=== PATIENT | female | born 1965 | race Caucasian/White ===

== ENCOUNTER 2025-06-19 11:11 | Inpatient (IN) | payer MEDICARE, SELFPAY ==
[2025-06-19] VITALS (19 sets, daily range): BP systolic 119–147; BP diastolic 38–71; PULSE 68–87; RESP 13–24; TEMP 36.5–36.9; O2SAT 89–100; BMI 91.0
--- NOTE | ~2025-06-19 | US_ITS ---
US renal BI 06/20/2025 16:39 Procedure: Realtime transabdominal ultrasound of the kidneys and bladder. Indication: Kidney disease Right renal echotexture is grossly normal, although evaluation limited due to patient body habitus. Right kidney measures 12.2 cm. No hydronephrosis. The left kidney is not visualized. Wren catheter present in the bladder limiting evaluation. Impression: 1: Limited study due to patient body habitus. No significant abnormality of the right kidney identified. Left kidney not visualized. Reviewed, dictated and finalized at location O. Impression: 1: Limited study due to patient body habitus. No significant abnormality of the right kidney identified. Left kidney not visualized.
--- NOTE | ~2025-06-19 | XR_ITS ---
EXAMINATION: XR chest 2V DATE: 06/19/2025 12:06 INDICATION: Shortness of breath TECHNIQUE: frontal view of the chest was obtained. COMPARISON: None FINDINGS: Elevation the right hemidiaphragm. Cardiomegaly and pulmonary vascular congestion. Opacities in the left mid and lower lung zones. No pleural effusion or pneumothorax. IMPRESSION: 1. Cardiomegaly with pulmonary vascular congestion. 2. Opacities in the left mid and lower lung zones which could represent atelectasis and/or pneumonia. 3. Elevation of the right hemidiaphragm. Reviewed, dictated and finalized at location A. IMPRESSION: 1. Cardiomegaly with pulmonary vascular congestion. 2. Opacities in the left mid and lower lung zones which could represent atelect asis and/or pneumonia. 3. Elevation of the right hemidiaphragm.
--- NOTE | ~2025-06-19 | US_ITS ---
US venous doppler [facility] 06/20/2025 16:39 Indication: Leg swelling Procedure: Study limited due to patient body habitus. Venous structures not visualized in either lower extremity. Comparison: No prior studies for comparison. Findings: Limited study due to patient body habitus. Impression: 1: Lower extremity venous structures not visualized due to body habitus. Cannot exclude deep venous thrombosis. Reviewed, dictated and finalized at location O. Impression: 1: Lower extremity venous structures not visualized due to body habitus. Cannot exclude deep venous thrombosis.
--- NOTE | 2025-06-19 11:14 | ECG_ITS ---
Test Date: 2025-06-19 11:16:38 Measurements Intervals [place] Rate: 86 P: 76 DE: 181 QRS: 91 QRSD: 104 T: 90 QT: 414 QTc: 497 Interpretive Statements SINUS RHYTHM LOW QRS VOLTAGE IN PRECORDIAL LEADS [QRS DEFLECTION < 1.0 mV IN CHEST LEADS] No previous ECG available for comparison Electronically Signed On 06-19-2025 14:38:56 CDT by Jayjay Cloud M.D.
[2025-06-19 11:41] LABS: Hematocrit 22.4 % (37.0-47.0); Immature Granulocyte Percent A 0.6 % (0-0.5); Lymphocytes Absolute Auto 0.90 K/mm3 (0.9-3.2); Mean Corpuscular HGB Conc 29.0 g/dl (32-36); Mean Corpuscular Hemoglobin 25.4 pg (26-34); Mean Corpuscular Volume 87.5 fl (80-100); Nucleated Red Blood Cells Absolute Auto 0.000 K/mm3 (0.0-0.012); Nucleated Red Blood Cells Perc 0.0 % (0.0-0.2); Platelet Count Result 140 k/mm3 (150-375); Red Blood Count 2.56 M/mm3 (4.2-5.4); White Blood Count 14.1 K/mm3 (4.5-10.0)
[2025-06-19 11:58] LABS: Alanine Aminotransferase 18 U/L (6-35); Albumin Level 3.3 g/dL (3.5-5.1); Alkaline Phosphatase 82 U/L (38-126); Aspartate Amino Transferase 45 U/L (14-36); Bilirubin,Total 0.9 mg/dL (0.2-1.3); Blood Urea Nitrogen 51 mg/dL (7-17); Calcium 8.1 mg/dL (8.4-10.2); Chloride 85 mmol/L (98-107); Estimated CRCL calculation 63 ml/min; Estimated Glomerular Filt Rate 27; Glucose 150 mg/dL (65-110); Potassium 3.7 mmol/L (3.4-5.0); Sodium 137 mmol/L (137-145); Total Protein 8.8 g/dL (6.3-8.2)
[2025-06-19 12:00] LABS: Hemoglobin 6.5 g/dL (12.0-15.0)
[2025-06-19 12:11] LABS: Carbon Dioxide > 40 mmol/L (22-30); NT Pro B Type Natriuretic Pept 9940 pg/mL (19.9-100); Troponin I 0.463 ng/mL (0.000-0.034)
[2025-06-19 12:16] LABS: INR 1.7; Prothrombin Time 19.8 Seconds (11.1-14.7)
[2025-06-19 12:17] LABS: Partial Thromboplastin Time 32.7 Seconds (22.3-36.8)
[2025-06-19 12:28] LABS: Anisocytosis Occasional; Hypochromasia Occasional; Schistocytes None Seen
--- NOTE | 2025-06-19 13:16 | ED_ITS ---
HPI - General Adult General Chief complaint: Shortness of Breath/Dyspnea Stated complaint: SOB Time Seen by Provider: 06/19/25 12:31 History of Present Illness HPI narrative: Patient 60-year-old female presents emergency department with chief complaint of shortness of breath patient normally wears 4 L nasal cannula and BiPAP night patient was my sign require her wear her BiPAP throughout the day yesterday but took it off today and was found to be saturating 75% on room air when EMS arrived Related Data Allergies Allergy/AdvReac Type Severity Reaction Status Date / Time clarithromycin Allergy Mild Diarrhea Verified 06/19/25 11:21 levofloxacin Allergy Mild Rash Verified 06/19/25 11:21 iron (From Venofer) AdvReac Severe Anaphylactic Verified 06/19/25 11:21 Shock Review of Systems 2 Review of Systems: A 10 system review of systems was completed on the patient and is negative except for what is stated in the HPI. Nursing and ancillary documentation was reviewed. Exam 2 Narrative: GENERAL: Morbidly obese, and in no acute distress. HEAD: Normocephalic, atraumatic. EYES: PERRLA and EOMI. ENT: Nares clear, no rhinorrhea or epistaxis. Mucous membranes moist. NECK: Supple. CHEST: Clear to auscultation. No respiratory distress. HEART: Regular rate and rhythm. No murmur heard. Normal peripheral pulses. ABDOMEN: Soft, nontender, nondistended, normal active bowel sounds. : Guaiac-positive stool EXTREMITIES: Normal range of motion. No edema. SKIN: Warm, dry, induration present in the skin folds with ulcerations that have been oozing blood. NEURO: No focal deficits. Alert and oriented x3. PSYCH: Normal mood and affect. Course Vital Signs Vital signs: Vital Signs Pulse Rate 87 06/19/25 11:14 Respiratory Rate 22 H 06/19/25 11:14 Blood Pressure 126/66 06/19/25 11:14 Pulse Oximetry 95 06/19/25 11:14 Oxygen Delivery Nasal Cannula 06/19/25 11:14 Oxygen Flow Rate 4 06/19/25 11:14 Temperature 36.9 C 06/19/25 12:30 Pulse Rate 87 06/19/25 11:14 Respiratory Rate 22 H 06/19/25 11:14 Blood Pressure 126/66 06/19/25 11:14 Pulse Oximetry 95 06/19/25 11:39 Oxygen Delivery Nasal Cannula 06/19/25 11:39 Oxygen Flow Rate 4 06/19/25 11:39 Medical Decision Making MDM Narrative Medical decision making narrative: Differential diagnosis includes pneumonia, ACS, GI bleed, CHF, Laboratory studies were obtained on the patient which showed hemoglobin of 6.5 the patient is guaiac positive to units packed red blood cells were ordered for the patient Chest x-ray showed evidence of pneumonia white blood cell count was elevated at 14 point 1 patient also had a procalcitonin of 10 lactic acid was 1.3 broad- spectrum antibiotic coverage was initiated blood cultures were obtained patient was given cefepime and vanc urinalysis also showed greater than 100 white blood cells 3+ leukocyte esterase 1+ bacteria Patient was negative for COVID flu and RSV Vital Signs Vital Signs: Vital Signs Pulse Rate 87 06/19/25 11:14 Respiratory Rate 22 H 06/19/25 11:14 Blood Pressure 126/66 06/19/25 11:14 Pulse Oximetry 95 06/19/25 11:14 Oxygen Delivery Nasal Cannula 06/19/25 11:14 Oxygen Flow Rate 4 06/19/25 11:14 Temperature 36.9 C 06/19/25 12:30 Pulse Rate 87 06/19/25 11:14 Respiratory Rate 22 H 06/19/25 11:14 Blood Pressure 126/66 06/19/25 11:14 Pulse Oximetry 95 06/19/25 11:39 Oxygen Delivery Nasal Cannula 06/19/25 11:39 Oxygen Flow Rate 4 06/19/25 11:39 Lab Data 06/19/25 11:36 06/19/25 11:36 Labs: Lab Results 06/19/25 06/19/25 06/19/25 Range/Units 11:36 13:57 13:58 WBC 14.1 H (4.5-10.0) K/mm3 RBC 2.56 L (4.2-5.4) M/mm3 Hgb 6.5 L* (12.0-15.0) g/dL Hct 22.4 L (37.0-47.0) % MCV 87.5 (80-100) fl MCH 25.4 L (26-34) pg MCHC 29.0 L (32-36) g/dl RDW 15.6 H (11.5-14.5) % Plt Count 140 L (150-375) k/mm3 MPV 9.9 (7.4-10.4) fl Immature Gran % (Auto) 0.6 H (0-0.5) % Neut % (Auto) 89.0 H (45.5-73.1) % Lymph % (Auto) 6.4 L (18.3-44.2) % [place] % (Auto) 3.5 (2.6-8.5) % Eos % (Auto) 0.1 (0-4.4) % Baso % (Auto) 0.4 (0.2-1.2) % Lymph # (Auto) 0.90 (0.9-3.2) K/mm3 [place] # (Auto) 0.5 (0.1-0.6) K/mm3 Eos # (Auto) 0.0 (0-0.3) K/mm3 Baso # (Auto) 0.1 (0.0-0.1) K/mm3 Abs Immat Gran (auto) 0.09 H (0.00-0.031) K/mm3 Absolute Neuts (auto) 12.6 H (1.3-6.7) K/mm3 Absolute Nucleated RBC 0.000 (0.0-0.012) K/mm3 Band Neutrophils % Not Reportable Nucleated RBC % 0.0 (0.0-0.2) % Platelet Estimate Adequate (Adequate) Hypochromasia Occasional Anisocytosis Occasional Schistocytes None seen PT 19.8 H (11.1-14.7) Seconds INR 1.7 APTT 32.7 (22.3-36.8) Seconds Sodium 137 (137-145) mmol/L Potassium 3.7 (3.4-5.0) mmol/L Chloride 85 L (98-107) mmol/L Carbon Dioxide > 40 H (22-30) mmol/L Anion Gap (4-12) mmol/L BUN 51 H (7-17) mg/dL Creatinine 1.92 H (0.7-1.0) mg/dL Estim Creat Clear Calc 63 ml/min Estimated GFR 27 L (59 - ) Glucose 150 H (65-110) mg/dL Lactic Acid 1.3 (0.7-2.0) mmol/L Calcium 8.1 L (8.4-10.2) mg/dL Magnesium 1.7 1.7 (1.6-2.3) mg/dL Total Bilirubin 0.9 (0.2-1.3) mg/dL AST 45 H (14-36) U/L ALT 18 (6-35) U/L Alkaline Phosphatase 82 (38-126) U/L Troponin I 0.463 H* (0.000-0.034) ng/mL NT-Pro-B Natriuret Pep 9940 H (19.9-100) pg/mL Total Protein 8.8 H (6.3-8.2) g/dL Albumin 3.3 L (3.5-5.1) g/dL Procalcitonin 10.5 ng/mL Urine Color Yellow (Yellow) Urine Appearance Turbid H (Clear) Urine pH 5.5 (5.0-9.0) Ur Specific [place] 1.014 (1.001-1.035) Urine Protein 2+ H (Negative) mg/dL Urine Glucose (UA) Negative (Negative) mg/dL Urine Ketones Negative (Negative) mg/dL Ur Blood (Man) 3+ H (Negative) Urine Nitrate Negative (Negative) Urine Bilirubin Negative (Negative) Urine Urobilinogen 1.0 (<2.0) mg/dL Add Ur Microanalysis Reviewed Leukocyte Esterase Rfl 3+ H (Negative) LEIA/UL Urine RBC 51-100 H (0-2) /hpf Urine WBC >100 H (0-3) /hpf Ur Squamous Epith Cells Occasional (Few) /hpf Urine Bacteria 1+ H /hpf Urine Casts >20 Hyaline Casts Present (None) /lpf Nasal MRSA (PCR) Pending Influenza A (RT-PCR) Negative (Negative) Influenza B (RT-PCR) Negative (Negative) RSV (RT-PCR) Negative (Negative) SARS-CoV-2 RNA (RT-PCR) Negative (Negative) Blood Type Pending Antibody Screen Pending Crossmatch See Detail Critical Care Time Critical Care Time Critical Care Time: Yes Total Critical Care Time: 35 Discharge Plan Discharge Clinical Impression: Anemia, Acute dyspnea, Acute non-ST elevation myocardial infarction (NSTEMI), Pneumonia, UTI (urinary tract infection) Patient Disposition: Still a Patient Condition: Stable Patient Language: [place] Follow-up/Referrals: UNKNOWN,DOCTOR [Primary Care Provider] Time of Disposition: 15:10
--- OUTSIDE RECORDS SUMMARY | 2025-06-19 13:33 | XMS_ITS | Encounter Summary ---
Author Organization [facility] Address 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
--- OUTSIDE RECORDS SUMMARY | 2025-06-19 13:33 | XMS_ITS | Encounter Summary ---
Author Organization [facility] Address 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
--- OUTSIDE RECORDS SUMMARY | 2025-06-19 13:33 | XMS_ITS | Encounter Summary ---
Author Organization [facility] Address 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
--- OUTSIDE RECORDS SUMMARY | 2025-06-19 13:33 | XMS_ITS | Clinical Summary ---
Author Organization [facility] Address [address] [place] [address] Care Team Providers Care Seo Analyst Name Role Phone Unavailable Primary Care Provider Unavailabl e Allergies Active Allergy Reactions Criticality Noted Date Comments Clarithromycin Diarrhea Low 10/11/2019 Levofloxacin Rash Low 03/17/2013 Penicillins Unknown 03/17/2013 Medications ipratropium-albu teroL (DUONEB) 0.5 mg-3 mg(2.5 mg base)/3 mL Solution for NebulizationIndi cations:Pneumoni a due to infectious organism, unspecified laterality, unspecified part of lung Take 3 mL by inhalation every 6 hours as needed for Shortness of Breath. 60 Each 2 021 Active Blood-Glucose Meter (OneTouch Ultra2 Meter) Used to check blood sugars four times daily E11.9 1 Each 023 Active CPAP / BIPAP suppliesIndicati ons:Obstructive sleep apnea syndrome Length of need: 99 months Mask Type: full face with headgear every 6 months, mask only every 3 months,2 cushions per month. Tubing: non heated 1 every 3 months, water chamber 1 every 6 months, chin strap 1 every 6 months, filters disposable 2 per month, filters reusable 1 per 6 months. 1 Each 023 Active aspirin (ECOTRIN EC) 81 mg Tablet, Delayed Release (E.C.) Take 1 Tablet (81 mg) by mouth daily. 100 Tablet 024 Active rosuvastatin (CRESTOR) 20 mg tablet Take 1 Tablet (20 mg) by mouth daily at bedtime. 30 Tablet 5 Active FLUoxetine (PROzac) 10 mg capsule Take one tab along with a 20 mg tablet daily to add up to 30 mg daily 30 Capsule 5 Active carvediloL (COREG) 12.5 mg tablet TAKE 1 TABLET(12.5 MG) BY MOUTH TWICE DAILY WITH MEALS 60 Tablet 5 Active silver sulfADIAZINE (SILVADENE) 1 % CreamIndications :Intertriginous candidiasis Apply daily to affected areas as needed for skin infection 400 Gram Active nystatin (MYCOSTATIN) 100,000 unit/gram CreamIndications :Intertriginous candidiasis Apply to affected area 2 times daily. 30 Gram 2 Active albuterol (PROVENTIL,JOB HARVINDER) 2.5 mg /3 mL (0.083 %) Solution for NebulizationIndi cations:Acute on chronic respiratory failure with hypoxia and hypercapnia (CMS/HCC) Take 3 mL (2.5 mg) by inhalation every 6 hours as needed for Wheezing. 120 mL 11 Active albuterol sulfate HFA 90 mcg/actuation aerosol inhaler Take 2 Puffs by inhalation every 6 hours as needed for Shortness of Breath. 8.5 Gram 1 Active furosemide (LASIX) 40 mg tablet TAKE 1 TABLET(40 MG) BY MOUTH TWICE DAILY 7 HOURS APART 180 Tablet 3 024 Active Insulin [place], Disposable, (BD Ultra-Fine Short Pen Needle) 31 gauge x 5/16 Needle USE TO INJECT INSULIN FOUR TIMES DAILY 400 Each 2 Active blood sugar diagnostic (OneTouch Ultra Test) Strip USE TO CHECK BLOOD SUGAR FOUR TIMES DAILY 400 Strip Active magnesium HYDROXIDE (MILK OF MAGNESIA) 400 mg/5 mL suspension Take 30 mL by mouth 1 time daily as needed for Constipation. Active polyethylene glycol (MIRALAX) 17 gram Powder in Packet Take 17 Grams by mouth 2 times daily as needed for Constipation. Active prochlorperazine (COMPAZINE) 25 mg Suppository Insert 25 mg by rectum every 12 hours as needed for Nausea/Emesis. Active insulin aspart (NovoLOG) 100 unit/mL injection Inject by subcutaneous injection. Active gabapentin (NEURONTIN) 100 mg capsule Take 100 mg by mouth 2 times daily. Active gabapentin (NEURONTIN) 100 mg capsuleIndicatio ns:Left lumbar radiculopathy Take 3 Capsules (300 mg) by mouth daily at bedtime. Active sennosides (SENOKOT) 8.6 mg tablet Take 1 Tablet (8.6 mg) by mouth 2 times daily. Active potassium CHLORIDE (K-TAB) 20 mEq Extended Release tablet Take 0.5 Tablets (10 mEq) by mouth daily with breakfast. Active pantoprazole (PROTONIX) 40 mg Tablet, Delayed Release (E.C.) Take 1 Tablet (40 mg) by mouth daily before breakfast. Active doxepin (SINEquan) 25 mg capsule Take 1 Capsule (25 mg) by mouth daily at bedtime. 30 Capsule Active Basaglar KwikPen U-100 Insulin 100 unit/mL (3 mL) pen syringeIndicatio ns:Type 2 diabetes mellitus with microalbuminuria , with long-term current use of insulin ([facility]) ADMINISTER 20 UNITS UNDER THE SKIN TWICE DAILY 15 mL 025 Active insulin aspart (NovoLOG) 100 unit/mL injection Inject 8 Units by subcutaneous injection 3 times daily with meals. 8 mL 3 025 Active insulin aspart, niacinamide, (Fiasp FlexTouch U-100 Insulin) 100 unit/mL (3 mL) Insulin Pen Inject 54 Units by subcutaneous injection 3 times daily after meals. INJECT UNDER THE SKIN THREE TIMES DAILY BEFORE MEAL IF BLOOD SUGAR IS: 151-200:2U, 201-250:4U, 251-300:6U,>300 :8U. MAX: 30 UNITS/DAY 3 mL 5 025 Active FLUoxetine (PROzac) 20 mg capsule TAKE 1 CAPSULE(20 MG) BY MOUTH DAILY 30 Capsule 025 Active baclofen (LIORESAL) 10 mg tabletIndication s:Chronic bilateral low back pain without sciatica TAKE 1 TABLET(10 MG) BY MOUTH TWICE DAILY 60 Tablet 025 Active baclofen (LIORESAL) 10 mg tabletIndication s:Chronic bilateral low back pain without sciatica TAKE 1 TABLET(10 MG) BY MOUTH TWICE DAILY 60 Tablet 025 2024 Discontinued Active Problems Patient Care Coordination No te Formatting of this note migh t be different from the original. Awning Hanger Helper - Dr. Dez Kramer Problem Noted Date Diagnosed Date Cellulitis of abdominal wall 12/26/2024 Panniculitis 12/26/2024 Hypertensive urgency 12/26/2024 Type 2 diabetes mellitus wit h hyperglycemia, with long-term current use of insulin 12/26/2024 Generalized weakness 10/19/2024 Elevated troponin 10/16/2024 Chronic respiratory failure 10/16/2024 Hypoventilation syndrome 10/16/2024 Elevated brain natriuretic peptide (BNP) level 0 10/16/2024 Dyspnea 10/16/2024 Chronic anemia 12/06/2023 Congestive heart failure 12/06/2023 Acute diastolic heart failur e with preserved ejection fraction 12/06/2023 Diplopia 12/04/2023 Acute on chronic heart failu re with preserved ejection fraction (HFpEF) 11/24/2022 Acute on chronic respiratory failure with hypoxia and hypercapnia 11/21/2022 Acute blood loss anemia 11/21/2022 Anxiety and depression 10/02/2019 Type 2 diabetes mellitus with microalbuminuria 0 03/17/2013 Mixed hyperlipidemia 03/17/2013 Morbid obesity with BMI of 70 and over, adult Benign essential HTN 03/17/2013 Peptic ulcer 03/17/2013 Dysphagia, oral phase 01/13/2012 3rd cranial nerve palsy, right 05/31/2010 Lumbar radiculitis Resolved Problems Problem Noted Date Diagnosed Date Resolved Date Acute respiratory failure with hypoxia 10/02/2019 11/22/2020 COPD with exacerbation 10/02/201911/22 Mild episode of recurrent ma yeison depressive disorder 03/17/2013 11/22/2020 Esophageal reflux 03/17/2013 08/02/2019 Backache, unspecified 03/17/20132018 Sciatica 06/24/2010 08/02/2019 Encounters Date Type Department Care Team Description 06/13/2025 External Device Data [facility] ABSTRACTION Provider, Abstract 06/02/[address] [address] Siria Spangler, CELL BUILDER Chronic bilateral low back pain without sciatica 05/08/2025 Refill [facility] [address] [place] [phone] Siria Spangler [place], CELL BUILDER Chronic bilateral low back pain without sciatica 05/03/[address] [phone] Aníbal Siria [place], CELL BUILDER request 05/03/2025 External Device Data [facility] ABSTRACTION Provider, Abstract 04/05/[address] [phone] Siria Spanglerlexie, CELL BUILDER Chronic bilateral low back pain without sciatica 03/21/2025 External Device Data [facility] ABSTRACTION Provider, Abstract from Last 3 Months Immunizations Immunization Administration Dates Next Due (ADACEL/BOOSTRIX)(10 YR UP) TDAP VACCINE, 0.5ML, IM 10/04/2015 (PREVNAR 20)(6 WKS UP) PNEUM OCOCCAL CONJUGATE VACCINE 20-VALENT (PCV20), POLYSACCHARIDE [id number] CONJUGATE, ADJUVANT 0.5 ML (PF) IM 07/17/2022 (TDVAX)(7 YRS UP) TETANUS AN D DIPHTHERIA TOXOIDS, ADSORBED (2 LF OF TETANUS TOXOID AND 2 LF OF DIPHTHERIA TOXOID), 0.5ML (PF), IM 06/02/2004 INFLUENZA VACCINE QUADRIVALE NT 3 YR UP PF IM 07/13/2018 INFLUENZA VACCINE QUADRIVALE NT 6 MOS UP CELL DERIVED IM 07/03/2020 INFLUENZA VACCINE QUADRIVALE NT 6 MOS UP PF IM 09/22/2023,07/17/2022,07/03/2021,07/12 Influenza Seasonal Unspecifi ed Formulation IM 07/04/2020,06/02/2012,10/03/2011 Influenza Vaccine Quad Split (18-64) Pf Id 06/15/2017,10/04/2015 Influenza Vaccine Split 3+ Yrs PF IM 08/02/2013 Influenza Vaccine Split PF ID 06/12/2016,11/11/2 014 Pneumococcal conjugate, unsp ecified formulation 04/10/2011 Family History Medical History Relation Name Comments Hypertension Father Cancer Mother Lymphoma Diabetes Mother Hypertension Mother Relation Name Status Comments Father Mother Social History Tobacco Use Types Packs/Day Years Used Date Smoking Tobacco: Never Smokeless Tobacco: Never Tobacco Cessation:Counseling Given: No Alcohol Use Standard Drinks/Week Comments Not Currently 0 (1 standard drink = 0.6 oz pur e alcohol) once a year Feeling Safe Answer Date Recorded Within the last year, have y ou been afraid of your partner or ex-partner? Patient declined 08/02/2019 Within the last year, have y ou been humiliated or emotionally abused in other ways by your partner or ex-partner? Patient declined 08/02/2019 Within the last year, have y ou been kicked, hit, slapped, or otherwise physically hurt by your partner or ex-partner? Patient declined 08/02/2019 Within the last year, have y ou been raped or forced to have any kind of sexual activity by your partner or ex-partner? Patient declined 08/02/2019 Social Connections Answer Date Recorded In a typical week, how many times do you talk on the phone with family, friends, or neighbors? Patient declined 08/02/2019 How often do you get togethe r with friends or relatives? Patient declined 08/02/2019 How often do you attend yazidi or alevism serv ices? Patient declined 08/02/2019 Do you belong to any clubs o r organizations such as yazidi groups, unions, fraternal or athletic groups, or school groups? Patient declined 08/02/2019 How often do you attend meet ings of the clubs or organizations you belong to? Patient declined 08/02/2019 Are you , , di vorced, , never , or living with a partner? Patient declined 08/02/2019 Financial Resource Strain Answer Date R ecorded How hard is it for you to pa y for the very basics like food, housing, medical care, and heating? Not hard at all 08/02/2019 Food Insecurity Answer Date Recorded Within the past 12 months, y ou worried that your food would run out before you got the money to buy more. Patient declined Within the past 12 months, t he food you bought just didn't last and you didn't have money to get more. Patient declined 01/2019 Transportation Needs Answer Date Record ed In the past 12 months, has l ack of transportation kept you from medical appointments or from getting medications? Patient declined 08/02/2019 In the past 12 months, has l ack of transportation kept you from meetings, work, or from getting things needed for daily living? Patient declined 08/02/2019 Feeling Safe Answer Date Recorded Are you in a relationship wi th someone who hurts you emotionally and/or physically? No 12/26/2024 Food Insecurity Answer Date Recorded Patient needs follow up regardin 01/27/2025 Transportation Needs Answer Date Record ed Patient needs follow up regardin 01/27/2025 Housing Stability Answer Date Recorded Social/Environmental Concerns No concerns Utility Needs Answer Date Recorded Patient needs follow up regardin 01/27/2025 Comments No Sex and Gender Information Value Date Recorded Sex Assigned at Not on file Legal Sex Female 5:08 AM NURSE PRACTICAL Gender Identity Not on file Sexual Orientation Not on file Occupation Industry Job Start Date Job End Date Not on file Not on file Not on file Not on file Last Filed Vital Signs Vital Sign Reading Time Taken Comments Blood Pressure 145/61 12/30/2024 12:27 PM CDT RN notified Pulse 65 12/30/2024 12:27 PM CDT Temperature 36.9 C (98.4 F) 12/30/2024 12:27 PM CDT Respiratory Rate 16 12/30/2024 12:2 7 PM CDT Oxygen Saturation 100% 12/30/2024 12: 27 PM CDT Inhaled Oxygen Concentration - - Weight 203.9 kg (449 lb 9.6 oz) 12/26/2024 7:29 PM CDT Height 167.6 cm (5' 6) 12/26/2024 7:29 PM CDT Body Mass Index 72.57 12/26/2024 7:29 PM CDT Plan of Treatment Health Maintenance Due Date Last Done Comments HEPATITIS B VACCINES (1 of 3 - 19+ 3-dose series) 1986 HPV/Cotest (21-29) 1988 HPV/Cotest (30-65) 1997 BREAST CANCER SCREENING 03/21/2010 03/21/20 09 (Previously completed) COLORECTAL SCREENING 2012 FIT-DNA Q 3 years 2012 Flex Sig/CT Colonography Q 5 years 2012 ZOSTER VACCINE (1 of 2) 2017 DIABETES ANNUAL RETINAL EXAM 08/17/2019, 02/08/2014 (Previously completed), 08/02/2013 Colorectal Cancer Screening 06/18/2020 FIT/FOBT Q 1 year 06/18/2020 06/18/2019 DIABETES MICROALBUMIN ANNUAL SCREEN 03/26/2024 03/26/2023, 07/03/2021, 04/10/2020, Additional history exists DIABETES ANNUAL FOOT EXAM 09/22/20242022, 07/17/2022, 07/03/2021, Additional history exists DIABETES HBA1C Q 6 MONTHS 11/05/20242023, 09/22/2023, 03/26/2023, Additional history exists INFLUENZA VACCINE (#1) 2025 4, 09/22/2023, 07/17/2022, Additional history exists LDL CHOLESTEROL ANNUAL 05/05/2025 4, 09/22/2023, 07/17/2022, Additional history exists COVID-19 Vaccine (3 - 2024-2 6 season) 2025 11/24/2020, 10/27/2020 DTAP/TDAP/TD VACCINES (2 - T d or Tdap) 10/04/2025 10/04/2015, 06/02/2004 PAP SMEAR Discontinued 03/21/2009 (Prev iously completed) CERVICAL CANCER SCREENING Discontinued Procedures Procedure Name Priority Date/Time Associated Diagnosis Comments LIPID PANEL Routine 05/05/2024 9:39 AM CDT Mixed hyperlipidemia HEMOGLOBIN A1C Routine 05/05/2024 9:39 AM CDT Type 2 diabetes mellitus with hyperglycemia, with long-term current use of insulin ([facility]) MICROALBUMIN/CREATI NINE RATIO, RANDOM UR Routine 03/26/2023 11:08 AM CDT Benign hypertension Type 2 diabetes mellitus without complication, without long-term current use of insulin (CMS/HCC) Mixed hyperlipidemia OCCULT BLOOD IMMUNOASSAY, COLORECTAL SCREEN Routine 06/18/2019 7:00 AM CDT Screening for colon cancer HM DIABETES EYE EXAM Routine 08/17/2018 from Last 3 Months or Most Recently Relevant to Health Maintenance Results * (ABNORMAL) HEMOGLOBIN A1C (05/05/2024 9:39 AM CDT) HEMOGLOBIN A1C 8.7(H) <5.7 % of total Hgb [facility] Comment: For someone without known diabetes, a hemoglobin A1c value of 6.5% or greater indicates that they may have diabetes and this should be confirmed with a follow-up test. For someone with known diabetes, a value <7% indicates that their diabetes is well controlled and a value greater than or equal to 7% indicates suboptimal control. A1c targets should be individualized based on duration of diabetes, age, comorbid conditions, and other considerations. Currently, no consensus exists regarding use of hemoglobin A1c for diagnosis of diabetes for children. ESTIMATED AVERAGE GLUCOSE (MG/DL) 203 mg/dL [facility] ESTIMATED AVERAGE GLUCOSE (MMOL/L) 11.2 mmol/L [facility] Comment: This test was performed on the Senait dafne c503 platform. Effective 12/14/23, a change in test platforms from the [employer] Installer to the Senait dafne c503 may have shifted HbA1c results compared to historical results. Based on laboratory validation testing conducted at [facility], the Senait platform relative to the Wilks platform had an average increase in HbA1c value of < or = 0.3%. This difference is within accepted variability established by the National Glycohemoglobin Standardization Program. Note that not all individuals will have had a shift in their results and direct comparisons between historical and current results for testing conducted on different platforms is not recommended. Test Performed at: [facility] [address] [place] [address] Gemma Thi Vo Blood 05/05/2024 9:39 AM CDT 05/05/2024 10:17 PM CDT Siria Spangler CELL BUILDER CHEMISTRY ORDERABLES Final Result [facility] [phone] [facility] [address] [place] [address] * LIPID PANEL (05/05/2024 9:39 AM CDT) CHOLESTEROL 119 <200 mg/dL Sarah [facility] HDL 65 > OR = 50 mg/dL Sarah HoffmannMaxiNancy geovanny [facility] TRIGLYCERIDE 71 <150 mg/dL [facility] Hoff[facility] [place] LDL CALCULATED 39 mg/dL (calc) Sarah HoffmannMaxiNancy [facility] [place] Comment: Reference range: <100 Desirable range <100 mg/dL for primary prevention; <70 mg/dL for patients with CHD or diabetic patients with > or = 2 CHD risk factors. LDL-C is now calculated using the Noris calculation, which is a validated novel method providing better accuracy than the Friedewald equation in the estimation of LDL-C. Chriss SS et al. ISAC. 2013;310(19): 8465-9660 (http://education.[employer]/faq/JFT137) CHOL/HDL RATIO 1.8 <5.0 (calc) Sarah FuentesNancy geovanny Samson NON-HDL CHOLESTEROL 54 <130 mg/dL (calc) Sarah HoffmannMaxiNancy [facility] [place] Comment: For patients with diabetes plus 1 major ASCVD risk factor, treating to a non-HDL-C goal of <100 mg/dL (LDL-C of <70 mg/dL) is considered a therapeutic option. Test Performed at: [facility] [address] [address] AlejandraBeckie [facility] Blood 05/05/2024 9:39 AM CDT 05/05/2024 10:17 PM CDT Siria Spangler [facility] CHEMISTRY ORDERABLES Final Result [facility] [phone] [facility] [address] [place] [address] * (ABNORMAL) MICROALBUMIN/CREATININE RATIO, RANDOM UR (03/26/2023 11:08 AM CDT) Creatinine, Urine 64 20 - 275 mg/dL [facility] MICROALBUMIN, URINE 4.5 See Note: mg/dL [facility] Comment: Reference Range: Reference Range Not established MICROALBUMIN/CREAT RATIO, UR 70(H) <30 mcg/mg creat [facility] Comment: The ADA defines abnormalities in albumin excretion as follows: Albuminuria Category Result (mcg/mg creatinine) Normal to Mildly increased <30 Moderately increased 30-299 Severely increased > OR = 300 The ADA recommends that at least two of three specimens collected within a 3-6 month period be abnormal before considering a patient to be within a diagnostic category. Test Performed at: [facility] [address] [place] [address] Gemma Castellon MD Urine URINE SPECIMEN OBTAINED BY CLEAN CATCH PROCEDURE / Unknown 03/26/2023 11:08 AM CDT 03/26/2023 9:28 PM CDT Shahbaz Shelby MD URINE ORDERABLES Final Result Performing Organization Address [facility]/ZIP Co de Phone Number [facility] [phone] [facility] [address] [place] [address] * OCCULT BLOOD IMMUNOASSAY, COLORECTAL SCREEN (06/18/2019 7:00 AM CDT) OCCULT BLOOD, STOOL Negative Negative 07/01/2019 12:08 PM CDT [email or web address] Stool STOOL SPECIMEN / Unknown Collection / Unknown 06/18/2019 7:00 AM CDT 07/01/2019 11:51 AM CDT Shahbaz Shelby MD BODY FLUIDS AND STOOLS Final Result Performing Organization Address [facility]/ZIP Co de Phone Number [email or web address] CLIA# [id number] [address] [place] [address] * (ABNORMAL) DIABETES EYE EXAM (08/17/2018) Ian Leiva OD HEALTH MAINTENANCE Edited Resul t - Final Performing Organization Address City/[facility]/ZIP Co de Phone Number [facility] from Last 3 Months or Most Recently Relevant to Health Maintenance Insurance MEDICARE PART A AND B Advance Directives For more information, please contact: [phone] * Full Code (Latest Code Status on File) Date Activated Date Inactivated Comments 12/27/2024 12:52 AM 12/30/2024 5:31 PM * Full Code Date Activated Date Inactivated Comments 10/16/2024 3:12 PM 10/20/2024 6:50 PM * Full Code Date Activated Date Inactivated Comments 12/04/2023 7:42 PM 12/06/2023 5:53 PM * Full Code Date Activated Date Inactivated Comments 11/22/2022 8:30 AM 12/17/2022 6:28 PM * Full Code Date Activated Date Inactivated Comments 11/22/2022 7:42 AM 11/22/2022 8:30 AM
--- OUTSIDE RECORDS SUMMARY | 2025-06-19 13:33 | XMS_ITS | Encounter Summary ---
Author Organization [facility] Address [address] [place] [address] Care Team Providers Care Laser Specialist Name Role Phone Unavailable Primary Care Provider Unavailabl e Encounter Details Date Type Department Care Team (Latest Contact Info) Description 03/08/2002 Outpatient Historical [facility] Emmett Grady MD [address] [place] [phone] EXCESSIVE MENSTRUATION (Primary Dx) Social History Tobacco Use Types Packs/Day Years Used Date Smoking Tobacco: Never Assessed Comments Unknown Sex and Gender Information Value Date Recorded Sex Assigned at Not on file Legal Sex Female 5:08 AM SURVEYOR'S ASSISTANT Gender Identity Not on file Sexual Orientation Not on file documented as of this encounter Plan of Treatment Not on file documented as of this encounter Visit Diagnoses Diagnosis Excessive or frequent menstruation- Primary documented in this encounter Additional Health Concerns Infection Onset Date Last Indicated Resolved Time MRSA Comment:reddy 12/10/2022 12/10/2022 12/10/2022 6:18 PM C DT R/O COVID-12/04/2023 12/04/2023 12/04/2023 3:17 PM SURVEYOR'S ASSISTANT R/O COVID-19 10/16/2024 10/16/2024 10/16/2024 1:31 PM SURVEYOR'S ASSISTANT documented as of this encounter
--- OUTSIDE RECORDS SUMMARY | 2025-06-19 13:33 | XMS_ITS | Encounter Summary ---
Author Organization [facility] Address [address] Gonzalez: Epic Prelude ADT [place] [address] Care Team Providers Care River Boat Captain Name Role Phone Unavailable Primary Care Provider Unavailabl e Encounter Details Date Type Department Care Team (Late st Contact Info) Description 09/09/1993 Outpatient Historical Emmett Grady MD [address] [phone] Social History Tobacco Use Types Packs/Day Years Used Date Smoking Tobacco: Never Assessed Comments Unknown Sex and Gender Information Value Date Recorded Sex Assigned at Not on file Legal Sex Female 5:08 AM KINESIOLOGY PROFESSOR Gender Identity Not on file Sexual Orientation Not on file documented as of this encounter Plan of Treatment Not on file documented as of this encounter Visit Diagnoses Not on filedocumented in this encounter Additional Health Concerns Infection Onset Date Last Indicated Resolved Time MRSA Comment:reddy 12/10/2022 12/10/2022 12/10/2022 6:18 PM C DT R/O COVID-19 12/04/2023 12/04/2023 12/04/2023 3:17 PM KINESIOLOGY PROFESSOR R/O COVID-19 10/16/2024 10/16/2024 10/16/2024 1:31 PM KINESIOLOGY PROFESSOR documented as of this encounter
--- OUTSIDE RECORDS SUMMARY | 2025-06-19 13:33 | XMS_ITS | Encounter Summary ---
Author Organization [facility] Address [address] [place] [address] Care Team Providers Care Spool Fixer Name Role Phone Unavailable Primary Care Provider Unavailabl e Encounter Details Date Type Department Care Team (Late st Contact Info) Description 03/10/2002 Emergency [facility] Arcelia Gruber URIN TRACT INFECTION NOS (Primary Dx) Social History Tobacco Use Types Packs/Day Years Used Date Smoking Tobacco: Never Assessed Comments Unknown Sex and Gender Information Value Date Recorded Sex Assigned at Not on file Legal Sex Female 5:08 AM PROGRAM COORDINATOR FOR [employer]IDENCE [employer] Gender Identity Not on file Sexual Orientation Not on file documented as of this encounter Plan of Treatment Not on file documented as of this encounter Visit Diagnoses Diagnosis Urinary tract infection, site not specified- Primary documented in this encounter Additional Health Concerns Infection Onset Date Last Indicated Resolved Time MRSA Comment:reddy 12/10/2022 12/10/2022 12/10/2022 6:18 PM C DT R/O COVID-19 12/04/2023 12/04/2023 12/04/2023 3:17 PM PROGRAM COORDINATOR FOR [employer] R/O COVID-19 10/16/2024 10/16/2024 10/16/2024 1:31 PM PROGRAM COORDINATOR FOR [employer] documented as of this encounter
--- OUTSIDE RECORDS SUMMARY | 2025-06-19 13:33 | XMS_ITS | Encounter Summary ---
Author Organization [facility] Address 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
--- OUTSIDE RECORDS SUMMARY | 2025-06-19 13:33 | XMS_ITS | Encounter Summary ---
Author Organization [facility] Address 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
[2025-06-19 13:44] LABS: Magnesium 1.7 mg/dL (1.6-2.3)
[2025-06-19 13:52] LABS: Procalcitonin 10.5 ng/mL
[2025-06-19 14:17] LABS: Magnesium 1.7 mg/dL (1.6-2.3)
[2025-06-19] MEDS: CEFEPIME 2 GM in SODIUM CHLORIDE 0.9% IV 50 ML 100 ML IVPB ×2 (14:21→22:15)
[2025-06-19 14:46] LABS: Influenza A QL RT-PCR Negative (Negative); Influenza B QL RT-PCR Negative (Negative); RSV RNA, RT-PCR Negative (Negative); SARS-CoV-2 RNA PCR Negative (Negative)
[2025-06-19 14:59] LABS: Add Urine Microscopic? YES; Appearance Urine Turbid (Clear); Glucose Urine UA Negative (Negative); Leukocyte Esterase Ur 3+ LEU/UL (Negative); Need Manual Microscopic Reviewed; Nitrate Urine Negative (Negative); Non Pathogenic Casts >20; Specific Grav Ur 1.014 (1.001-1.035)
[2025-06-19] MEDS: VANCOMYCIN 1,250 MG/NS 250 ML 1,250 MG/250 ML BAG 166.67 MG IVPB ×2 (15:12→17:05)
[2025-06-19 15:17] LABS: MRSA (PCR) DETECTED (NOT DETECTE)
--- NOTE | 2025-06-19 16:40 | WNDPHOTO ---
PHOTO ONLY - See Nursing Notes and/ or assessments for documentation.
--- NOTE | 2025-06-19 16:41 | WNDPHOTO ---
PHOTO ONLY - See Nursing Notes and/ or assessments for documentation.
--- NOTE | 2025-06-19 16:42 | WNDPHOTO ---
PHOTO ONLY - See Nursing Notes and/ or assessments for documentation.
--- NOTE | 2025-06-19 16:42 | WNDPHOTO ---
PHOTO ONLY - See Nursing Notes and/ or assessments for documentation.
--- NOTE | 2025-06-19 16:43 | WNDPHOTO ---
PHOTO ONLY - See Nursing Notes and/ or assessments for documentation.
--- NOTE | 2025-06-19 16:43 | WNDPHOTO ---
PHOTO ONLY - See Nursing Notes and/ or assessments for documentation.
[2025-06-19 17:23] LABS: Hematocrit 23.1 % (37.0-47.0)
[2025-06-19 17:36] LABS: Hemoglobin 6.6 g/dL (12.0-15.0)
--- NOTE | 2025-06-19 18:39 | PC.NURSE ---
This patient, Lourdes Goncalves, was admitted to IMU Room 210-01 at 1625. Patient/family oriented to hospital policies and general routines including ID bracelet, bed and alarms, visiting hours, pain management, procedures, bathroom and other care routines, personal items, smoking policy, room service/diet, and visiting hours. Information on how to activate the Rapid Response Team has been discussed. Patient/Family are encouraged to report perceived risks to care and to ask questions if they do not understand what they are told or what they should do.
[2025-06-19] MEDS: SODIUM CHLORIDE 0.9% IV 250 ML 30 ML IV CONT (18:40)
[2025-06-19] MEDS: FUROSEMIDE INJ 40 MG/4 ML VIAL 20 MG IV PUSH (20:36)
[2025-06-19] MEDS: ONDANSETRON INJ 4 MG/2 ML VIAL IV PUSH (20:36)
[2025-06-19] MEDS: DOXYCYCLINE IV 100 MG in SODIUM CHLORIDE 0.9% IV 100 ML IVPB (20:53)
[2025-06-19 21:54] LABS: Hematocrit 25.7 % (37.0-47.0); Hemoglobin 7.3 g/dL (12.0-15.0)
[2025-06-19 22:05] LABS: Blood Urea Nitrogen 55 mg/dL (7-17); Calcium 7.9 mg/dL (8.4-10.2); Carbon Dioxide > 40 mmol/L (22-30); Chloride 87 mmol/L (98-107); Estimated CRCL calculation 70 ml/min; Estimated Glomerular Filt Rate 30; Glucose 186 mg/dL (65-110); Potassium 3.6 mmol/L (3.4-5.0); Sodium 136 mmol/L (137-145)
--- NOTE | 2025-06-19 22:05 | PM.IMHP ---
H&P: HPI History of Present Illness Date/Time: 06/19/25 22:05 Chief Complaint: Shortness of breath Narrative: 60-year-old female with class 3 obesity with BMI 91, bed-bound, chronic indwelling Wren catheter, CHF, obstructive disease on BiPAP during naps and sleep, chronic respiratory failure on 3 L nasal cannula continuously flu, insulin-dependent diabetes mellitus. The patient presents to [facility] ER from assisted where she is a resident via EMS with shortness of breath. In the ER she was placed on 4 L nasal cannula, she did have further but transient desaturations in the IMU. Blood pressure 130/48, heart rate 72, afebrile. Found to have a hemoglobin of 6.5 on admission, 2 units PRBC ordered. Stool guaiac positive. WBC 11931, platelets 140, INR 1.7, bicarb 40, BUN 51, serum creatinine 1.92, AST 45, AST 18, troponin 0.463, BNP 9900, albumin 3.3, procalcitonin 10.5, urinalysis indicative of infection, nasal MRSA PCR positive, quad viral screen negative. Two view chest x-ray demonstrates cardiomegaly with pulmonary vascular congestion, opacities in the left mid and lower lung zones which could represent atelectasis and/or pneumonia, elevation of right hemidiaphragm. I have reviewed this myself as well. She was given cefepime, doxycycline, vancomycin as well and blood cultures were drawn. Review of Systems Review of Systems: All systems reviewed & are unremarkable except as noted in HPI and below (Subjective) [facility] Family History Family History Mother Diabetes mellitus Cancer Hypertension Father Diabetes mellitus CKD (chronic kidney disease) Social History Social History Smoking status: Never smoker Alcohol intake: never Substance use: never Lack of Transportation: YES Lack of Food: Never True Current Housing: I Have Housing Concerned About Future Housing: YES Difficulty Paying Gas/Electric Bills: No Difficulty Paying for Meds: No Currently Unemployed: No Education: Trade/Vocational Certificate Difficulty w/ Childcare or Family Care: No Spiritual care concerns: No Meds Home Medications and Allergies Home Medications ?Medication ?Instructions ?Recorded ?Confirmed ?Type albuterol sulfate 90 mcg/actuation 2 puff inhalation Q4H PRN 06/19/25 06/19/25 History aerosol inhaler shortness of breath or wheezing alprazolam 0.25 mg tablet 0.25 mg PO BID PRN anxiety 06/19/25 06/19/25 History aspirin 81 mg chewable tablet 81 mg PO DAILY 06/19/25 06/19/25 History baclofen 10 mg tablet 10 mg PO BID 06/19/25 06/19/25 History carvedilol 12.5 mg tablet 12.5 mg PO BID 06/19/25 06/19/25 History cephalexin 500 mg capsule 500 mg PO QID 06/19/25 06/19/25 History doxepin 25 mg capsule 25 mg PO HS 06/19/25 06/19/25 History fluconazole 100 mg tablet 100 mg PO DAILY 06/19/25 06/19/25 History fluoxetine 40 mg capsule 40 mg PO DAILY 06/19/25 06/19/25 History gabapentin 400 mg capsule 400 mg PO HS 06/19/25 06/19/25 History glucagon 1 mg solution for 1 mg subcut ONCE PRN hypoglycemia 06/19/25 06/19/25 History injection (Glucagon Emergency Kit) hydrocodone 5 mg-acetaminophen 325 1 tablet PO Q6H PRN pain 06/19/25 06/19/25 History mg tablet insulin glargine-yfgn 100 unit/mL 20 unit subcut BID 06/19/25 06/19/25 History (3 mL) subcutaneous pen insulin lispro 100 unit/mL 6 unit subcut AC 06/19/25 06/19/25 History subcutaneous solution metolazone 2.5 mg tablet 2.5 mg PO DAILY 06/19/25 06/19/25 History nystatin 100,000 unit/gram topical 1 applic topical BID 06/19/25 06/19/25 History powder rosuvastatin 20 mg tablet 20 mg PO HS 06/19/25 06/19/25 History torsemide 20 mg tablet 20 mg PO BID 06/19/25 06/19/25 History Allergies Allergy/AdvReac Type Severity Reaction Status Date / Time clarithromycin Allergy Mild Diarrhea Verified 06/19/25 17:02 levofloxacin Allergy Mild Rash Verified 06/19/25 17:02 Penicillins Allergy Unknown Rash Verified 06/19/25 17:02 iron (From Venofer) AdvReac Severe Anaphylactic Verified 06/19/25 17:02 Shock Vital Signs Vital Signs - 24 hr 06/19/25 11:14 06/19/25 11:39 06/19/25 12:30 Temperature 98.4 F Pulse Rate 87 Respiratory Rate 22 H Blood Pressure 126/66 Pulse Oximetry 95 95 Oxygen Delivery Nasal Cannula Nasal Cannula Oxygen Flow Rate 4 4 06/19/25 16:10 06/19/25 18:00 06/19/25 18:10 Temperature 97.9 F Pulse Rate 87 72 74 Respiratory Rate 16 18 Blood Pressure 147/60 H 128/50 L Pulse Oximetry 96 100 Oxygen Delivery Oxygen Flow Rate 06/19/25 18:25 06/19/25 19:25 06/19/25 19:50 Temperature 98.1 F 98.1 F 97.7 F Pulse Rate 70 69 72 Respiratory Rate 20 24 H 24 H Blood Pressure 130/48 L 125/71 119/38 L Pulse Oximetry 100 100 100 Oxygen Delivery Oxygen Flow Rate 06/19/25 20:00 06/19/25 20:22 06/19/25 20:46 Temperature 97.7 F 98 F Pulse Rate 73 72 Respiratory Rate 16 20 20 Blood Pressure 138/57 L 132/49 L Pulse Oximetry 91 91 89 L Oxygen Delivery High Flow Nasal Cannula Oxygen Flow Rate 5 Exam Const: General: comfortable and no acute distress Other: A&O x3, morbid obesity HENMT: Mouth: Yes moist mucous membranes Eyes: Pupils: Equal, round and reactive pupils present Neck: Neck: supple Resp: Other: Slight pursed breathing, expiratory wheeze and diffuse crackles Cardio: Rate: regular rate Rhythm: regular rhythm Heart sounds: no murmurs GI: Inspection: non-distended GI Palp: Yes Soft to palpation Neuro: Other: Globally weak due to chronic deconditioning Extrem: Other: Lipodermatosclerosis of the bilateral lower extremities with underlying pitting edema H&P: Results Labs Labs: Short CBC 06/19/25 06/19/25 Range/Units 11:36 17:14 WBC 14.1 H (4.5-10.0) K/mm3 Hgb 6.5 L* 6.6 L* (12.0-15.0) g/dL Hct 22.4 L 23.1 L (37.0-47.0) % Plt Count 140 L (150-375) k/mm3 BMP 06/19/25 11:36 Sodium 137 Potassium 3.7 Chloride 85 L Carbon Dioxide > 40 H BUN 51 H Creatinine 1.92 H Glucose 150 H Calcium 8.1 L Cardiac Enzymes 06/19/25 Range/Units 11:36 Troponin I 0.463 H* (0.000-0.034) ng/mL Liver Function 06/19/25 Range/Units 11:36 Total Bilirubin 0.9 (0.2-1.3) mg/dL AST 45 H (14-36) U/L ALT 18 (6-35) U/L Alkaline Phosphatase 82 (38-126) U/L Albumin 3.3 L (3.5-5.1) g/dL Urine 06/19/25 Range/Units 13:58 Urine Color Yellow (Yellow) Urine Appearance Turbid H (Clear) Urine pH 5.5 (5.0-9.0) Ur Specific [place] 1.014 (1.001-1.035) Urine Protein 2+ H (Negative) mg/dL Urine Glucose (UA) Negative (Negative) mg/dL Assessment and Plan Assessment and plan (1) Pneumonia: Code(s): J18.9 - Pneumonia, unspecified organism Status: Acute (2) Acute dyspnea: Code(s): R06.00 - Dyspnea, unspecified Status: Acute (3) Anemia: Code(s): D64.9 - Anemia, unspecified Status: Acute (4) UTI (urinary tract infection): Code(s): N39.0 - Urinary tract infection, site not specified Status: Acute (5) Acute non-ST elevation myocardial infarction (NSTEMI): Code(s): I21.4 - Non-ST elevation (NSTEMI) myocardial infarction Status: Acute (6) Acute hypoxemic respiratory failure: Code(s): J96.01 - Acute respiratory failure with hypoxia Status: Acute (7) Acute exacerbation of chronic heart failure: Code(s): I50.9 - Heart failure, unspecified Status: Acute Plan 60-year-old female with class 3 obesity with BMI 91, bed-bound, chronic indwelling Wren catheter, CHF, obstructive disease on BiPAP during naps and sleep, chronic respiratory failure on 3 L nasal cannula continuously flu, insulin-dependent diabetes mellitus. The patient presents to [facility] ER from assisted where she is a resident via EMS with shortness of breath. In the ER she was placed on 4 L nasal cannula, she did have further but transient desaturations in the IMU. Blood pressure 130/48, heart rate 72, afebrile. Found to have a hemoglobin of 6.5 on admission, 2 units PRBC ordered. Stool guaiac positive. WBC 79302, platelets 140, INR 1.7, bicarb 40, BUN 51, serum creatinine 1.92, AST 45, AST 18, troponin 0.463, BNP 9900, albumin 3.3, procalcitonin 10.5, urinalysis indicative of infection, nasal MRSA PCR positive, quad viral screen negative. Two view chest x-ray demonstrates cardiomegaly with pulmonary vascular congestion, opacities in the left mid and lower lung zones which could represent atelectasis and/or pneumonia, elevation of right hemidiaphragm. I have reviewed this myself as well. She was given cefepime, doxycycline, vancomycin as well and blood cultures were drawn. ----- As mentioned above she did have transient desaturations while in the IMU and the nurse reports the patient had choked on her saliva. Upon evaluation she has slight pursed breathing but reports her breathing is greatly improved. She denies cough or fever. At this time she is on 4 L of nasal cannula, we will continue her BiPAP settings of 20/13. We will treat pneumonia with cefepime and vancomycin and doxycycline, we will add metronidazole as well. Check sputum culture, Legionella antigen, pneumococcal antigen, mycoplasma PCR. A quad viral screen was negative. Blood cultures are pending. She has wheezing which is likely cardiac in nature, however at this time we will continue DuoNebs q.4 hours and these can be changed to p.r.n. if appropriate tomorrow. Unclear category of heart failure. At home she does take Coreg, torsemide 20 mg p.o. b.i.d. I gave an additional dose of Lasix and she has had some urine output with improved breathing. Continue Coreg, hold metolazone and torsemide. Continue with Lasix 20 mg IV b.i.d. She has an CRISTA or CKD, it is unclear, so we will monitor the trend. She has a chronic indwelling Wren catheter which was changed in the ER. Strict I/O, daily weight. Hemoglobin 6 0.5/6.6 on admission. 2 units were ordered, per gastroenterology society recommendations I have told the nurse to only give 1 unit. Hemoglobin has come up to 7.3. We will continue serial hemoglobin levels. Stool occult is positive. Will have GI consulted. The patient denies hemoptysis/hematemesis. ----- Patient wishes to be full code. She is a resident of assisted. Bed-bound. Chronic indwelling Wren catheter, change on 06/19/2025. SCDs only. NPO. Speech evaluation. Saline lock IV. Protonix 40 mg IV q.a.m. Strict intake/output, daily weights. BiPAP 20/13 at night and while sleeping. Titrate oxygen per protocol. Greater than 75 minutes spent on chart review, evaluation and discussions with patient, medical decision making. Hospitalist MIPS Advance Care Plan I have confirmed that the patient's Advanced Care Plan is present, code status is documented, or surrogate decision maker is listed in patient medical record.: Yes Medication Reconciliation I have utilized all available resources to obtain, update and review the patients current medications (includes all prescriptions, OTC, herbals, cannabis, and nutritional supplements).: Yes
[2025-06-19] MEDS: IPRATROPIUM 0.5 MG/ALBUTEROL SULFATE 2.5 MG AMPUL.NEB 3 ML INHALATION ×2 (22:07→23:58)
[2025-06-19] MEDS: metroNIDAZOLE 500 MG/ISO 100ML 500 MG/100 ML BAG 100 MG IVPB (22:15)
[2025-06-19 22:19] LABS: Troponin I 0.581 ng/mL (0.000-0.034)
[2025-06-20] VITALS (41 sets, daily range): BP systolic 104–140; BP diastolic 44–96; PULSE 66–100; RESP 12–29; TEMP 36.2–37; O2SAT 93–100
--- NOTE | 2025-06-20 | ECHO_ITS ---
Patient Info Name: Lourdes Goncalves Age: 60 years : 1965 Gender: Female Ht: 66 in Wt: 563 lbs BSA: 3.64 m2 HR: 67 bpm BP: 112 / 47 mmHg Heart Rhythm: Sinus Rhythm Technical Quality: Poor Exam Date: 06/20/2025 11:41 AM Patient Status: I Admit Date: 06/20/2025 Exam Type: CA echo dop color flow w con Complete two-dimensional, color flow and Doppler transthoracic echocardiogram is performed with contrast to opacify the left ventricle and to improve the deliniation of the left ventricle endocardial borders. Staff Referring Physician: Carlos Montes Radial Drill Press Operator For Plastic: Adonay Storm III Attending Provider: Carlos Montes Contrast/Agitated Saline Contrast/Ag. Saline: Definity Amount: 2.00 ml Administered By: Adonay Storm III Existing IV Access: Yes IV Access Condition: patent with no signs of infiltration Summary 1. Technically challenging exam because of obesity, definity contrast utilized. 2. Grossly normal left ventricular size with well-preserved systolic function. 3. Evidence of RV enlargement with RV hypokinesia. 4. Mildly sclerotic aortic valve which is not stenotic. 5. Mild mitral annular calcification. 6. Mild to moderate tricuspid regurgitation velocity suggests RV systolic pressure of 54 mm Hg. Left Ventricle Left ventricular chamber dimension is normal. Left ventricular systolic function is normal, estimated at 65-70. The left ventricular diastolic function is indeterminate. Right Ventricle Right ventricular chamber dimension is moderately enlarged. Right ventricular systolic function is reduced. Left Atria Left atrial chamber dimension is normal. Right Atria Right atrial chamber dimension is not well visualized. Aortic Valve The aortic valve is trileaflet. There is mild aortic valve sclerosis. Pulmonic Valve The pulmonic valve is not well visualized. Mitral Valve The mitral valve has normal leaflets. The mitral valve annulus is mildly calcified. Tricuspid Valve The tricuspid valve leaflets are not well visualized. There is mild tricuspid valve regurgitation. Moderate pulmonary hypertension, estimated pulmonary arterial systolic pressure is 54 mmHg. Pericardium/Pleural The pericardium appears normal. Aorta The aortic root size at the sinus of Valsalva is not well visualized. Left Ventricular Outflow Tract Name Value Normal LVOT 2D LVOT Diameter 2.3 cm LVOT Doppler LVOT Peak Velocity 119 cm/s LVOT Peak Gradient 6 mmHg LVOT Mean Gradient 3 mmHg LVOT VTI 29 cm LVOT VTI/AV VTI Ratio 0.6 LVOT Stroke Volume 120 ml LVOT CO 20.1 l/min LVOT CI 5.5 l/min/m2 Pulmonic Valve Name Value Normal PV Doppler PV Peak Velocity 121 cm/s PV Peak Gradient 6 mmHg PV Mean Gradient 3 mmHg Mitral Valve Name Value Normal MV Doppler MV Peak Gradient 8 mmHg MV Mean Gradient 3 mmHg MV Area (Cont Eq VTI) 3.0 cm2 MV Diastolic Function MV E Peak Velocity 160 cm/s MV A Peak Velocity 103 cm/s MV E/A 1.6 MV Decel Time (PW) 239 ms Tricuspid Valve Name Value Normal TV Regurgitation Doppler TR Peak Velocity 333 cm/s TR Peak Gradient 44 mmHg Estimated PAP/RSVP RA Pressure 10 mmHg <=5 PA Systolic Pressure 54 mmHg <36 RV Systolic Pressure 54 mmHg <36 TV Annular TDI TV Lateral Salima s' Velocity 11.1 cm/s >=9.5 Aortic Valve Name Value Normal AV Doppler AV Peak Velocity 200 cm/s AV Peak Gradient 16 mmHg AV Mean Gradient 9 mmHg AV VTI 45 cm AV Area (Cont Eq VTI) 2.7 cm2 >=3.0 AV Area (Cont Eq Bernardo) 2.5 cm2 AV DI (Bernardo) 0.60 AV Regurgitation 2D LVOT Area 4.1 cm2 Ventricles Name Value Normal LV Dimensions 2D/MM LVOT Diameter 2.3 cm Report Signatures
[2025-06-20] MEDS: DOXEPIN HCL 25 MG CAPSULE PO ×2 (00:27→19:55)
[2025-06-20] MEDS: MUPIROCIN 2% OINT 22 GM TUBE 1 APPLIC EACH NARE ×3 (01:18→22:07)
[2025-06-20 03:31] LABS: Alanine Aminotransferase 16 U/L (6-35); Albumin Level 3.2 g/dL (3.5-5.1); Alkaline Phosphatase 72 U/L (38-126); Aspartate Amino Transferase 45 U/L (14-36); Bilirubin,Total 0.7 mg/dL (0.2-1.3); Blood Urea Nitrogen 55 mg/dL (7-17); Calcium 8.0 mg/dL (8.4-10.2); Chloride 88 mmol/L (98-107); Estimated CRCL calculation 63 ml/min; Estimated Glomerular Filt Rate 27; Glucose 190 mg/dL (65-110); Magnesium 1.8 mg/dL (1.6-2.3); Potassium 3.5 mmol/L (3.4-5.0); Sodium 136 mmol/L (137-145); Total Protein 8.6 g/dL (6.3-8.2)
[2025-06-20 03:32] LABS: Carbon Dioxide > 40 mmol/L (22-30); Hematocrit 24.3 % (37.0-47.0); Immature Granulocyte Percent A 1.1 % (0-0.5); Lymphocytes Absolute Auto 0.67 K/mm3 (0.9-3.2); Mean Corpuscular HGB Conc 28.4 g/dl (32-36); Mean Corpuscular Hemoglobin 25.5 pg (26-34); Mean Corpuscular Volume 89.7 fl (80-100); Nucleated Red Blood Cells Absolute Auto 0.000 K/mm3 (0.0-0.012); Nucleated Red Blood Cells Perc 0.0 % (0.0-0.2); Platelet Count Result 138 k/mm3 (150-375); Red Blood Count 2.71 M/mm3 (4.2-5.4); White Blood Count 13.6 K/mm3 (4.5-10.0)
[2025-06-20 03:41] LABS: Hemoglobin 6.9 g/dL (12.0-15.0)
[2025-06-20 03:43] LABS: Anisocytosis 1+; Hypochromasia 1+; Schistocytes None Seen; Stomatocytes 1+
[2025-06-20 03:48] LABS: Troponin I 0.502 ng/mL (0.000-0.034)
[2025-06-20] MEDS: IPRATROPIUM 0.5 MG/ALBUTEROL SULFATE 2.5 MG AMPUL.NEB 3 ML INHALATION ×5 (04:03→20:24)
[2025-06-20] MEDS: SODIUM CHLORIDE 0.9% IV 250 ML 30 ML IV CONT (05:20)
[2025-06-20] MEDS: TUBING, BLOOD PLUM PUMP TUBING 1 EACH XX (05:35)
[2025-06-20] MEDS: CEFEPIME 2 GM in SODIUM CHLORIDE 0.9% IV 50 ML 100 ML IVPB ×3 (05:56→22:06)
[2025-06-20] MEDS: metroNIDAZOLE 500 MG/ISO 100ML 500 MG/100 ML BAG 100 MG IVPB ×3 (06:36→21:00)
[2025-06-20] MEDS: DOXYCYCLINE IV 100 MG in SODIUM CHLORIDE 0.9% IV 100 ML IVPB ×2 (08:36→19:56)
[2025-06-20] MEDS: VANCOMYCIN 1,500 MG/NS 500 ML 1,500 MG/500 ML BAG 250 MG IVPB (08:36)
[2025-06-20] MEDS: PANTOPRAZOLE SODIUM IV 40 MG VIAL IV PUSH (08:37)
[2025-06-20] MEDS: FUROSEMIDE INJ 40 MG/4 ML VIAL 20 MG IV PUSH ×2 (08:37→17:11)
--- NOTE | 2025-06-20 08:59 | P.PNIM_ITS ---
Progress Note: A&P Assessment and Plan (1) Pneumonia: Code(s): J18.9 - Pneumonia, unspecified organism Status: Acute (2) Acute dyspnea: Code(s): R06.00 - Dyspnea, unspecified Status: Acute (3) Anemia: Code(s): D64.9 - Anemia, unspecified Status: Acute (4) UTI (urinary tract infection): Code(s): N39.0 - Urinary tract infection, site not specified Status: Acute (5) Acute non-ST elevation myocardial infarction (NSTEMI): Code(s): I21.4 - Non-ST elevation (NSTEMI) myocardial infarction Status: Acute (6) Acute hypoxemic respiratory failure: Code(s): J96.01 - Acute respiratory failure with hypoxia Status: Acute (7) Acute exacerbation of chronic heart failure: Code(s): I50.9 - Heart failure, unspecified Status: Acute Plan 60-year-old female with class 3 obesity with BMI 91, bed-bound, chronic indwelling Wren catheter, CHF, obstructive disease on BiPAP during naps and sleep, chronic respiratory failure on 3 L nasal cannula, insulin-dependent diabetes mellitus. The patient presents to [facility] ER from skilled nursing where she is a resident via EMS with shortness of breath. In the ER she was placed on 4 L nasal cannula, she did have further but transient desaturations in the IMU. Blood pressure 130/48, heart rate 72, afebrile. Found to have a hemoglobin of 6.5 on admission, 2 units PRBC ordered. Stool guaiac positive. WBC 43594, platelets 140, INR 1.7, bicarb 40, BUN 51, serum creatinine 1.92, AST 45, AST 18, troponin 0.463, BNP 9900, albumin 3.3, procalcitonin 10.5, urinalysis indicative of infection, nasal MRSA PCR positive, quad viral screen negative. Two view chest x-ray demonstrates cardiomegaly with pulmonary vascular congestion, opacities in the left mid and lower lung zones wh ich could represent atelectasis and/or pneumonia, elevation of right hemidiaphragm. She was given cefepime, doxycycline, vancomycin as well and blood cultures were drawn. Acute on chronic hypoxic respiratory failure. Baseline 3 L nasal cannula BiPAP during naps and sleep. Chest x-ray with possible pneumonia left mid and lower lung zones. Started on vancomycin cefepime and doxycycline metronidazole. Urine antigens pending. Quad viral screen was negative. Blood culture pending. Continue DuoNebs. Nasal MRSA positive Possible pneumonia see above Congestive heart failure possible chest x-ray also reports pulmonary vascular congestion with cardiomegaly. Patient takes torsemide and Coreg at home. Extra Lasix given. Mild CRISTA versus CKD will monitor renal function with diuresis. Continue Coreg. Chronic indwelling Wren catheter which was changed in the ER. Strict I/O, daily weight. Anemia acute on chronic hemoglobin of 6.5 on admission status post 1 unit PRBC transfusion. Monitor serial hemoglobin. Stool occult blood is positive suggestive of GI bleed. GI has been consulted. On PPI. No prior levels are present. FOBT positive stool GI consulted. Anemia workup ordered. Deemed high risk for endoscopy. Elevated troponin with flat trend CRISTA versus CKD creatinine 1.9 on admission. Creatinine baseline about a month ago was 1.4 on review of records UTI continue current antibiotics Morbid obesity Bed-bound status Obstructive sleep apnea on BiPAP chronically at night and during naps at daytime Chronic respiratory failure on 3 L nasal cannula Insulin-dependent diabetes mellitus SSI. Adjust as needed. At home Lantus 20 b.i.d. Code status full code Subjective Date/time seen: 06/20/25 08:59 Interval history: Feels okay. She has been in the nursing facility since a month or so. She reports minimal cough no fever chills. Shortness of breath no chest pain. She states she has not been feeling well for past day or so with reported symptoms of generalized weakness Review of Systems Review of Systems: All systems reviewed & are unremarkable except as noted in HPI and below (Subjective) Exam Narrative: GENERAL: Morbidly obese, and in no acute distress. HEAD: Normocephalic, atraumatic. EYES: PERRLA and EOMI. CHEST: Diminished breath sounds bilaterally, No respiratory distress. HEART: Regular rate and rhythm. No murmur heard. Normal peripheral pulses. ABDOMEN: Soft, nontender, nondistended, normal active bowel sounds. : Guaiac-positive stool EXTREMITIES: Normal range of motion. No edema. SKIN: Warm, dry NEURO: No focal deficits. Alert and oriented x3. PSYCH: Normal mood and affect. Objective Data Vital Signs Vital Signs: Vital Signs - 24 hr 06/19/25 11:14 06/19/25 11:39 06/19/25 12:30 Temperature 98.4 F Pulse Rate 87 Respiratory Rate 22 H Blood Pressure 126/66 Pulse Oximetry 95 95 Oxygen Delivery Nasal Cannula Nasal Cannula Oxygen Flow Rate 4 4 06/19/25 16:10 06/19/25 18:00 06/19/25 18:10 Temperature 97.9 F Pulse Rate 87 72 74 Respiratory Rate 16 18 Blood Pressure 147/60 H 128/50 L Pulse Oximetry 96 100 Oxygen Delivery Oxygen Flow Rate 06/19/25 18:25 06/19/25 19:25 06/19/25 19:50 Temperature 98.1 F 98.1 F 97.7 F Pulse Rate 70 69 72 Respiratory Rate 20 24 H 24 H Blood Pressure 130/48 L 125/71 119/38 L Pulse Oximetry 100 100 100 Oxygen Delivery Oxygen Flow Rate 06/19/25 20:00 06/19/25 20:00 06/19/25 20:00 Temperature 97.7 F Pulse Rate 73 73 Respiratory Rate 16 Blood Pressure 138/57 L Pulse Oximetry 91 94 Oxygen Delivery Nasal Cannula Oxygen Flow Rate 4 06/19/25 20:22 06/19/25 20:46 06/19/25 22:00 Temperature 98 F Pulse Rate 72 68 Respiratory Rate 20 20 Blood Pressure 132/49 L Pulse Oximetry 91 89 L Oxygen Delivery High Flow Nasal Cannula Oxygen Flow Rate 5 06/19/25 22:10 06/19/25 22:15 06/19/25 22:26 Temperature Pulse Rate 70 70 Respiratory Rate 20 13 Blood Pressure Pulse Oximetry 98 Oxygen Delivery BiPAP BiPAP Oxygen Flow Rate 06/19/25 22:50 06/19/25 23:51 06/19/25 23:58 Temperature 97.7 F Pulse Rate 72 71 Respiratory Rate 16 18 21 H Blood Pressure 120/45 L Pulse Oximetry 92 Oxygen Delivery BiPAP Oxygen Flow Rate 06/19/25 23:59 06/20/25 00:00 06/20/25 00:00 Temperature Pulse Rate 71 71 Respiratory Rate Blood Pressure Pulse Oximetry 100 96 Oxygen Delivery BiPAP BiPAP Oxygen Flow Rate 06/20/25 00:05 06/20/25 00:14 06/20/25 02:00 Temperature Pulse Rate 98 100 69 Respiratory Rate 21 H 20 Blood Pressure Pulse Oximetry Oxygen Delivery Oxygen Flow Rate 06/20/25 04:00 06/20/25 04:00 06/20/25 04:00 Temperature 98.6 F Pulse Rate 68 67 Respiratory Rate 22 H Blood Pressure 129/50 L Pulse Oximetry 96 100 Oxygen Delivery BiPAP Oxygen Flow Rate 06/20/25 04:03 06/20/25 04:05 06/20/25 04:46 Temperature Pulse Rate 67 67 67 Respiratory Rate 20 Blood Pressure Pulse Oximetry 96 96 Oxygen Delivery BiPAP BiPAP Oxygen Flow Rate 06/20/25 05:26 06/20/25 05:43 06/20/25 06:00 Temperature 98.2 F 98.2 F Pulse Rate 67 67 71 Respiratory Rate 26 H 26 H Blood Pressure 140/96 H 112/47 L Pulse Oximetry 100 98 Oxygen Delivery Oxygen Flow Rate 06/20/25 06:43 06/20/25 07:43 06/20/25 07:45 Temperature 98.2 F 97.8 F 97.8 F Pulse Rate 70 66 66 Respiratory Rate 24 H 13 13 Blood Pressure 125/52 L 119/52 L 119/52 L Pulse Oximetry 98 100 100 Oxygen Delivery Oxygen Flow Rate 06/20/25 07:55 06/20/25 08:00 06/20/25 08:01 Temperature 98.1 F Pulse Rate 66 66 68 Respiratory Rate 12 20 14 Blood Pressure 118/44 L Pulse Oximetry 100 99 Oxygen Delivery BiPAP Oxygen Flow Rate 06/20/25 08:08 Temperature Pulse Rate 67 Respiratory Rate 20 Blood Pressure Pulse Oximetry Oxygen Delivery Oxygen Flow Rate Intake/Output Intake/Output: Intake & Output 06/17/25 06/18/25 06/19/25 06/20/25 23:59 23:59 23:59 23:59 Intake Total 650 350 Output Total 850 Balance 650 -500 Meds/Results Medications: Active Medications Generic Name Dose Route Start Last Admin Trade Name Freq PRN Reason Stop Dose Admin Acetaminophen 650 mg 06/19/25 15:05 Acetaminophen 325 Mg Tablet PO Q4H PRN Mild Pain (1-3) or Fever Albuterol/Ipratropium 3 ml 06/19/25 21:10 06/20/25 08:00 Ipratropium 0.5 Mg/Albuterol Sulfate 2.5 Mg Ampul.Neb 3 Ml INHALATION 3 ml Q4HRT HIPOLITO Administration Carvedilol 12.5 mg 06/20/25 09:00 Carvedilol 12.5 Mg Tablet PO Q12HR HIPOLITO Dextrose 12.5 gm 06/19/25 22:22 Dextrose 50% 25 Gm/50 Ml Syringe IV PUSH PRN PRN Hypoglycemia Protocol Doxepin HCl 25 mg 06/19/25 22:30 06/20/25 00:27 Doxepin Hcl 25 Mg Capsule PO 25 mg HS HIPOLITO Administration Fluoxetine HCl 40 mg 06/20/25 09:00 Fluoxetine Hcl 20 Mg Capsule PO DAILY [facility]IPOL[facility]O Furosemide 20 mg 06/20/25 09:00 06/20/25 08:37 Furosemide Inj 40 Mg/4 Ml Vial IV PUSH 20 mg BID HIPOLITO Administration Glucose 15 gm 06/19/25 22:22 Glucose Oral Gel 15 Gm Of Glucse In 37.5 Gm Tube PO PRN PRN Hypoglycemia Protocol Vancomycin HCl 1,500 mg in 500 mls @ 250 mls/hr 06/20/25 09:00 06/20/25 08:36 Vancomycin 1,500 Mg/Ns 500 Ml IVPB 250 mls/hr Q18H HIPOLITO Administration Cefepime HCl 2 gm/ Sodium 50 mls @ 100 mls/hr 06/19/25 22:00 06/20/25 05:56 Chloride IVPB 100 mls/hr Q8HR HIPOL[facility]O Administration Metronidazole 500 mg in 100 mls @ 100 mls/hr 06/19/25 22:00 06/20/25 06:36 Flagyl 500 Mg/Iso Soln 100 Ml IVPB 100 mls/hr Q8HR [facility]O Administration Doxycycline Hyclate 100 mg/ 100 mls @ 100 mls/hr 06/19/25 21:00 06/20/25 08:36 Sodium Chloride IVPB 100 mls/hr Q12HR [facility]O Administration Dextrose 1,000 mls @ 100 mls/hr 06/19/25 22:22 Dextrose 5% 1,000 Ml IVPB PRN PRN Hypoglycemia Protocol Sodium Chloride 250 mls @ 30 mls/hr 06/20/25 04:45 06/20/25 05:20 Normal Saline Iv IV CONT 06/20/25 13:04 30 mls/hr .Q8H20M ONE Administration Insulin Aspart 2 - 5 units 06/20/25 00:00 06/20/25 05:57 Insulin Aspart (*Bkc) 100 Units/Ml SUB-Q Not Given Q6HR HIPOLITO Protocol Miscellaneous Information 1 each 06/19/25 22:33 Central Supply Item Tolnaftate (Sub For Nystatin Powder) XX 06/20/25 22:32 PRN PRN Informational Mupirocin 1 applic 06/19/25 21:00 06/20/25 08:37 Mupirocin 2% Oint 22 Gm Tube EACH NARE 06/24/25 09:01 1 applic Q12HR HIPOLITO Administration Ondansetron HCl 4 mg 06/19/25 15:05 06/19/25 20:36 Ondansetron Inj 4 Mg/2 Ml Vial IV PUSH 4 mg Q4H PRN Administration Nausea Pantoprazole Sodium 40 mg 06/20/25 09:00 06/20/25 08:37 Pantoprazole Sodium Iv 40 Mg Vial IV PUSH 40 mg QAM HIPOLITO Administration Perflutren Lipid Microsphere 0 ml 06/19/25 22:30 Perflutren Lipid Microspheres 1.5 Ml Vial Diluted To 10 Ml Total Volume IV PUSH 06/22/25 22:30 ONCE PRN adequate visualization Protocol Radiology Results: ITS Impressions Chest X-Ray 06/19/25 12:09 IMPRESSION: 1. Cardiomegaly with pulmonary vascular congestion. 2. Opacities in the left mid and lower lung zones which could represent atelectasis and/or pneumonia. 3. Elevation of the right hemidiaphragm. Labs Labs: Laboratory Results - last 24 hr 06/19/25 06/19/25 06/19/25 11:36 13:57 13:58 WBC 14.1 H RBC 2.56 L Hgb 6.5 L* Hct 22.4 L MCV 87.5 MCH 25.4 L MCHC 29.0 L RDW 15.6 H Plt Count 140 L MPV 9.9 Immature Gran % (Auto) 0.6 H Neut % (Auto) 89.0 H Lymph % (Auto) 6.4 L [place] % (Auto) 3.5 Eos % (Auto) 0.1 Baso % (Auto) 0.4 Lymph # (Auto) 0.90 [place] # (Auto) 0.5 Eos # (Auto) 0.0 Baso # (Auto) 0.1 Abs Immat Gran (auto) 0.09 H Absolute Neuts (auto) 12.6 H Absolute Nucleated RBC 0.000 Band Neutrophils % Not Reportable Nucleated RBC % 0.0 Platelet Estimate Adequate Hypochromasia Occasional Anisocytosis Occasional Stomatocytes Schistocytes None seen PT 19.8 H INR 1.7 APTT 32.7 Sodium 137 Potassium 3.7 Chloride 85 L Carbon Dioxide > 40 H Anion Gap BUN 51 H Creatinine 1.92 H Estim Creat Clear Calc 63 Estimated GFR 27 L Glucose 150 H POC Capillary Glucose Lactic Acid 1.3 Calcium 8.1 L Magnesium 1.7 1.7 Total Bilirubin 0.9 AST 45 H ALT 18 Alkaline Phosphatase 82 Troponin I 0.463 H* NT-Pro-B Natriuret Pep 9940 H Total Protein 8.8 H Albumin 3.3 L Procalcitonin 10.5 Urine Color Yellow Urine Appearance Turbid H Urine pH 5.5 Ur Specific Outing 1.014 Urine Protein 2+ H Urine Glucose (UA) Negative Urine Ketones Negative Ur Blood (Man) 3+ H Urine Nitrate Negative Urine Bilirubin Negative Urine Urobilinogen 1.0 Add Ur Microanalysis Reviewed Leukocyte Esterase Rfl 3+ H Urine RBC 51-100 H Urine WBC >100 H Ur Squamous Epith Cells Occasional Urine Bacteria 1+ H Urine Casts >20 Hyaline Casts Present Nasal MRSA (PCR) Detected A* Influenza A (RT-PCR) Negative Influenza B (RT-PCR) Negative RSV (RT-PCR) Negative SARS-CoV-2 RNA (RT-PCR) Negative Urine Pneumococcal Ag Blood Type A Positive Antibody Screen Negative Crossmatch See Detail 06/19/25 06/19/25 06/19/25 17:14 21:39 23:44 WBC RBC Hgb 6.6 L* 7.3 L Hct 23.1 L 25.7 L MCV MCH MCHC RDW Plt Count MPV Immature Gran % (Auto) Neut % (Auto) Lymph % (Auto) [place] % (Auto) Eos % (Auto) Baso % (Auto) Lymph # (Auto) [place] # (Auto) Eos # (Auto) Baso # (Auto) Abs Immat Gran (auto) Absolute Neuts (auto) Absolute Nucleated RBC Band Neutrophils % Nucleated RBC % Platelet Estimate Hypochromasia Anisocytosis Stomatocytes Schistocytes PT INR APTT Sodium 136 L Potassium 3.6 Chloride 87 L Carbon Dioxide > 40 H Anion Gap BUN 55 H Creatinine 1.72 H Estim Creat Clear Calc 70 Estimated GFR 30 L Glucose 186 H POC Capillary Glucose 166 H Lactic Acid Calcium 7.9 L Magnesium Total Bilirubin AST ALT Alkaline Phosphatase Troponin I 0.581 H* NT-Pro-B Natriuret Pep Total Protein Albumin Procalcitonin Urine Color Urine Appearance Urine pH Ur Specific Outing Urine Protein Urine Glucose (UA) Urine Ketones Ur Blood (Man) Urine Nitrate Urine Bilirubin Urine Urobilinogen Add Ur Microanalysis Leukocyte Esterase Rfl Urine RBC Urine WBC Ur Squamous Epith Cells Urine Bacteria Urine Casts Hyaline Casts Nasal MRSA (PCR) Influenza A (RT-PCR) Influenza B (RT-PCR) RSV (RT-PCR) SARS-CoV-2 RNA (RT-PCR) Urine Pneumococcal Ag Blood Type Antibody Screen Crossmatch 06/20/25 06/20/25 03:11 03:59 WBC 13.6 H RBC 2.71 L Hgb 6.9 L* Hct 24.3 L MCV 89.7 MCH 25.5 L MCHC 28.4 L RDW 15.6 H Plt Count 138 L MPV 10.1 Immature Gran % (Auto) 1.1 H Neut % (Auto) 89.8 H Lymph % (Auto) 4.9 L [place] % (Auto) 3.5 Eos % (Auto) 0.3 Baso % (Auto) 0.4 Lymph # (Auto) 0.67 L [place] # (Auto) 0.5 Eos # (Auto) 0.0 Baso # (Auto) 0.1 Abs Immat Gran (auto) 0.15 H Absolute Neuts (auto) 12.2 H Absolute Nucleated RBC 0.000 Band Neutrophils % Not Reportable Nucleated RBC % 0.0 Platelet Estimate Decreased Hypochromasia 1+ Anisocytosis 1+ Stomatocytes 1+ Schistocytes None seen PT INR APTT Sodium 136 L Potassium 3.5 Chloride 88 L Carbon Dioxide > 40 H Anion Gap BUN 55 H Creatinine 1.93 H Estim Creat Clear Calc 63 Estimated GFR 27 L Glucose 190 H POC Capillary Glucose Lactic Acid Calcium 8.0 L Magnesium 1.8 Total Bilirubin 0.7 AST 45 H ALT 16 Alkaline Phosphatase 72 Troponin I 0.502 H* NT-Pro-B Natriuret Pep Total Protein 8.6 H Albumin 3.2 L Procalcitonin Urine Color Urine Appearance Urine pH Ur Specific Outing Urine Protein Urine Glucose (UA) Urine Ketones Ur Blood (Man) Urine Nitrate Urine Bilirubin Urine Urobilinogen Add Ur Microanalysis Leukocyte Esterase Rfl Urine RBC Urine WBC Ur Squamous Epith Cells Urine Bacteria Urine Casts Hyaline Casts Nasal MRSA (PCR) Influenza A (RT-PCR) Influenza B (RT-PCR) RSV (RT-PCR) SARS-CoV-2 RNA (RT-PCR) Urine Pneumococcal Ag Cancelled Blood Type Antibody Screen Crossmatch
--- NOTE | 2025-06-20 09:07 | WPDGICN ---
Assessment and Plan Assessment and plan (1) Anemia: Qualifiers: Anemia type: unspecified type Qualified Code(s): D64.9 - Anemia, unspecified Code(s): D64.9 - Anemia, unspecified Status: Acute (2) Heme positive stool: Code(s): R19.5 - Other fecal abnormalities Status: Acute Plan 1. Normocytic anemia/heme-positive stools: Patient states she had a colonoscopy but was unable to say when it was performed but she believes it was more than years ago, results unknown. She has never had an EGD. Patient admitted for pneumonia, anemia, UTI, and acute on chronic respiratory failure. Patient was also noted to have 2 positive troponins x2. Patient bedbound with BMI of 91. Patient with oxygen dependence on 4 L per nasal cannula. Family history includes father with gastric ulcer and paternal grandfather with stomach cancer patient takes 1-2 naproxen daily along with aspirin 81 mg daily. Denies any GI complaints. She states she is typically having 1-2 bowel movements daily that vary from formed to soft. Denies any hematemesis, hematochezia, or melena. On admission Hgb 6.5. Patient has received 2 units of PRBCs and most recent H&H show HGB 7.5, HCT 36. WBC is 14, MCV 90, platelets 138. No signs of active GI bleeding. Given patient's acute issues and comorbidities patient is a very high risk endoscopy candidate. No indication for emergent endoscopic evaluation with no signs of active bleeding. Patient agrees to a more observational approach to care at this time Primary care team to continue monitoring H&H and transfuse as needed to keep HGB > 7 Continue PPI Care with NSAIDs, aspirin, and anticoagulants Anemia workup ordered Thank you very much for allowing me to share in the care of this very nice patient. This report may have been done utilizing a voice recognition system. Attempts have been made to correct errors. However, there may be uncorrected grammatical, spelling, and recognition errors present. GI Consult Note Consult date/time: 06/20/25 09:07 Reason for consult: Severe anemia and heme positive stools HPI: Lourdes Goncalves is a 60 year old female with history of chronic respiratory failure with oxygen dependence on 4 L, COPD, CHF, class 3 obesity, bed-bound, chronic indwelling Wren, and diabetes. She presented to the ER yesterday from [facility] with complaints of shortness of breath and was satting 75% on room air. Patient was admitted for pneumonia, anemia, UTI and acute on chronic respiratory failure. GI has been consulted for severe anemia and heme-positive stools. During today's visit the patient denies any GI complaints. She denies any abdominal pain, nausea, vomiting, bloating, odynophagia, dysphagia, reflux, regurgitation, early satiety, appetite loss, or unexplained weight loss. She typically has 1-2 bowel movements daily that vary from formed to soft. Denies diarrhea, constipation, hematochezia, or melena. Patient states that she takes 1-2 naproxen daily along with aspirin 81 mg daily, denies any anticoagulant use. She is a nondrinker nonsmoker and denies marijuana use. Patient's father with history of stomach ulcers and paternal grandfather with stomach cancer. ENDOSCOPY HISTORY: EGD: Patient has never had an EGD COLONOSCOPY: Patient states that she had a colonoscopy in the past that she knows was > 5 years ago, results unknown LABS AND STOOL STUDIES: Labs 06/20/2025: Sodium 136, potassium 3.5, BUN 55, creatinine 1.93, GFR 27, calcium 8.0 WBC 14, Hgb 7, Hct 24, MCV 90, platelets 138 Total bilirubin 0.7, AST 45, ALT 16, Alkaline Phos 72, albumin 3.2 Troponin positive x2 IMAGING: Chest Xray 06/19/2025: IMPRESSION: 1. Cardiomegaly with pulmonary vascular congestion. 2. Opacities in the left mid and lower lung zones which could represent atelectasis and/or pneumonia. 3. Elevation of the right hemidiaphragm. Review of Systems Constitutional: Constitutional: Reports as per HPI and Reports fatigue ENT: Reports as per HPI Cardiovascular: Cardiovascular: Reports as per HPI, Denies chest pain, Reports pedal edema, Reports leg edema and Reports dyspnea Respiratory: Respiratory: Denies cough and Reports dyspnea Gastrointestinal: Gastrointestinal: Reports as per HPI Genitourinary: Comments: Indwelling Wren catheterization Musculoskeletal: Musculoskeletal: Reports as per HPI Integumentary/Breasts: Skin/Breast: Reports as per HPI Psychiatric: Psychiatric: Reports as per HPI Endocrine: Endocrine: Reports no additional endocrine complaints Hematologic/Lymphatic: Hematologic/Lymphatic: Reports no additional hematologic/lymphatic complaints [facility] Family History Family History Mother Diabetes mellitus Cancer Hypertension Father Diabetes mellitus CKD (chronic kidney disease) Social History Social History Smoking status: Never smoker Alcohol intake: never Substance use: never Lack of Transportation: YES Lack of Food: Never True Current Housing: I Have Housing Concerned About Future Housing: YES Difficulty Paying Gas/Electric Bills: No Difficulty Paying for Meds: No Currently Unemployed: No Education: Trade/Vocational Certificate Difficulty w/ Childcare or Family Care: No Spiritual care concerns: No Meds Home Medications and Allergies Home Medications ?Medication ?Instructions ?Recorded ?Confirmed ?Type albuterol sulfate 90 mcg/actuation 2 puff inhalation Q4H PRN 06/19/25 06/19/25 History aerosol inhaler shortness of breath or wheezing alprazolam 0.25 mg tablet 0.25 mg PO BID PRN anxiety 06/19/25 06/19/25 History aspirin 81 mg chewable tablet 81 mg PO DAILY 06/19/25 06/19/25 History baclofen 10 mg tablet 10 mg PO BID 06/19/25 06/19/25 History carvedilol 12.5 mg tablet 12.5 mg PO BID 06/19/25 06/19/25 History cephalexin 500 mg capsule 500 mg PO QID 06/19/25 06/19/25 History doxepin 25 mg capsule 25 mg PO HS 06/19/25 06/19/25 History fluconazole 100 mg tablet 100 mg PO DAILY 06/19/25 06/19/25 History fluoxetine 40 mg capsule 40 mg PO DAILY 06/19/25 06/19/25 History gabapentin 400 mg capsule 400 mg PO HS 06/19/25 06/19/25 History glucagon 1 mg solution for 1 mg subcut ONCE PRN hypoglycemia 06/19/25 06/19/25 History injection (Glucagon Emergency Kit) hydrocodone 5 mg-acetaminophen 325 1 tablet PO Q6H PRN pain 06/19/25 06/19/25 History mg tablet insulin glargine-yfgn 100 unit/mL 20 unit subcut BID 06/19/25 06/19/25 History (3 mL) subcutaneous pen insulin lispro 100 unit/mL 6 unit subcut AC 06/19/25 06/19/25 History subcutaneous solution metolazone 2.5 mg tablet 2.5 mg PO DAILY 06/19/25 06/19/25 History nystatin 100,000 unit/gram topical 1 applic topical BID 06/19/25 06/19/25 History powder rosuvastatin 20 mg tablet 20 mg PO HS 06/19/25 06/19/25 History torsemide 20 mg tablet 20 mg PO BID 06/19/25 06/19/25 History Allergies Allergy/AdvReac Type Severity Reaction Status Date / Time clarithromycin Allergy Mild Diarrhea Verified 06/19/25 17:02 levofloxacin Allergy Mild Rash Verified 06/19/25 17:02 Penicillins Allergy Unknown Rash Verified 06/19/25 17:02 iron (From Venofer) AdvReac Severe Anaphylactic Verified 06/19/25 17:02 Shock Vital Signs Vital Signs - 24 hr 06/19/25 11:14 06/19/25 11:39 06/19/25 12:30 Temperature 98.4 F Pulse Rate 87 Respiratory Rate 22 H Blood Pressure 126/66 Pulse Oximetry 95 95 Oxygen Delivery Nasal Cannula Nasal Cannula Oxygen Flow Rate 4 4 06/19/25 16:10 06/19/25 18:00 06/19/25 18:10 Temperature 97.9 F Pulse Rate 87 72 74 Respiratory Rate 16 18 Blood Pressure 147/60 H 128/50 L Pulse Oximetry 96 100 Oxygen Delivery Oxygen Flow Rate 06/19/25 18:25 06/19/25 19:25 06/19/25 19:50 Temperature 98.1 F 98.1 F 97.7 F Pulse Rate 70 69 72 Respiratory Rate 20 24 H 24 H Blood Pressure 130/48 L 125/71 119/38 L Pulse Oximetry 100 100 100 Oxygen Delivery Oxygen Flow Rate 06/19/25 20:00 06/19/25 20:00 06/19/25 20:00 Temperature 97.7 F Pulse Rate 73 73 Respiratory Rate 16 Blood Pressure 138/57 L Pulse Oximetry 91 94 Oxygen Delivery Nasal Cannula Oxygen Flow Rate 4 06/19/25 20:22 06/19/25 20:46 06/19/25 22:00 Temperature 98 F Pulse Rate 72 68 Respiratory Rate 20 20 Blood Pressure 132/49 L Pulse Oximetry 91 89 L Oxygen Delivery High Flow Nasal Cannula Oxygen Flow Rate 5 06/19/25 22:10 06/19/25 22:15 06/19/25 22:26 Temperature Pulse Rate 70 70 Respiratory Rate 20 13 Blood Pressure Pulse Oximetry 98 Oxygen Delivery BiPAP BiPAP Oxygen Flow Rate 06/19/25 22:50 06/19/25 23:51 06/19/25 23:58 Temperature 97.7 F Pulse Rate 72 71 Respiratory Rate 16 18 21 H Blood Pressure 120/45 L Pulse Oximetry 92 Oxygen Delivery BiPAP Oxygen Flow Rate 06/19/25 23:59 06/20/25 00:00 06/20/25 00:00 Temperature Pulse Rate 71 71 Respiratory Rate Blood Pressure Pulse Oximetry 100 96 Oxygen Delivery BiPAP BiPAP Oxygen Flow Rate 06/20/25 00:05 06/20/25 00:14 06/20/25 02:00 Temperature Pulse Rate 98 100 69 Respiratory Rate 21 H 20 Blood Pressure Pulse Oximetry Oxygen Delivery Oxygen Flow Rate 06/20/25 04:00 06/20/25 04:00 06/20/25 04:00 Temperature 98.6 F Pulse Rate 68 67 Respiratory Rate 22 H Blood Pressure 129/50 L Pulse Oximetry 96 100 Oxygen Delivery BiPAP Oxygen Flow Rate 06/20/25 04:03 06/20/25 04:05 06/20/25 04:46 Temperature Pulse Rate 67 67 67 Respiratory Rate 20 Blood Pressure Pulse Oximetry 96 96 Oxygen Delivery BiPAP BiPAP Oxygen Flow Rate 06/20/25 05:26 06/20/25 05:43 06/20/25 06:00 Temperature 98.2 F 98.2 F Pulse Rate 67 67 71 Respiratory Rate 26 H 26 H Blood Pressure 140/96 H 112/47 L Pulse Oximetry 100 98 Oxygen Delivery Oxygen Flow Rate 06/20/25 06:43 06/20/25 07:43 06/20/25 07:45 Temperature 98.2 F 97.8 F 97.8 F Pulse Rate 70 66 66 Respiratory Rate 24 H 13 13 Blood Pressure 125/52 L 119/52 L 119/52 L Pulse Oximetry 98 100 100 Oxygen Delivery Oxygen Flow Rate 06/20/25 07:55 06/20/25 08:00 06/20/25 08:01 Temperature 98.1 F Pulse Rate 66 66 68 Respiratory Rate 12 20 14 Blood Pressure 118/44 L Pulse Oximetry 100 99 Oxygen Delivery BiPAP Oxygen Flow Rate 06/20/25 08:08 Temperature Pulse Rate 67 Respiratory Rate 20 Blood Pressure Pulse Oximetry Oxygen Delivery Oxygen Flow Rate Exam Const: General: cooperative, comfortable, no acute distress and well developed Nutritional Appearance: obese Orientation/consciousness: oriented to person, oriented to place, oriented to time and patient oriented x3 HENMT: Head: normal to inspection, normocephalic and atraumatic Mouth: Yes Normal oral and palatal mucosa present and Yes moist mucous membranes Eyes: General: appearance normal, both eyes and all related structures Conjunctivae: conjunctivae normal Sclera: sclerae normal Pupils: Equal, round and reactive pupils present Neck: Neck: normal visual inspection Chest: Chest palpation & inspection: normal inspection of the chest Resp: Effort & Inspection: normal respiratory effort and able to speak in complete sentences Auscultation: diminished lung sounds Cardio: Jugular venous distension: no JVD Rate: regular rate Rhythm: regular rhythm Heart sounds: S1 normal heart sound present and S2 normal heart sound present GI: Inspection: distended GI Palp: Yes Soft to palpation (large abdomen and large pannus), No Tenderness to palpation present (GI), No Guarding due to palpation present (GI) and Yes No hepatosplenomegaly present Auscultation: normal bowel sounds Rectal Exam: deferred Urinary Catheter: Urinary Catheter: patent and draining Skin: General skin exam: normal color and no rashes or lesions noted Wounds: wounds noted Other: lower legs Neuro: General: oriented to person, oriented to place, oriented to time and patient oriented x3 Cranial nerves: Yes Equal, round and reactive pupils present Speech: normal speech Extrem: General: edema and pedal edema Psych: Appearance: grossly normal and well kempt Affect: normal affect Results Labs 06/20/25 09:32 06/20/25 03:11 Labs: Short CBC 06/19/25 06/19/25 06/19/25 Range/Units 11:36 17:14 21:39 WBC 14.1 H (4.5-10.0) K/mm3 Hgb 6.5 L* 6.6 L* 7.3 L (12.0-15.0) g/dL Hct 22.4 L 23.1 L 25.7 L (37.0-47.0) % Plt Count 140 L (150-375) k/mm3 06/20/25 Range/Units 03:11 WBC 13.6 H (4.5-10.0) K/mm3 Hgb 6.9 L* (12.0-15.0) g/dL Hct 24.3 L (37.0-47.0) % Plt Count 138 L (150-375) k/mm3 BMP 06/19/25 06/19/25 06/20/25 11:36 21:39 03:11 Sodium 137 136 L 136 L Potassium 3.7 3.6 3.5 Chloride 85 L 87 L 88 L Carbon Dioxide > 40 H > 40 H > 40 H BUN 51 H 55 H 55 H Creatinine 1.92 H 1.72 H 1.93 H Glucose 150 H 186 H 190 H Calcium 8.1 L 7.9 L 8.0 L Cardiac Enzymes 06/19/25 06/19/25 06/20/25 Range/Units 11:36 21:39 03:11 Troponin I 0.463 H* 0.581 H* 0.502 H* (0.000-0.034) ng/mL Liver Function 06/19/25 06/20/25 Range/Units 11:36 03:11 Total Bilirubin 0.9 0.7 (0.2-1.3) mg/dL AST 45 H 45 H (14-36) U/L ALT 18 16 (6-35) U/L Alkaline Phosphatase 82 72 (38-126) U/L Albumin 3.3 L 3.2 L (3.5-5.1) g/dL Urine 06/19/25 Range/Units 13:58 Urine Color Yellow (Yellow) Urine Appearance Turbid H (Clear) Urine pH 5.5 (5.0-9.0) Ur Specific [place] 1.014 (1.001-1.035) Urine Protein 2+ H (Negative) mg/dL Urine Glucose (UA) Negative (Negative) mg/dL
[2025-06-20 09:42] LABS: Hematocrit 25.7 % (37.0-47.0); Hemoglobin 7.5 g/dL (12.0-15.0)
--- NOTE | 2025-06-20 09:42 | PM.CNCAR ---
Assessment and Plan Assessment and plan (1) Acute exacerbation of chronic heart failure: Code(s): I50.9 - Heart failure, unspecified Status: Acute (2) Acute non-ST elevation myocardial infarction (NSTEMI): Code(s): I21.4 - Non-ST elevation (NSTEMI) myocardial infarction Status: Acute (3) UTI (urinary tract infection): Code(s): N39.0 - Urinary tract infection, site not specified Status: Acute (4) Anemia: Code(s): D64.9 - Anemia, unspecified Status: Acute (5) Acute hypoxemic respiratory failure: Code(s): J96.01 - Acute respiratory failure with hypoxia Status: Acute (6) Pneumonia: Code(s): J18.9 - Pneumonia, unspecified organism Status: Acute Plan Elevated troponin. Flat at 0.581 and 0.502-most likely represent demand ischemia in setting of hypoxemia and anemia. EKG no acute ST/T wave changes. She had MPI at OSH 10/19/24 per [facility] review that demonstrated no obvious ischemia. Will update echo to look for any new LV dysfunction or WMA. Continue rosuvastatin 20 mg daily and coreg 12.5 mg BID. No ischemic w/u planned at this time CHF-acute on chronic diastolic HF. Echo at OSH showed EF of 60% with grade III diastolic dysfunction, mild MR and mild TR. On admission her pBNP was 9940 and her CXR demonstrated cardiomegaly with pulmonary vascular congestion. Will continue on IV lasix BID at this time monitoring renal function closely. Will need accurate intake and output. A repeat echo is pending to evaluation for any new LV dysfunction. Pneumonia/UTI-antibiotic therapy as per primary team CRISTA-appears baseline Cr. is around 1 per OSH EPIC review. Will monitor closely with diuresis. Anemia with Hgb of 6.6 on admission-GI is following given anemia and occult positive stool. Will await further recommendation Acute hypoxic respiratory failure-most likely secondary to obesity hypoventilation syndrome compounded by pneumonia. Continue O2 support. BIPAP for all sleep Chronic lymphedema of bilateral LE. Reports edema more significant than normal. will monitor with diuresis. May benefit from compression AMANDA-BIPAP for all sleep Morbid Obesity and bed bound History of Present Illness History of Present Illness Consult date/time: 06/20/25 09:42 Requesting physician: Carlos Montes MD Consult reason: Other (elevated troponin ) Reason For Visit: pneumonia,anemia,nstemi,gi bleed Narrative: Lourdes Goncalves is a 60 y.o. female with a PMH of COPD, AMANDA, HTN, CHF, DM and morbid obesity who presented to the ER from her nursing facility with reports of weakness and shortness of breath. According to the patient she was at [facility] in [place] with similar complaints of weakness and was discharged to a assisted here that was able to accomadate her weight. While there she continued to feel weak and unwell. She experienced shortness of breath and increased lower extremity edema. She was noted to be hypoxic with oxygen saturation in 70s despite home O2. She was transferred to the ER for further evaluation. In the ER patient noted to be anemic and to have pneumonia. She also had elevated troponin for which we were consulted. She denies any previous coronary artery disease and no reports of chest pain or pressure at this time. Review of Systems Review of Systems: All systems reviewed & are unremarkable except as noted in HPI and below PMFSH Family History Family History Mother Diabetes mellitus Cancer Hypertension Father Diabetes mellitus CKD (chronic kidney disease) Social History Social History Smoking status: Never smoker Alcohol intake: never Substance use: never Lack of Transportation: YES Lack of Food: Never True Current Housing: I Have Housing Concerned About Future Housing: YES Difficulty Paying Gas/Electric Bills: No Difficulty Paying for Meds: No Currently Unemployed: No Education: Trade/Vocational Certificate Difficulty w/ Childcare or Family Care: No Spiritual care concerns: No Meds Home Medications and Allergies Home Medications ?Medication ?Instructions ?Recorded ?Confirmed ?Type albuterol sulfate 90 mcg/actuation 2 puff inhalation Q4H PRN 06/19/25 06/19/25 History aerosol inhaler shortness of breath or wheezing alprazolam 0.25 mg tablet 0.25 mg PO BID PRN anxiety 06/19/25 06/19/25 History aspirin 81 mg chewable tablet 81 mg PO DAILY 06/19/25 06/19/25 History baclofen 10 mg tablet 10 mg PO BID 06/19/25 06/19/25 History carvedilol 12.5 mg tablet 12.5 mg PO BID 06/19/25 06/19/25 History cephalexin 500 mg capsule 500 mg PO QID 06/19/25 06/19/25 History doxepin 25 mg capsule 25 mg PO HS 06/19/25 06/19/25 History fluconazole 100 mg tablet 100 mg PO DAILY 06/19/25 06/19/25 History fluoxetine 40 mg capsule 40 mg PO DAILY 06/19/25 06/19/25 History gabapentin 400 mg capsule 400 mg PO HS 06/19/25 06/19/25 History glucagon 1 mg solution for 1 mg subcut ONCE PRN hypoglycemia 06/19/25 06/19/25 History injection (Glucagon Emergency Kit) hydrocodone 5 mg-acetaminophen 325 1 tablet PO Q6H PRN pain 06/19/25 06/19/25 History mg tablet insulin glargine-yfgn 100 unit/mL 20 unit subcut BID 06/19/25 06/19/25 History (3 mL) subcutaneous pen insulin lispro 100 unit/mL 6 unit subcut AC 06/19/25 06/19/25 History subcutaneous solution metolazone 2.5 mg tablet 2.5 mg PO DAILY 06/19/25 06/19/25 History nystatin 100,000 unit/gram topical 1 applic topical BID 06/19/25 06/19/25 History powder rosuvastatin 20 mg tablet 20 mg PO HS 06/19/25 06/19/25 History torsemide 20 mg tablet 20 mg PO BID 06/19/25 06/19/25 History Allergies Allergy/AdvReac Type Severity Reaction Status Date / Time clarithromycin Allergy Mild Diarrhea Verified 06/19/25 17:02 levofloxacin Allergy Mild Rash Verified 06/19/25 17:02 Penicillins Allergy Unknown Rash Verified 06/19/25 17:02 iron (From Venofer) AdvReac Severe Anaphylactic Verified 06/19/25 17:02 Shock Vital Signs Vital Signs - 24 hr 06/19/25 11:14 06/19/25 11:39 06/19/25 12:30 Temperature 36.9 C Pulse Rate 87 Respiratory Rate 22 H Blood Pressure 126/66 Pulse Oximetry 95 95 Oxygen Delivery Nasal Cannula Nasal Cannula Oxygen Flow Rate 4 4 06/19/25 16:10 06/19/25 18:00 06/19/25 18:10 Temperature 36.6 C Pulse Rate 87 72 74 Respiratory Rate 16 18 Blood Pressure 147/60 H 128/50 L Pulse Oximetry 96 100 Oxygen Delivery Oxygen Flow Rate 06/19/25 18:25 06/19/25 19:25 06/19/25 19:50 Temperature 36.7 C 36.7 C 36.5 C Pulse Rate 70 69 72 Respiratory Rate 20 24 H 24 H Blood Pressure 130/48 L 125/71 119/38 L Pulse Oximetry 100 100 100 Oxygen Delivery Oxygen Flow Rate 06/19/25 20:00 06/19/25 20:00 06/19/25 20:00 Temperature 36.5 C Pulse Rate 73 73 Respiratory Rate 16 Blood Pressure 138/57 L Pulse Oximetry 91 94 Oxygen Delivery Nasal Cannula Oxygen Flow Rate 4 06/19/25 20:22 06/19/25 20:46 06/19/25 22:00 Temperature 36.6 C Pulse Rate 72 68 Respiratory Rate 20 20 Blood Pressure 132/49 L Pulse Oximetry 91 89 L Oxygen Delivery High Flow Nasal Cannula Oxygen Flow Rate 5 06/19/25 22:10 06/19/25 22:15 06/19/25 22:26 Temperature Pulse Rate 70 70 Respiratory Rate 20 13 Blood Pressure Pulse Oximetry 98 Oxygen Delivery BiPAP BiPAP Oxygen Flow Rate 06/19/25 22:50 06/19/25 23:51 06/19/25 23:58 Temperature 36.5 C Pulse Rate 72 71 Respiratory Rate 16 18 21 H Blood Pressure 120/45 L Pulse Oximetry 92 Oxygen Delivery BiPAP Oxygen Flow Rate 06/19/25 23:59 06/20/25 00:00 06/20/25 00:00 Temperature Pulse Rate 71 71 Respiratory Rate Blood Pressure Pulse Oximetry 100 96 Oxygen Delivery BiPAP BiPAP Oxygen Flow Rate 06/20/25 00:05 06/20/25 00:14 06/20/25 02:00 Temperature Pulse Rate 98 100 69 Respiratory Rate 21 H 20 Blood Pressure Pulse Oximetry Oxygen Delivery Oxygen Flow Rate 06/20/25 04:00 06/20/25 04:00 06/20/25 04:00 Temperature 37.0 C Pulse Rate 68 67 Respiratory Rate 22 H Blood Pressure 129/50 L Pulse Oximetry 96 100 Oxygen Delivery BiPAP Oxygen Flow Rate 06/20/25 04:03 06/20/25 04:05 06/20/25 04:46 Temperature Pulse Rate 67 67 67 Respiratory Rate 20 Blood Pressure Pulse Oximetry 96 96 Oxygen Delivery BiPAP BiPAP Oxygen Flow Rate 06/20/25 05:26 06/20/25 05:43 06/20/25 06:00 Temperature 36.8 C 36.8 C Pulse Rate 67 67 71 Respiratory Rate 26 H 26 H Blood Pressure 140/96 H 112/47 L Pulse Oximetry 100 98 Oxygen Delivery Oxygen Flow Rate 06/20/25 06:43 06/20/25 07:43 06/20/25 07:45 Temperature 36.8 C 36.6 C 36.6 C Pulse Rate 70 66 66 Respiratory Rate 24 H 13 13 Blood Pressure 125/52 L 119/52 L 119/52 L Pulse Oximetry 98 100 100 Oxygen Delivery Oxygen Flow Rate 06/20/25 07:55 06/20/25 08:00 06/20/25 08:01 Temperature 36.7 C Pulse Rate 66 66 68 Respiratory Rate 12 20 14 Blood Pressure 118/44 L Pulse Oximetry 100 99 Oxygen Delivery BiPAP Oxygen Flow Rate 06/20/25 08:08 Temperature Pulse Rate 67 Respiratory Rate 20 Blood Pressure Pulse Oximetry Oxygen Delivery Oxygen Flow Rate Exam Const: General: comfortable Neck: Neck: supple and no JVD Resp: Auscultation: diminished lung sounds Cardio: Rate: regular rate Rhythm: regular rhythm Neuro: Speech: normal speech Extrem: General: edema Other: chronic lymphedema Psych: Mental Status: mental status grossly normal Results Labs and Meds 06/20/25 09:32 06/20/25 03:11 Lab results: Cardiac Enzymes 06/19/25 06/19/25 06/20/25 Range/Units 11:36 21:39 03:11 AST 45 H 45 H (14-36) U/L Troponin I 0.463 H* 0.581 H* 0.502 H* (0.000-0.034) ng/mL Coagulation 06/19/25 Range/Units 11:36 PT 19.8 H (11.1-14.7) Seconds APTT 32.7 (22.3-36.8) Seconds CBC 06/19/25 06/19/25 06/19/25 Range/Units 11:36 17:14 21:39 WBC 14.1 H (4.5-10.0) K/mm3 RBC 2.56 L (4.2-5.4) M/mm3 Hgb 6.5 L* 6.6 L* 7.3 L (12.0-15.0) g/dL Hct 22.4 L 23.1 L 25.7 L (37.0-47.0) % Plt Count 140 L (150-375) k/mm3 Lymph # (Auto) 0.90 (0.9-3.2) K/mm3 [place] # (Auto) 0.5 (0.1-0.6) K/mm3 Eos # (Auto) 0.0 (0-0.3) K/mm3 Baso # (Auto) 0.1 (0.0-0.1) K/mm3 06/20/25 Range/Units 03:11 WBC 13.6 H (4.5-10.0) K/mm3 RBC 2.71 L (4.2-5.4) M/mm3 Hgb 6.9 L* (12.0-15.0) g/dL Hct 24.3 L (37.0-47.0) % Plt Count 138 L (150-375) k/mm3 Lymph # (Auto) 0.67 L (0.9-3.2) K/mm3 [place] # (Auto) 0.5 (0.1-0.6) K/mm3 Eos # (Auto) 0.0 (0-0.3) K/mm3 Baso # (Auto) 0.1 (0.0-0.1) K/mm3 Comprehensive Metabolic Panel 06/19/25 06/19/25 06/20/25 Range/Units 11:36 21:39 03:11 Sodium 137 136 L 136 L (137-145) mmol/L Potassium 3.7 3.6 3.5 (3.4-5.0) mmol/L Chloride 85 L 87 L 88 L (98-107) mmol/L Carbon Dioxide > 40 H > 40 H > 40 H (22-30) mmol/L BUN 51 H 55 H 55 H (7-17) mg/dL Creatinine 1.92 H 1.72 H 1.93 H (0.7-1.0) mg/dL Glucose 150 H 186 H 190 H (65-110) mg/dL Calcium 8.1 L 7.9 L 8.0 L (8.4-10.2) mg/dL AST 45 H 45 H (14-36) U/L ALT 18 16 (6-35) U/L Alkaline Phosphatase 82 72 (38-126) U/L Total Protein 8.8 H 8.6 H (6.3-8.2) g/dL Albumin 3.3 L 3.2 L (3.5-5.1) g/dL Intake and Output 06/19/25 06/20/25 06/20/25 23:59 07:59 15:59 Intake Total 600 350 Output Total 850 Balance 600 -500 Intake: IV 250 Cefepime 2 gm In Sodium 50 Chloride 0.9% IV 50 ml @ 100 mls/hr IVPB Q8HR [facility] Rx#: [id number] Doxycycline IV 100 mg In Sodium 100 Chloride 0.9% IV 100 ml @ 100 mls/hr IVPB Q12HR [facility] Rx#: [id number] metroNIDAZOLE 500 MG/ISO 100ML 100 500 mg In 100 ml @ 100 mls/hr IVPB Q8HR [facility] Rx#:[id number] Intake (Blood Product) Amt 350 350 Leukocyte Reduced Rbc Unit 350 [id number] Leukocyte Reduced Rbc Unit 350 [id number] Output: Catheter Urine 850 Urethral Catheter 850 Patient Weight 06/20/25 23:59 Weight 256 kg EKG Interpretation EKG: sinus rhythm EKG shows: sinus rhythm
--- NOTE | 2025-06-20 09:43 | PCSTNOTE ---
Please refer to the Bedside Swallow Evaluation in the EMR. Please note, silent aspiration cannot be ruled out at bedside. The patient is a 60 year old female admitted with pneumonia and anemia. Orders received from the physician to complete a BSE and r/o aspiration risk. The patient was presented the following consistencies: 5cc/tsp thin liquid, thin liquid via straw, pudding/puree, and cracker solid consistency. The patient was alert and attentive. The head of the bed was elevated and the patient positioned upright. Oral Stage: Timely oral preparation and transit without viewed residual. The patient required some extra time to masticate fruit cocktail and solid trials but completed in a fairly timely manner. Pharyngeal Stage: The patient was viewed to have timely swallow initiation across consistencies with good laryngeal elevation and no CSA such as coughing, choking, or change in vocal quality. Recommend 1. Regular Diet / Level 7 2. Thin Liquid / Level 0 3. Upright 4. Frequent Observation 5. Slow rate of intake.
[2025-06-20 11:09] LABS: Immature Reticulocyte Fraction 26.8 % (3.0-15.9); Reticulocyte Hemoglobin Conten 24.0 pg (28.2-36.6); Reticulocytes Absolute 0.07 10^6/uL (0.02-0.10)
[2025-06-20] MEDS: PERFLUTREN LIPID MICROSPHERES 1.5 ML VIAL DILUTED TO 10 ML TOTAL VOLUME IV PUSH (12:05)
--- NOTE | 2025-06-20 12:05 | IVDEFINITY ---
Prior to administration of IV Definity the patient was educated on the risks and benefits of the imaging enhancing agent including potential adverse side effects. The patient verbalized understanding. Allergies were verified. No exclusion criteria were identified and at least one of the following inclusion criteria were met: 1) physician request, 2) patient technically difficult to image (per the [place] [employer] guidelines of two or more segments not discernable within the apical view), or 3) questionable left ventricular function. ?
[2025-06-20 13:10] LABS: Iron 40 ug/dL (37-170)
[2025-06-20 13:19] LABS: Percent Iron Saturation 12 % (20-50)
[2025-06-20 13:46] LABS: Ferritin 36.40 ng/mL (11.1-264)
--- NOTE | 2025-06-20 14:07 | VASCRN ---
Order received for:PICC line placement. After review of the chart and the patient assessment, patient is not a candidate for the following reason(s): Veins are too deep in the upper arm to be able to access. Provider notified:Patient's nurse Kirti is contacting hospitalist, Dr. Montes.
[2025-06-20 14:18] LABS: Vitamin B12 844.0 pg/mL (239-931)
--- NOTE | 2025-06-20 16:36 | PC.NURSE ---
Addendum entered by Kirti Barber RN 06/20/25 16:39: This phone call took place at 1430. Original Note: RN updated Dr. Montes that the Vascular director of income tax was unable to place PICC line. Vascular director of income tax stated The pt's veins being too deep. They 6in deep and I don't have a needle that is long enough to access them. No orders received
[2025-06-20] MEDS: ACETAMINOPHEN 325 MG TABLET 650 MG PO (19:55)
[2025-06-21] VITALS (33 sets, daily range): BP systolic 110–132; BP diastolic 50–56; PULSE 65–85; RESP 15–29; TEMP 36.3–36.8; O2SAT 95–100
[2025-06-21] MEDS: IPRATROPIUM 0.5 MG/ALBUTEROL SULFATE 2.5 MG AMPUL.NEB 3 ML INHALATION ×6 (00:25→20:25)
[2025-06-21 03:02] LABS: Hematocrit 23.5 % (37.0-47.0); Immature Granulocyte Percent A 0.7 % (0-0.5); Lymphocytes Absolute Auto 0.95 K/mm3 (0.9-3.2); Mean Corpuscular HGB Conc 28.9 g/dl (32-36); Mean Corpuscular Hemoglobin 25.9 pg (26-34); Mean Corpuscular Volume 89.4 fl (80-100); Nucleated Red Blood Cells Absolute Auto 0.000 K/mm3 (0.0-0.012); Nucleated Red Blood Cells Perc 0.0 % (0.0-0.2); Platelet Count Result 131 k/mm3 (150-375); Red Blood Count 2.63 M/mm3 (4.2-5.4); White Blood Count 10.1 K/mm3 (4.5-10.0)
[2025-06-21 03:15] LABS: Alanine Aminotransferase 19 U/L (6-35); Albumin Level 3.1 g/dL (3.5-5.1); Alkaline Phosphatase 68 U/L (38-126); Aspartate Amino Transferase 43 U/L (14-36); Bilirubin,Total 0.6 mg/dL (0.2-1.3); Blood Urea Nitrogen 59 mg/dL (7-17); Calcium 7.8 mg/dL (8.4-10.2); Chloride 88 mmol/L (98-107); Estimated CRCL calculation 60 ml/min; Estimated Glomerular Filt Rate 25; Glucose 164 mg/dL (65-110); Magnesium 1.8 mg/dL (1.6-2.3); Potassium 3.3 mmol/L (3.4-5.0); Sodium 136 mmol/L (137-145); Total Protein 8.4 g/dL (6.3-8.2)
[2025-06-21 03:21] LABS: Carbon Dioxide > 40 mmol/L (22-30)
[2025-06-21 03:45] LABS: Hemoglobin 6.8 g/dL (12.0-15.0)
[2025-06-21 03:46] LABS: Hypochromasia 1+; Schistocytes None Seen
[2025-06-21] MEDS: VANCOMYCIN 1,500 MG/NS 500 ML 1,500 MG/500 ML BAG 250 MG IVPB ×2 (04:06→23:08)
[2025-06-21] MEDS: CEFEPIME 2 GM in SODIUM CHLORIDE 0.9% IV 50 ML 100 ML IVPB ×3 (05:16→21:13)
[2025-06-21] MEDS: ACETAMINOPHEN 325 MG TABLET 650 MG PO ×2 (05:38→10:24)
[2025-06-21] MEDS: TUBING, BLOOD PLUM PUMP TUBING 1 EACH XX (06:30)
[2025-06-21] MEDS: SODIUM CHLORIDE 0.9% IV 250 ML 30 ML IV CONT (06:50)
[2025-06-21] MEDS: FUROSEMIDE INJ 40 MG/4 ML VIAL 20 MG IV PUSH (08:22)
[2025-06-21] MEDS: PANTOPRAZOLE SODIUM IV 40 MG VIAL IV PUSH (08:23)
[2025-06-21] MEDS: MUPIROCIN 2% OINT 22 GM TUBE 1 APPLIC EACH NARE ×2 (08:24→21:13)
[2025-06-21] MEDS: metroNIDAZOLE 500 MG/ISO 100ML 500 MG/100 ML BAG 100 MG IVPB ×2 (08:39→13:49)
[2025-06-21] MEDS: DOXYCYCLINE IV 100 MG in SODIUM CHLORIDE 0.9% IV 100 ML IVPB (08:41)
--- NOTE | 2025-06-21 09:15 | P.PNCA_ITS ---
Progress Note: A&P Assessment and Plan (1) Acute exacerbation of chronic heart failure: Code(s): I50.9 - Heart failure, unspecified Status: Acute (2) Acute non-ST elevation myocardial infarction (NSTEMI): Code(s): I21.4 - Non-ST elevation (NSTEMI) myocardial infarction Status: Acute (3) UTI (urinary tract infection): Code(s): N39.0 - Urinary tract infection, site not specified Status: Acute (4) Anemia: Qualifiers: Anemia type: unspecified type Qualified Code(s): D64.9 - Anemia, unspecified Code(s): D64.9 - Anemia, unspecified Status: Acute (5) Acute hypoxemic respiratory failure: Code(s): J96.01 - Acute respiratory failure with hypoxia Status: Acute (6) Pneumonia: Code(s): J18.9 - Pneumonia, unspecified organism Status: Acute Plan Elevated troponin. Flat at 0.581 and 0.502-most likely represent demand ischemia in setting of hypoxemia and anemia. EKG no acute ST/T wave changes. She had MPI at OSH 10/19/24 per [facility] review that demonstrated no obvious ischemia. Repeat echo difficult study d/t patient body habitus but EF 65-70%. Continue rosuvastatin 20 mg daily and coreg 12.5 mg BID. No ischemic w/u planned at this time CHF-acute on chronic diastolic HF. Echo at OSH showed EF of 60% with grade III diastolic dysfunction, mild MR and mild TR, reported moderate TR with RV enlargement and RV hypokinesia with unchanged EF on this admission. On admission her pBNP was 9940 and her CXR demonstrated cardiomegaly with pulmonary vascular congestion. Will change to PO lasix, repeat pBNP in am, monitoring renal function closely. Will need accurate intake and output. Pneumonia/UTI-antibiotic therapy as per primary team CRISTA-appears baseline Cr. is around 1 per OSH EPIC review. Will change to PO diuresis. Anemia with Hgb of 6.6 on admission-GI is following given anemia and occult positive stool. Will await further recommendation. Down to 6.6 this am Acute hypoxic respiratory failure-most likely secondary to obesity hypoventilation syndrome compounded by pneumonia. Continue O2 support. BIPAP for all sleep Chronic lymphedema of bilateral LE. Reports edema more significant than normal. will monitor with diuresis. May benefit from compression AMANDA-BIPAP for all sleep Morbid Obesity and bed bound Subjective Date/time seen: 06/21/25 09:15 Interval history: 06/21/25-Patient is sitting up in bed c/o pain in back and legs. No chest pain or SOB at this time. No reports of any bloody stools per patient Review of Systems Review of Systems: All systems reviewed & are unremarkable except as noted in HPI and below Exam Const: General: comfortable Neck: Neck: supple and no JVD Resp: Auscultation: diminished lung sounds Cardio: Rate: regular rate Rhythm: regular rhythm Neuro: Speech: normal speech Extrem: General: edema Other: chronic lymphedema Psych: Mental Status: mental status grossly normal Objective Data Vital Signs Vital Signs: Vital Signs - 24 hr 06/20/25 10:00 06/20/25 10:03 06/20/25 10:32 Temperature Pulse Rate 70 70 Respiratory Rate Blood Pressure Pulse Oximetry 100 Oxygen Delivery Nasal Cannula Oxygen Flow Rate 3 Fraction of Inspired Oxygen 06/20/25 11:26 06/20/25 12:00 06/20/25 12:00 Temperature 36.4 C Pulse Rate 86 86 68 Respiratory Rate 25 H 25 H Blood Pressure 123/44 L Pulse Oximetry 93 93 Oxygen Delivery Nasal Cannula Oxygen Flow Rate 3 Fraction of Inspired Oxygen 06/20/25 12:32 06/20/25 12:37 06/20/25 12:39 Temperature Pulse Rate 66 66 66 Respiratory Rate 19 20 Blood Pressure Pulse Oximetry 99 Oxygen Delivery Nasal Cannula Oxygen Flow Rate 3 Fraction of Inspired Oxygen 06/20/25 13:00 06/20/25 14:00 06/20/25 15:56 Temperature 36.2 C L Pulse Rate 68 67 Respiratory Rate 18 Blood Pressure 104/53 L Pulse Oximetry 100 Oxygen Delivery BiPAP Oxygen Flow Rate Fraction of Inspired Oxygen 32 06/20/25 15:58 06/20/25 15:59 06/20/25 16:00 Temperature Pulse Rate 66 66 67 Respiratory Rate 20 17 Blood Pressure Pulse Oximetry 99 Oxygen Delivery BiPAP Oxygen Flow Rate Fraction of Inspired Oxygen 06/20/25 16:00 06/20/25 16:03 06/20/25 16:49 Temperature Pulse Rate 66 66 Respiratory Rate 20 20 Blood Pressure Pulse Oximetry 99 97 Oxygen Delivery BiPAP Nasal Cannula Oxygen Flow Rate 3 Fraction of Inspired Oxygen 32 06/20/25 18:00 06/20/25 19:55 06/20/25 20:00 Temperature 36.3 C L Pulse Rate 75 70 68 Respiratory Rate 29 H Blood Pressure 137/70 Pulse Oximetry 100 Oxygen Delivery Oxygen Flow Rate Fraction of Inspired Oxygen 06/20/25 20:00 06/20/25 20:00 06/20/25 20:25 Temperature Pulse Rate 75 68 Respiratory Rate 25 H Blood Pressure Pulse Oximetry 97 Oxygen Delivery BiPAP Oxygen Flow Rate 3 Fraction of Inspired Oxygen 06/20/25 20:29 06/20/25 20:29 06/20/25 20:41 Temperature Pulse Rate 68 68 67 Respiratory Rate 20 25 H 24 H Blood Pressure Pulse Oximetry 100 100 Oxygen Delivery BiPAP BiPAP Oxygen Flow Rate Fraction of Inspired Oxygen 06/20/25 22:00 06/21/25 00:00 06/21/25 00:00 Temperature Pulse Rate 72 65 Respiratory Rate Blood Pressure Pulse Oximetry 100 Oxygen Delivery BiPAP Oxygen Flow Rate 3 Fraction of Inspired Oxygen 06/21/25 00:00 06/21/25 00:25 06/21/25 00:29 Temperature 36.4 C L Pulse Rate 68 68 68 Respiratory Rate 20 20 20 Blood Pressure 121/50 L Pulse Oximetry 100 100 Oxygen Delivery BiPAP Oxygen Flow Rate Fraction of Inspired Oxygen 06/21/25 00:34 06/21/25 02:00 06/21/25 04:00 Temperature 36.4 C L Pulse Rate 67 68 67 Respiratory Rate 22 H 29 H Blood Pressure 125/52 L Pulse Oximetry 98 Oxygen Delivery Oxygen Flow Rate Fraction of Inspired Oxygen 06/21/25 04:00 06/21/25 04:00 06/21/25 04:38 Temperature Pulse Rate 74 73 Respiratory Rate 24 H Blood Pressure Pulse Oximetry 97 Oxygen Delivery BiPAP Oxygen Flow Rate 3 Fraction of Inspired Oxygen 06/21/25 04:41 06/21/25 06:00 06/21/25 06:33 Temperature 36.4 C L Pulse Rate 73 66 67 Respiratory Rate 24 H 24 H Blood Pressure 110/50 L Pulse Oximetry 97 97 Oxygen Delivery BiPAP Oxygen Flow Rate Fraction of Inspired Oxygen 06/21/25 06:49 06/21/25 07:49 06/21/25 07:49 Temperature 36.6 C 36.3 C L Pulse Rate 66 65 85 Respiratory Rate 24 H 22 H 16 Blood Pressure 112/54 L 117/51 L Pulse Oximetry 97 99 98 Oxygen Delivery BiPAP Oxygen Flow Rate Fraction of Inspired Oxygen 06/21/25 07:49 06/21/25 08:25 06/21/25 08:37 Temperature 36.3 C L 36.7 C Pulse Rate 85 72 71 Respiratory Rate 16 18 Blood Pressure 117/51 L 113/56 L Pulse Oximetry 98 98 Oxygen Delivery Oxygen Flow Rate Fraction of Inspired Oxygen Intake/Output Intake/Output: Intake & Output 06/18/25 06/19/25 06/20/25 06/21/25 23:59 23:59 23:59 23:59 Intake Total 650 1740 545 Output Total 1600 750 Balance 650 140 -205 Meds/Results Medications: Active Medications Generic Name Dose Route Start Last Admin Trade Name Freq PRN Reason Stop Dose Admin Acetaminophen 650 mg 06/19/25 15:05 06/21/25 05:38 Acetaminophen 325 Mg Tablet PO 650 mg Q4H PRN Administration Mild Pain (1-3) or Fever Albuterol/Ipratropium 3 ml 06/19/25 21:10 06/21/25 07:46 Ipratropium 0.5 Mg/Albuterol Sulfate 2.5 Mg Ampul.Neb 3 Ml INHALATION 3 ml Q4HRT HIPOLITO Administration Carvedilol 12.5 mg 06/20/25 09:00 06/21/25 08:25 Carvedilol 12.5 Mg Tablet PO 12.5 mg Q12HR IHPOLITO Administration Dextrose 12.5 gm 06/19/25 22:22 Dextrose 50% 25 Gm/50 Ml Syringe IV PUSH PRN PRN Hypoglycemia Protocol Doxepin HCl 25 mg 06/19/25 22:30 06/20/25 19:55 Doxepin Hcl 25 Mg Capsule PO 25 mg HS HIPOLITO Administration Fluoxetine HCl 40 mg 06/20/25 09:00 06/21/25 08:26 Fluoxetine Hcl 20 Mg Capsule PO 40 mg DAILY HIPOLITO Administration Furosemide 20 mg 06/20/25 09:00 06/21/25 08:22 Furosemide Inj 40 Mg/4 Ml Vial IV PUSH 20 mg BID HIPOLITO Administration Glucose 15 gm 06/19/25 22:22 Glucose Oral Gel 15 Gm Of Glucse In 37.5 Gm Tube PO PRN PRN Hypoglycemia Protocol Cefepime HCl 2 gm/ Sodium 50 mls @ 100 mls/hr 06/19/25 22:00 06/21/25 05:16 Chloride IVPB 100 mls/hr Q8HR HIPOLITO Administration Metronidazole 500 mg in 100 mls @ 100 mls/hr 06/19/25 22:00 06/21/25 08:39 Flagyl 500 Mg/Iso Soln 100 Ml IVPB 100 mls/hr Q8HR HIPOL[place]O Administration Doxycycline Hyclate 100 mg/ 100 mls @ 100 mls/hr 06/19/25 21:00 06/21/25 08:41 Sodium Chloride IVPB 100 mls/hr Q12HR HIPOLITO Administration Dextrose 1,000 mls @ 100 mls/hr 06/19/25 22:22 Dextrose 5% 1,000 Ml IVPB PRN PRN Hypoglycemia Protocol Vancomycin HCl 1,500 mg in 500 mls @ 250 mls/hr 06/21/25 04:00 06/21/25 04:06 Vancomycin 1,500 Mg/Ns 500 Ml IVPB 250 mls/hr Q18H HIPOLITO Administration Sodium Chloride 250 mls @ 30 mls/hr 06/21/25 05:03 06/21/25 06:50 Normal Saline Iv IV CONT 06/21/25 13:22 30 mls/hr .Q8H20M STA Administration Insulin Aspart 2 - 5 units 06/20/25 12:00 06/21/25 08:21 Insulin Aspart (*Bkc) 100 Units/Ml SUB-Q Not Given TIDWM HIPOLITO Protocol Insulin Aspart 1 - 2 units 06/20/25 21:00 06/20/25 22:08 Insulin Aspart (*Bkc) 100 Units/Ml SUB-Q Not Given HS HIPOLITO Protocol Mupirocin 1 applic 06/19/25 21:00 06/21/25 08:24 Mupirocin 2% Oint 22 Gm Tube EACH NARE 06/24/25 09:01 1 applic Q12HR HIPOLITO Administration Ondansetron HCl 4 mg 06/19/25 15:05 06/19/25 20:36 Ondansetron Inj 4 Mg/2 Ml Vial IV PUSH 4 mg Q4H PRN Administration Nausea Pantoprazole Sodium 40 mg 06/20/25 09:00 06/21/25 08:23 Pantoprazole Sodium Iv 40 Mg Vial IV PUSH 40 mg QAM HIPOL[place]O Administration Radiology Results: ITS Impressions Chest X-Ray 06/19/25 12:09 IMPRESSION: 1. Cardiomegaly with pulmonary vascular congestion. 2. Opacities in the left mid and lower lung zones which could represent atelectasis and/or pneumonia. 3. Elevation of the right hemidiaphragm. Venous Doppler Study 06/20/25 16:52 Impression: 1: Lower extremity venous structures not visualized due to body habitus. Cannot exclude deep venous thrombosis. Renal Ultrasound 06/20/25 17:00 Impression: 1: Limited study due to patient body habitus. No significant abnormality of the right kidney identified. Left kidney not visualized. Labs Labs: Laboratory Results - last 24 hr 06/19/25 06/20/25 06/20/25 13:57 03:11 09:32 WBC RBC Hgb 7.5 L Hct 25.7 L MCV MCH MCHC RDW Plt Count MPV Immature Gran % (Auto) Neut % (Auto) Lymph % (Auto) [place] % (Auto) Eos % (Auto) Baso % (Auto) Lymph # (Auto) [place] # (Auto) Eos # (Auto) Baso # (Auto) Abs Immat Gran (auto) Absolute Neuts (auto) Absolute Nucleated RBC Band Neutrophils % Nucleated RBC % Platelet Estimate Hypochromasia Schistocytes Absolute Retic 0.07 Percent Retic 2.65 Immature Retic Fraction 26.8 H Retic Hgb Content 24.0 L Sodium Potassium Chloride Carbon Dioxide Anion Gap BUN Creatinine Estim Creat Clear Calc Estimated GFR Glucose POC Capillary Glucose Calcium Magnesium Iron 40 TIBC 339 % Saturation 12 L Ferritin 36.40 Total Bilirubin AST ALT Alkaline Phosphatase Total Protein Albumin Vitamin B12 844.0 Folate 5.0 Vancomycin Trough Blood Type A Positive Antibody Screen Negative Crossmatch See Detail 06/20/25 06/20/25 06/20/25 11:22 15:31 20:11 WBC RBC Hgb Hct MCV MCH MCHC RDW Plt Count MPV Immature Gran % (Auto) Neut % (Auto) Lymph % (Auto) [place] % (Auto) Eos % (Auto) Baso % (Auto) Lymph # (Auto) [place] # (Auto) Eos # (Auto) Baso # (Auto) Abs Immat Gran (auto) Absolute Neuts (auto) Absolute Nucleated RBC Band Neutrophils % Nucleated RBC % Platelet Estimate Hypochromasia Schistocytes Absolute Retic Percent Retic Immature Retic Fraction Retic Hgb Content Sodium Potassium Chloride Carbon Dioxide Anion Gap BUN Creatinine Estim Creat Clear Calc Estimated GFR Glucose POC Capillary Glucose 163 H 162 H 162 H Calcium Magnesium Iron TIBC % Saturation Ferritin Total Bilirubin AST ALT Alkaline Phosphatase Total Protein Albumin Vitamin B12 Folate Vancomycin Trough Blood Type Antibody Screen Crossmatch 06/21/25 06/21/25 02:56 07:21 WBC 10.1 H RBC 2.63 L Hgb 6.8 L* Hct 23.5 L MCV 89.4 MCH 25.9 L MCHC 28.9 L RDW 15.3 H Plt Count 131 L MPV 9.5 Immature Gran % (Auto) 0.7 H Neut % (Auto) 80.5 H Lymph % (Auto) 9.4 L [place] % (Auto) 6.5 Eos % (Auto) 2.3 Baso % (Auto) 0.6 Lymph # (Auto) 0.95 [place] # (Auto) 0.7 H Eos # (Auto) 0.2 Baso # (Auto) 0.1 Abs Immat Gran (auto) 0.07 H Absolute Neuts (auto) 8.1 H Absolute Nucleated RBC 0.000 Band Neutrophils % Not Reportable Nucleated RBC % 0.0 Platelet Estimate Slightly decreased Hypochromasia 1+ Schistocytes None seen Absolute Retic Percent Retic Immature Retic Fraction Retic Hgb Content Sodium 136 L Potassium 3.3 L Chloride 88 L Carbon Dioxide > 40 H Anion Gap BUN 59 H Creatinine 2.02 H Estim Creat Clear Calc 60 Estimated GFR 25 L Glucose 164 H POC Capillary Glucose 154 H Calcium 7.8 L Magnesium 1.8 Iron TIBC % Saturation Ferritin Total Bilirubin 0.6 AST 43 H ALT 19 Alkaline Phosphatase 68 Total Protein 8.4 H Albumin 3.1 L Vitamin B12 Folate Vancomycin Trough 18.3 Blood Type Antibody Screen Crossmatch
[2025-06-21 09:45] LABS: Alveolar/Arterial O2 Gradient 34.1 mmHg; Fractional Inspired Oxygen 32 %; HCO3 ABG 45.0 mEq/l (22.0-26.0); Oxygen Content ABG 11.6 %vol (16.0-22.0); Oxygen Saturation ABG 97.4 % (95.0-100.0); PO2 ABG 104.3 mmHg (80.0-100.0); PO2 FiO2 Ratio Arterial Blood 3.26 %
[2025-06-21 09:49] LABS: PCO2 ABG 76.7 mmHg (35.0-45.0)
[2025-06-21 09:50] LABS: Liters per Minute 3.0 LPM; Site Drawn LEFT RADIAL
[2025-06-21] MEDS: POTASSIUM CHLORIDE 20 MEQ PACKET (FOR LIQUID) 40 MEQ PO (10:26)
--- NOTE | 2025-06-21 11:02 | PM.IMPN ---
Progress Note: A&P Assessment and Plan (1) Pneumonia: Code(s): J18.9 - Pneumonia, unspecified organism Status: Acute (2) Acute dyspnea: Code(s): R06.00 - Dyspnea, unspecified Status: Acute (3) Anemia: Qualifiers: Anemia type: unspecified type Qualified Code(s): D64.9 - Anemia, unspecified Code(s): D64.9 - Anemia, unspecified Status: Acute (4) UTI (urinary tract infection): Code(s): N39.0 - Urinary tract infection, site not specified Status: Acute (5) Acute non-ST elevation myocardial infarction (NSTEMI): Code(s): I21.4 - Non-ST elevation (NSTEMI) myocardial infarction Status: Acute (6) Acute hypoxemic respiratory failure: Code(s): J96.01 - Acute respiratory failure with hypoxia Status: Acute (7) Acute exacerbation of chronic heart failure: Code(s): I50.9 - Heart failure, unspecified Status: Acute Plan Acute on chronic hypoxic respiratory failure - Baseline 3 L nasal cannula while awake and also uses with BiPAP during naps and sleep. Chest x-ray demonstrates cardiomegaly with pulmonary vascular congestion, opacities in the left mid and lower lung zones which could represent atelectasis and/or pneumonia, elevation of right hemidiaphragm. MRSA positive. Quad viral screen negative. Procalcitonin 10.5. Started on vancomycin, cefepime, doxycycline, and metronidazole. Urine antigens pending. Blood culture NGTD Continue DuoNebs. Change to oral Flagyl, Doxy. Possible pneumonia - see above CHF - BNP 9940. chest x-ray also reports pulmonary vascular congestion with cardiomegaly. Patient takes torsemide and Coreg at home. Started on Lasix IV. Fluid balance about even. Suspect she has lymphedema and right sided failure vs left sided CHF. Strict I/O, daily weight. CRISTA/CKD - Creatinine baseline about a month ago was 1.4 on review of records. Cr elevated but stable 1.7-2. Will monitor renal functions. Total protein high with renal insufficieny and anemia - consider MM. Nephrology consult. Check baseline labs. Check SPEP/UPEP Chronic indwelling Wren catheter - which was changed in the ER. Not sure if this is for comfort, sanitation or retention. UA noted but UCx grew 50-100K colonies of 3 organisms but no cx performed. Anemia - acute on chronic. Hgb 6.5 on admission status post 1 unit PRBC transfusion. Hgb again 6.8 this morning and another unit given. Stool occult blood is positive suggestive of GI bleed. GI has been consulted. On PPI. No prior levels are present. Monitor serial hemoglobin. FOBT positive stool - GI consulted. Anemia workup ordered. Deemed high risk for endoscopy. Elevated troponin - EKG showing no acute ST/T wave changes. Troponin peaked at 0.58. [place] related to demand ischemia from above and renal insufficiency. Not ACS Possible UTI - as above. Continue antibiotics Morbid obesity - BMI 91. Would benefit from calorie restriction and weight loss medication. Bed-bound status - PT/OT AMANDA - on BiPAP chronically at night and during naps at daytime Insulin-dependent diabetes mellitus - SSI. Adjust as needed. At home Lantus 20 b.i.d. Code status full code DVT prophylaxis - SCDs but not sure able to fit. No anti-coagulation due to anemia and +FOBT Subjective Date/time seen: 06/21/25 11:02 Interval history: 60-year-old female with class 3 obesity with BMI 91, bed-bound, chronic indwelling Wren catheter, CHF, obstructive disease on BiPAP during naps and sleep, chronic respiratory failure on 3 L nasal cannula continuously flu, insulin-dependent diabetes mellitus. The patient presents to [facility] ER from assisted where she is a resident via EMS with shortness of breath. Assuming care. Chart reviewed. She wears 3 L of oxygen daily. She wears 3 L of oxygen at night with her BiPAP. She complains of back and leg spasms but this is chronic. She denies that she has chronic kidney problems. She denies chest pain or shortness of breath. She had noted decreased appetite today but no nausea or vomiting. She has not been out of bed at the rehab facility prior to admission. Exam Narrative: AF 98.1 113/56 71 18 98% 3L GENERAL: Morbidly obese, and in no acute distress. CHEST: clear anteriorly and in the flanks bilaterally, No respiratory distress. HEART: Regular rate and rhythm. No murmur heard. Tele showing no significant dysrhythmias ABDOMEN: Soft, morbidly obese. No significant tenderness. Abdominal wall edema : Wren catheter secured draining clear yellow urine. EXT: Severe bilateral lower extremity lymphedema. SKIN: Multiple areas of very mild pink erythema that blanches bilateral lower extremities. Ulcerations and excoriations noted in multiple skin folds including the groin, behind the knees, under her left breast and lateral flank under her pannus NEURO: Alert and appropriate PSYCH: Normal mood and affect. Objective Data Vital Signs Vital Signs: Vital Signs - 24 hr 06/20/25 11:26 06/20/25 12:00 06/20/25 12:00 Temperature 97.6 F Pulse Rate 86 86 68 Respiratory Rate 25 H 25 H Blood Pressure 123/44 L Pulse Oximetry 93 93 Oxygen Delivery Nasal Cannula Oxygen Flow Rate 3 Fraction of Inspired Oxygen 06/20/25 12:32 06/20/25 12:37 06/20/25 12:39 Temperature Pulse Rate 66 66 66 Respiratory Rate 19 20 Blood Pressure Pulse Oximetry 99 Oxygen Delivery Nasal Cannula Oxygen Flow Rate 3 Fraction of Inspired Oxygen 06/20/25 13:00 06/20/25 14:00 06/20/25 15:56 Temperature 97.2 F L Pulse Rate 68 67 Respiratory Rate 18 Blood Pressure 104/53 L Pulse Oximetry 100 Oxygen Delivery BiPAP Oxygen Flow Rate Fraction of Inspired Oxygen 32 06/20/25 15:58 06/20/25 15:59 06/20/25 16:00 Temperature Pulse Rate 66 66 67 Respiratory Rate 20 17 Blood Pressure Pulse Oximetry 99 Oxygen Delivery BiPAP Oxygen Flow Rate Fraction of Inspired Oxygen 06/20/25 16:00 06/20/25 16:03 06/20/25 16:49 Temperature Pulse Rate 66 66 Respiratory Rate 20 20 Blood Pressure Pulse Oximetry 99 97 Oxygen Delivery BiPAP Nasal Cannula Oxygen Flow Rate 3 Fraction of Inspired Oxygen 32 06/20/25 18:00 06/20/25 19:55 06/20/25 20:00 Temperature 97.4 F L Pulse Rate 75 70 68 Respiratory Rate 29 H Blood Pressure 137/70 Pulse Oximetry 100 Oxygen Delivery Oxygen Flow Rate Fraction of Inspired Oxygen 06/20/25 20:00 06/20/25 20:00 06/20/25 20:25 Temperature Pulse Rate 75 68 Respiratory Rate 25 H Blood Pressure Pulse Oximetry 97 Oxygen Delivery BiPAP Oxygen Flow Rate 3 Fraction of Inspired Oxygen 06/20/25 20:29 06/20/25 20:29 06/20/25 20:41 Temperature Pulse Rate 68 68 67 Respiratory Rate 20 25 H 24 H Blood Pressure Pulse Oximetry 100 100 Oxygen Delivery BiPAP BiPAP Oxygen Flow Rate Fraction of Inspired Oxygen 06/20/25 22:00 06/21/25 00:00 06/21/25 00:00 Temperature Pulse Rate 72 65 Respiratory Rate Blood Pressure Pulse Oximetry 100 Oxygen Delivery BiPAP Oxygen Flow Rate 3 Fraction of Inspired Oxygen 06/21/25 00:00 06/21/25 00:25 06/21/25 00:29 Temperature 97.5 F L Pulse Rate 68 68 68 Respiratory Rate 20 20 20 Blood Pressure 121/50 L Pulse Oximetry 100 100 Oxygen Delivery BiPAP Oxygen Flow Rate Fraction of Inspired Oxygen 06/21/25 00:34 06/21/25 02:00 06/21/25 04:00 Temperature 97.5 F L Pulse Rate 67 68 67 Respiratory Rate 22 H 29 H Blood Pressure 125/52 L Pulse Oximetry 98 Oxygen Delivery Oxygen Flow Rate Fraction of Inspired Oxygen 06/21/25 04:00 06/21/25 04:00 06/21/25 04:38 Temperature Pulse Rate 74 73 Respiratory Rate 24 H Blood Pressure Pulse Oximetry 97 Oxygen Delivery BiPAP Oxygen Flow Rate 3 Fraction of Inspired Oxygen 06/21/25 04:41 06/21/25 06:00 06/21/25 06:33 Temperature 97.5 F L Pulse Rate 73 66 67 Respiratory Rate 24 H 24 H Blood Pressure 110/50 L Pulse Oximetry 97 97 Oxygen Delivery BiPAP Oxygen Flow Rate Fraction of Inspired Oxygen 06/21/25 06:49 06/21/25 07:49 06/21/25 07:49 Temperature 97.8 F 97.3 F L Pulse Rate 66 65 85 Respiratory Rate 24 H 22 H 16 Blood Pressure 112/54 L 117/51 L Pulse Oximetry 97 99 98 Oxygen Delivery BiPAP Oxygen Flow Rate Fraction of Inspired Oxygen 06/21/25 07:49 06/21/25 08:25 06/21/25 08:37 Temperature 97.3 F L 98.1 F Pulse Rate 85 72 71 Respiratory Rate 16 18 Blood Pressure 117/51 L 113/56 L Pulse Oximetry 98 98 Oxygen Delivery Oxygen Flow Rate Fraction of Inspired Oxygen Intake/Output Intake/Output: Intake & Output 06/18/25 06/19/25 06/20/25 06/21/25 23:59 23:59 23:59 23:59 Intake Total 650 1740 545 Output Total 1600 750 Balance 650 140 -205 Meds/Results Medications: Active Medications Generic Name Dose Route Start Last Admin Trade Name Lesa PRN Reason Stop Dose Admin Acetaminophen 650 mg 06/19/25 15:05 06/21/25 10:24 Acetaminophen 325 Mg Tablet PO 650 mg Q4H PRN Administration Mild Pain (1-3) or Fever Albuterol/Ipratropium 3 ml 06/19/25 21:10 06/21/25 07:46 Ipratropium 0.5 Mg/Albuterol Sulfate 2.5 Mg Ampul.Neb 3 Ml INHALATION 3 ml Q4HRT HIPOLITO Administration Carvedilol 12.5 mg 06/20/25 09:00 06/21/25 08:25 Carvedilol 12.5 Mg Tablet PO 12.5 mg Q12HR HIPOLITO Administration Dextrose 12.5 gm 06/19/25 22:22 Dextrose 50% 25 Gm/50 Ml Syringe IV PUSH PRN PRN Hypoglycemia Protocol Doxepin HCl 25 mg 06/19/25 22:30 06/20/25 19:55 Doxepin Hcl 25 Mg Capsule PO 25 mg HS HIPOLITO Administration Fluoxetine HCl 40 mg 06/20/25 09:00 06/21/25 08:26 Fluoxetine Hcl 20 Mg Capsule PO 40 mg DAILY HIPOLITO Administration Furosemide 20 mg 06/21/25 17:00 Furosemide 20 Mg Tablet PO BID HIPOLITO Glucose 15 gm 06/19/25 22:22 Glucose Oral Gel 15 Gm Of Glucse In 37.5 Gm Tube PO PRN PRN Hypoglycemia Protocol Cefepime HCl 2 gm/ Sodium 50 mls @ 100 mls/hr 06/19/25 22:00 06/21/25 05:16 Chloride IVPB 100 mls/hr Q8HR HIPOLITO Administration Metronidazole 500 mg in 100 mls @ 100 mls/hr 06/19/25 22:00 06/21/25 08:39 Flagyl 500 Mg/Iso Soln 100 Ml IVPB 100 mls/hr Q8HR HIPOLITO Administration Doxycycline Hyclate 100 mg/ 100 mls @ 100 mls/hr 06/19/25 21:00 06/21/25 08:41 Sodium Chloride IVPB 100 mls/hr Q12HR HIPOL[place]O Administration Dextrose 1,000 mls @ 100 mls/hr 06/19/25 22:22 Dextrose 5% 1,000 Ml IVPB PRN PRN Hypoglycemia Protocol Vancomycin HCl 1,500 mg in 500 mls @ 250 mls/hr 06/21/25 04:00 06/21/25 04:06 Vancomycin 1,500 Mg/Ns 500 Ml IVPB 250 mls/hr Q18H HIPOL[place]O Administration Sodium Chloride 250 mls @ 30 mls/hr 06/21/25 05:03 06/21/25 06:50 Normal Saline Iv IV CONT 06/21/25 13:22 30 mls/hr .Q8H20M STA Administration Insulin Aspart 2 - 5 units 06/20/25 12:00 06/21/25 08:21 Insulin Aspart (*Bkc) 100 Units/Ml SUB-Q Not Given TIDWM H[place]O Protocol Insulin Aspart 1 - 2 units 06/20/25 21:00 06/20/25 22:08 Insulin Aspart (*Bkc) 100 Units/Ml SUB-Q Not Given HS HIPOLITO Protocol Mupirocin 1 applic 06/19/25 21:00 06/21/25 08:24 Mupirocin 2% Oint 22 Gm Tube EACH NARE 06/24/25 09:01 1 applic Q12HR HIPOLITO Administration Ondansetron HCl 4 mg 06/19/25 15:05 06/19/25 20:36 Ondansetron Inj 4 Mg/2 Ml Vial IV PUSH 4 mg Q4H PRN Administration Nausea Pantoprazole Sodium 40 mg 06/20/25 09:00 06/21/25 08:23 Pantoprazole Sodium Iv 40 Mg Vial IV PUSH 40 mg QAM [place] Administration Radiology Results: ITS Impressions Chest X-Ray 06/19/25 12:09 IMPRESSION: 1. Cardiomegaly with pulmonary vascular congestion. 2. Opacities in the left mid and lower lung zones which could represent atelectasis and/or pneumonia. 3. Elevation of the right hemidiaphragm. Venous Doppler Study 06/20/25 16:52 Impression: 1: Lower extremity venous structures not visualized due to body habitus. Cannot exclude deep venous thrombosis. Renal Ultrasound 06/20/25 17:00 Impression: 1: Limited study due to patient body habitus. No significant abnormality of the right kidney identified. Left kidney not visualized. Labs Labs: Laboratory Results - last 24 hr 09/22/25 09/23/25 09/23/25 13:57 03:11 11:22 WBC RBC Hgb Hct MCV MCH MCHC RDW Plt Count MPV Immature Gran % (Auto) Neut % (Auto) Lymph % (Auto) [place] % (Auto) Eos % (Auto) Baso % (Auto) Lymph # (Auto) [place] # (Auto) Eos # (Auto) Baso # (Auto) Abs Immat Gran (auto) Absolute Neuts (auto) Absolute Nucleated RBC Band Neutrophils % Nucleated RBC % Platelet Estimate Hypochromasia Schistocytes Absolute Retic 0.07 Percent Retic 2.65 Immature Retic Fraction 26.8 H Retic Hgb Content 24.0 L Puncture Site ABG pH ABG pCO2 ABG pO2 ABG PO2/FiO2 Ratio ABG HCO3 ABG O2 Saturation ABG O2 Content ABG Base Excess A-a Gradient Oxyhemoglobin Total Hemoglobin O2 Delivery Device O2 Liters/Min FiO2 Sodium Potassium Chloride Carbon Dioxide Anion Gap BUN Creatinine Estim Creat Clear Calc Estimated GFR Glucose POC Capillary Glucose 163 H Calcium Magnesium Iron 40 TIBC 339 % Saturation 12 L Ferritin 36.40 Total Bilirubin AST ALT Alkaline Phosphatase Total Protein Albumin Vitamin B12 844.0 Folate 5.0 Vancomycin Trough Blood Type A Positive Antibody Screen Negative Crossmatch See Detail 06/20/25 06/20/25 06/21/25 15:31 20:11 02:56 WBC 10.1 H RBC 2.63 L Hgb 6.8 L* Hct 23.5 L MCV 89.4 MCH 25.9 L MCHC 28.9 L RDW 15.3 H Plt Count 131 L MPV 9.5 Immature Gran % (Auto) 0.7 H Neut % (Auto) 80.5 H Lymph % (Auto) 9.4 L [place] % (Auto) 6.5 Eos % (Auto) 2.3 Baso % (Auto) 0.6 Lymph # (Auto) 0.95 [place] # (Auto) 0.7 H Eos # (Auto) 0.2 Baso # (Auto) 0.1 Abs Immat Gran (auto) 0.07 H Absolute Neuts (auto) 8.1 H Absolute Nucleated RBC 0.000 Band Neutrophils % Not Reportable Nucleated RBC % 0.0 Platelet Estimate Slightly decreased Hypochromasia 1+ Schistocytes None seen Absolute Retic Percent Retic Immature Retic Fraction Retic Hgb Content Puncture Site ABG pH ABG pCO2 ABG pO2 ABG PO2/FiO2 Ratio ABG HCO3 ABG O2 Saturation ABG O2 Content ABG Base Excess A-a Gradient Oxyhemoglobin Total Hemoglobin O2 Delivery Device O2 Liters/Min FiO2 Sodium 136 L Potassium 3.3 L Chloride 88 L Carbon Dioxide > 40 H Anion Gap BUN 59 H Creatinine 2.02 H Estim Creat Clear Calc 60 Estimated GFR 25 L Glucose 164 H POC Capillary Glucose 162 H 162 H Calcium 7.8 L Magnesium 1.8 Iron TIBC % Saturation Ferritin Total Bilirubin 0.6 AST 43 H ALT 19 Alkaline Phosphatase 68 Total Protein 8.4 H Albumin 3.1 L Vitamin B12 Folate Vancomycin Trough 18.3 Blood Type Antibody Screen Crossmatch 06/21/25 06/21/25 07:21 09:37 WBC RBC Hgb Hct MCV MCH MCHC RDW Plt Count MPV Immature Gran % (Auto) Neut % (Auto) Lymph % (Auto) [place] % (Auto) Eos % (Auto) Baso % (Auto) Lymph # (Auto) [place] # (Auto) Eos # (Auto) Baso # (Auto) Abs Immat Gran (auto) Absolute Neuts (auto) Absolute Nucleated RBC Band Neutrophils % Nucleated RBC % Platelet Estimate Hypochromasia Schistocytes Absolute Retic Percent Retic Immature Retic Fraction Retic Hgb Content Puncture Site Left radial ABG pH 7.386 ABG pCO2 76.7 H* ABG pO2 104.3 H ABG PO2/FiO2 Ratio 3.26 ABG HCO3 45.0 H ABG O2 Saturation 97.4 ABG O2 Content 11.6 L ABG Base Excess 17.6 A-a Gradient 34.1 Oxyhemoglobin 96.7 Total Hemoglobin 8.4 L O2 Delivery Device Nasal cannula O2 Liters/Min 3.0 FiO2 32 Sodium Potassium Chloride Carbon Dioxide Anion Gap BUN Creatinine Estim Creat Clear Calc Estimated GFR Glucose POC Capillary Glucose 154 H Calcium Magnesium Iron TIBC % Saturation Ferritin Total Bilirubin AST ALT Alkaline Phosphatase Total Protein Albumin Vitamin B12 Folate Vancomycin Trough Blood Type Antibody Screen Crossmatch
--- NOTE | 2025-06-21 13:34 | P.CONNP_ITS ---
Assessment and Plan Assessment and plan (1) Acute kidney injury: Code(s): N17.9 - Acute kidney failure, unspecified Status: Acute Assessment and Plan: * as noted on admisson (creatinine of 1.92mg/dL) * suspect multifactorial etiology: * anemia * CHF exacerbation * infection (pneumonia +/- UTI) * hypoxia * need for diuretic therapy * chronic quevedo catheter (?) * other (?) * renal ultrasound noted * check urine studies * still making urine (albeit with diuretics) and no critical electrolytes * follow trend of repeat labs and UOP (2) Stage 3 chronic kidney disease: Code(s): N18.30 - Chronic kidney disease, stage 3 unspecified Status: Chronic Assessment and Plan: * baseline creatinine runs around 1.1 - 1.6mg/dL since August 2024 * however, has been as low as 0.99mg/dL * noted fluctuations noted with acute hospitalizations... * on last hospital discharge ([facility]), creatinine was 1.43mg/dL * this causes her to bounce between CKD stage 3A and stage 3B * presumably secondary to diabetes, hypertension, CHF + diuretic therapy, vascular disease, and obesiry (3) Acute on chronic hypoxic respiratory failure: Code(s): J96.21 - Acute and chronic respiratory failure with hypoxia Status: Acute Assessment and Plan: * acute respiratory failure due to: * CHF exacerbation * anemia * possible pneumonia * other (?) * chronic component due to: * OHS * AMANDA * COPD(?) * chronic CHF * bed-bound status(?) * known baseline oxygen requirement of 3L by NC while awake and BiPAP during naps and sleep. * admission XR noted: * cardiomegaly with pulmonary vascular congestion, opacities in the left mid and lower lung zones which could represent atelectasis and/or pneumonia * viral testing for influenza/RSV/COVID negative * follow-up on urine antigens * continue current therapy as outlined (4) Acute on chronic diastolic heart failure: Code(s): I50.33 - Acute on chronic diastolic (congestive) heart failure Status: Acute Assessment and Plan: * as suggested by admission testing and exam * BNP 9940 * CXR with pulmonary vascular congestion with cardiomegaly * symptoms of shortness of breath * Echo (on 06/20) noted: * normal left ventricular size with well-preserved systolicfunction of 65 - 70% * mildly sclerotic aortic valve which is not stenotic * mild mitral annular calcification * mild to moderate tricuspid regurgitation * Moderate pulmonary hypertension, estimated pulmonary arterial systolic pressure is 54 mmHg * on IV lasix * follow I/Os and daily weights * Cardiology following (5) Pneumonia: Code(s): J18.9 - Pneumonia, unspecified organism Status: Acute Assessment and Plan: * suspected based on admission CXR * follow culture data - negative to date * on antibiotics * follow respiratory status (6) Anemia: Qualifiers: Anemia type: unspecified type Qualified Code(s): D64.9 - Anemia, unspecified Code(s): D64.9 - Anemia, unspecified Status: Acute Assessment and Plan: * acute on chronic * Hgb 6.5 on admission * Hgb down to 6.8 on 06/21 * PRBC transfusion per protocol - 2 units so far this admission * noted hemoccult positive stool * anemia studies c/w iron deficiency * GI recommendations noted -- high risk for EGD; conservative therapy * follow trend of H/H (7) UTI (urinary tract infection): Code(s): N39.0 - Urinary tract infection, site not specified Status: Acute Assessment and Plan: * admission UA suggestive * on antibiotics * unfortunately - no urine culture done (8) Diabetes: Code(s): E11.9 - Type 2 diabetes mellitus without complications Status: Acute Assessment and Plan: * follow accu-cheks * glycemic control per hospitalist I will continue to follow the patient with you while she remains hospitalized and make further recommendations as deemed necessary. Thank you for allowing me to participate in the care of this patient. L History of Present Illness Reason for Consult Consult date: 06/21/25 Reason for consult: acute renal failure (on chronic kidney disease) Chief Complaint Chief complaint: pneumonia,anemia,nstemi,gi bleed History of Present Illness Narrative: The patient is a 60-year-old female with a past medical history as outlined below who presented to [facility] Emergency Room from her nursing facility due to complaints of shortness of breath. Apparently, the patient's symptoms of shortness of breath started about 24 hours prior to her presentation to the emergency. The patient normally is on 3-4 L of oxygen by nasal cannula at baseline along with BiPAP therapy at night. Nursing staff at her nursing facility reports that due to her increasing shortness of breath, she has been using her BiPAP throughout the day in attempt to improve her respiratory status but this is not really improved her overall shortness of breath. Due to her ongoing and progressive nature of her shortness of breath, EMS was called for further assessment. By report, on their arrival, the patient was satting 75% on room air and required 15 L by non-rebreather mask to get her oxygen saturations up to 95%. She was subsequently transported to the emergency room for further assessment. On her arrival to the emergency room, she was able to be weaned back down to 4 L of oxygen with oxygen saturations in the 95 percentile range. She was otherwise hemodynamically stable and afebrile. Routine blood work demonstrated a white blood cell count of 14.1, hemoglobin 6.5, hematocrit 22.4, platelet count to 140, sodium 137, potassium 3.7, bicarb greater than 40, BUN 51, creatinine 1.92, glucose 150, calcium 8.1, magnesium 1.7, normal LFTs with the exception of an AST of 45, proBNP of 9940, albumin of 3.3, lactic acid 1.3, and initial troponin of 0.463 with a procalcitonin of 10.5. Her urinalysis was highly suggestive of a UTI with 2+ protein 3+ leukocyte esterase, 50-1 to 100 red blood cells, greater than 100 white blood cells, and 1+ bacteria but I believe this urine sample was collected from her chronic Quevedo catheter/bag. Viral testing for influenza / RSV/COVID were negative. Her chest x-ray demonstrated cardiomegaly with pulmonary vascular congestion as well as opacities in the left mid and lower lung zones which could represent atelectasis and/or pneumonia with elevation of the right hemidiaphragm. Given these laboratory findings and imaging study results, appropriate cultures were obtained and she was initiated on IV antibiotics along with a packed red blood cell transfusion. She was subsequently admitted to the hospital for further evaluation and therapy. Since her admission, her hemoglobin and hematocrit have been fluctuating and has required 2 units of packed red blood cell transfusion to date. Furthermore, her renal function has been fluctuating with her admission creatinine of 1.92 mg/dL noted and her creatinine up to 2.02 mg/dL today. Renal consultation was requested due to her acute kidney injury/acute renal failure on top of her baseline chronic kidney disease. from review of her extensive medical records at her nursing facility as well as previous hospitalizations at [facility] insult him is very, it would seem the patient has some degree of renal insufficiency at baseline with a creatinine that fluctuates anywhere from 1.1 - 1.6 mg/dL although it should be noted these fluctuations are noted present whenever she is acutely hospitalized. Her creatinine on discharge from his early [facility] in [facility] in April of this year was around 1.43 mg/dL. It is suspected that her underlying chronic kidney disease is secondary to her diabetes, hypertension, CHF + diuretic therapy, vascular disease, and obesity. As far as the patient is aware, she has never seen a senior clinical research scientist in the past with regard to her kidney issues. Currently, at the time my evaluation, she does not appear to be in any acute distress. Review of Systems 2 Review of Systems: As per HPI. [facility] Past Medical History Medical History (Updated 06/24/25 @ 15:17 by Raúl Webb MD) AMANDA (obstructive sleep apnea) Chronic anemia Obesity hypoventilation syndrome GERD (gastroesophageal reflux disease) COPD (chronic obstructive pulmonary disease) PUD (peptic ulcer disease) Hyperlipidemia Anxiety and depression Hypertension Diabetes Morbid obesity Chronic respiratory failure with hypoxia and hypercapnia Chronic diastolic (congestive) heart failure Family History Family History Mother Diabetes mellitus Cancer Hypertension Father Diabetes mellitus CKD (chronic kidney disease) Social History Social History Smoking status: Never smoker Alcohol intake: never Substance use: never Lack of Transportation: YES Lack of Food: Never True Current Housing: I Have Housing Concerned About Future Housing: YES Difficulty Paying Gas/Electric Bills: No Difficulty Paying for Meds: No Currently Unemployed: No Education: Trade/Vocational Certificate Difficulty w/ Childcare or Family Care: No Spiritual care concerns: No Meds Home Medications and Allergies Home Medications ?Medication ?Instructions ?Recorded ?Confirmed ?Type albuterol sulfate 90 mcg/actuation 2 puff inhalation Q 4H PRN 06/19/25 06/19/25 History aerosol inhaler shortness of breath or wheez ing alprazolam 0.25 mg tablet 0.25 mg PO BID PRN anxiety 0 06/19/25 06/19/25 History aspirin 81 mg chewable tablet 81 mg PO DAILY 06/19/25 06/19/25 History baclofen 10 mg tablet 10 mg PO BID 06/19/25 History carvedilol 12.5 mg tablet 12.5 mg PO BID 06/19/2505/30 History cephalexin 500 mg capsule 500 mg PO QID 06/19/2506/19 History doxepin 25 mg capsule 25 mg PO HS 06/19/25 5 History fluconazole 100 mg tablet 100 mg PO DAILY 06/19/25 History fluoxetine 40 mg capsule 40 mg PO DAILY 06/19/2505/30 History gabapentin 400 mg capsule 400 mg PO HS 06/19/25 History glucagon 1 mg solution for 1 mg subcut ONCE PRN hypogl ycemia 06/19/25 06/19/25 History injection (Glucagon Emergency Kit) hydrocodone 5 mg-acetaminophen 325 1 tablet PO Q6H PRN pain 06/19/25 06/19/25 History mg tablet insulin glargine-yfgn 100 unit/mL 20 unit subcut BID 0 06/19/25 06/19/25 History (3 mL) subcutaneous pen insulin lispro 100 unit/mL 6 unit subcut AC 06/19/25 0 06/19/25 History subcutaneous solution metolazone 2.5 mg tablet 2.5 mg PO DAILY 06/19/25 History nystatin 100,000 unit/gram topical 1 applic topical BI D 06/19/25 06/19/25 History powder rosuvastatin 20 mg tablet 20 mg PO HS 06/19/25 5 History torsemide 20 mg tablet 20 mg PO BID 06/19/25 History Allergies Allergy/AdvReac Type Severity Reaction Status Date / Time iron (From Venofer) Allergy Severe Anaphylactic Verified 06/21/25 07:30 Shock clarithromycin Allergy Mild Diarrhea Verified 06/19/25 17:02 levofloxacin Allergy Mild Rash Verified 06/19/25 17:02 Penicillins Allergy Unknown Rash Verified 06/19/25 17:02 Vital Signs Vital Signs Temp Pulse Resp BP Pulse Ox O2 Del Method O2 Flow Rate 06/21/25 12:00 72 20 98 High Flow Nasal Cannula 3 06/21/25 11:35 97.8 F 72 22 H 115/56 L 98 06/21/25 11:25 70 20 06/21/25 10:00 73 06/21/25 08:37 98.1 F 71 18 113/56 L 98 06/21/25 08:25 72 06/21/25 08:05 72 24 H 06/21/25 08:00 71 06/21/25 08:00 73 18 98 High Flow Nasal Cannula 3 06/21/25 07:55 65 24 H 06/21/25 07:49 97.3 F L 85 16 117/51 L 98 06/21/25 07:49 97.3 F L 85 16 117/51 L 98 06/21/25 07:49 65 22 H 99 BiPAP 06/21/25 06:49 97.8 F 66 24 H 112/54 L 97 06/21/25 06:33 97.5 F L 67 24 H 110/50 L 97 06/21/25 06:00 66 06/21/25 04:41 73 24 H 97 BiPAP 06/21/25 04:38 73 24 H 06/21/25 04:00 74 06/21/25 04:00 97 BiPAP 3 06/21/25 04:00 97.5 F L 67 29 H 125/52 L 98 06/21/25 02:00 68 06/21/25 00:34 67 22 H 06/21/25 00:29 68 20 100 BiPAP 06/21/25 00:25 68 20 06/21/25 00:00 97.5 F L 68 20 121/50 L 100 06/21/25 00:00 65 06/21/25 00:00 100 BiPAP 3 06/20/25 22:00 72 06/20/25 20:41 67 24 H 06/20/25 20:29 68 25 H 100 BiPAP 06/20/25 20:29 68 20 100 BiPAP 06/20/25 20:25 68 25 H 06/20/25 20:00 75 06/20/25 20:00 97 BiPAP 3 06/20/25 20:00 97.4 F L 68 29 H 137/70 100 06/20/25 19:55 70 06/20/25 18:00 75 Exam 2 Narrative: GENERAL APPEARANCE: Large/obese female in no acute distress HEENT: normocephalic, atraumatic, normal conjunctiva and sclera, nares patient NECK: no lymphadenopathy, thyromegaly, or JVD MOUTH: normal lips, teeth, and gums CARDIOVASCULAR: RRR, normal S1 and S2, no rub detected RESPIRATORY: clear anteriorly; decreased at bases ABDOMEN: morbidly obses nontender, nondistended, positive bowel sounds present; + abdominal wall edema EXTREMITIES: no evidence of cyanosis, clubbing; 3+ bilateral edema NEUROLOGICAL: alert and oriented x 3; no focal deficits noted Results Lab Results 06/25/25 05:01 06/25/25 05:01 Lab results: Most recent lab results ABG pH 7.386 (7.350-7.450) 06/21/25 09:37 ABG pCO2 76.7 mmHg (35.0-45.0) H* 06/21/25 09:37 ABG pO2 104.3 mmHg (80.0-100.0) H 06/21/25 09:37 ABG HCO3 45.0 mEq/l (22.0-26.0) H 06/21/25 09:37 ABG O2 Saturation 97.4 % (95.0-100.0) 06/21/25 09:37 Calcium 7.8 mg/dL (8.4-10.2) L 06/21/25 02:56 Magnesium 1.8 mg/dL (1.6-2.3) 06/21/25 02:56
[2025-06-21] MEDS: FUROSEMIDE 20 MG TABLET PO (17:14)
[2025-06-21 18:08] LABS: Hematocrit 24.8 % (37.0-47.0); Hemoglobin 7.3 g/dL (12.0-15.0); Immature Granulocyte Percent A 0.7 % (0-0.5); Lymphocytes Absolute Auto 0.82 K/mm3 (0.9-3.2); Mean Corpuscular HGB Conc 29.4 g/dl (32-36); Mean Corpuscular Hemoglobin 26.4 pg (26-34); Mean Corpuscular Volume 89.9 fl (80-100); Nucleated Red Blood Cells Absolute Auto 0.000 K/mm3 (0.0-0.012); Nucleated Red Blood Cells Perc 0.0 % (0.0-0.2); Platelet Count Result 131 k/mm3 (150-375); Red Blood Count 2.76 M/mm3 (4.2-5.4); White Blood Count 8.7 K/mm3 (4.5-10.0)
[2025-06-21 18:24] LABS: Hypochromasia 1+; Schistocytes None Seen
[2025-06-21 18:27] LABS: CRP 7.1 mg/dL (<1.0); Creatine Kinase 72 U/L (30-135)
--- NOTE | 2025-06-21 18:34 | PC.NURSE ---
On 06/21/25, the student, [Shakeel Mackenzie ], provided care and completed [facility] documentation on this patient. I have reviewed the student's documentation and agree with the findings.
[2025-06-21 18:56] LABS: Hemoglobin A1C 5.8 % (<5.7)
[2025-06-21 18:59] LABS: Thyroid Stimulating Hormone Reflex 3.650 uIU/mL (0.465-4.68)
[2025-06-21 18:59] LABS: Urine Eos QC 2nd Tech Confirmed
[2025-06-21] MEDS: DOXYCYCLINE HYCLATE 100 MG TABLET PO (21:13)
[2025-06-21] MEDS: DOXEPIN HCL 25 MG CAPSULE PO (21:13)
[2025-06-21 21:28] LABS: Urea Random Urine 331 MG/DL
[2025-06-21 21:30] LABS: Total Protein Urine Random 48 mg/dL; Ur Ttl Prot Creatinine Ratio 1.44 mg/mg (0-0.20)
[2025-06-22] VITALS (27 sets, daily range): BP systolic 122–132; BP diastolic 52–60; PULSE 66–103; RESP 19–24; TEMP 36.6; O2SAT 95–99
[2025-06-22] MEDS: IPRATROPIUM 0.5 MG/ALBUTEROL SULFATE 2.5 MG AMPUL.NEB 3 ML INHALATION ×6 (00:55→20:09)
[2025-06-22] MEDS: CEFEPIME 2 GM in SODIUM CHLORIDE 0.9% IV 50 ML 100 ML IVPB ×3 (05:16→22:30)
[2025-06-22 06:25] LABS: Hematocrit 25.1 % (37.0-47.0); Hemoglobin 7.4 g/dL (12.0-15.0); Immature Granulocyte Percent A 0.9 % (0-0.5); Lymphocytes Absolute Auto 0.96 K/mm3 (0.9-3.2); Mean Corpuscular HGB Conc 29.5 g/dl (32-36); Mean Corpuscular Hemoglobin 26.6 pg (26-34); Mean Corpuscular Volume 90.3 fl (80-100); Nucleated Red Blood Cells Absolute Auto 0.000 K/mm3 (0.0-0.012); Nucleated Red Blood Cells Perc 0.0 % (0.0-0.2); Platelet Count Result 132 k/mm3 (150-375); Red Blood Count 2.78 M/mm3 (4.2-5.4); White Blood Count 7.5 K/mm3 (4.5-10.0)
[2025-06-22 06:49] LABS: Anisocytosis 1+; Hypochromasia 1+
[2025-06-22 06:50] LABS: Schistocytes None Seen; Target Cells Occasional
[2025-06-22 06:52] LABS: Alanine Aminotransferase 15 U/L (6-35); Albumin Level 3.1 g/dL (3.5-5.1); Alkaline Phosphatase 69 U/L (38-126); Aspartate Amino Transferase 36 U/L (14-36); Bilirubin,Total 0.5 mg/dL (0.2-1.3); Blood Urea Nitrogen 62 mg/dL (7-17); Calcium 7.9 mg/dL (8.4-10.2); Chloride 88 mmol/L (98-107); Estimated CRCL calculation 66 ml/min; Estimated Glomerular Filt Rate 28; Glucose 148 mg/dL (65-110); Magnesium 1.7 mg/dL (1.6-2.3); Potassium 3.3 mmol/L (3.4-5.0); Sodium 136 mmol/L (137-145); Total Protein 8.4 g/dL (6.3-8.2)
[2025-06-22 07:16] LABS: Anion Gap 11 mmol/L (4-12); Carbon Dioxide 37 mmol/L (22-30)
[2025-06-22] MEDS: POTASSIUM CHLORIDE 20 MEQ PACKET (FOR LIQUID) 40 MEQ PO (08:56)
[2025-06-22] MEDS: PANTOPRAZOLE 40 MG TABLET PO (08:57)
[2025-06-22] MEDS: DOXYCYCLINE HYCLATE 100 MG TABLET PO ×2 (08:58→22:30)
[2025-06-22] MEDS: FUROSEMIDE 20 MG TABLET PO ×2 (08:58→16:49)
[2025-06-22] MEDS: MUPIROCIN 2% OINT 22 GM TUBE 1 APPLIC EACH NARE ×2 (08:58→22:30)
[2025-06-22 09:56] LABS: NT Pro B Type Natriuretic Pept 3500 pg/mL (19.9-100)
--- NOTE | 2025-06-22 11:54 | PM.IMPN ---
Progress Note: A&P Assessment and Plan (1) Acute hypoxemic respiratory failure: Code(s): J96.01 - Acute respiratory failure with hypoxia Status: Acute (2) Pneumonia: Code(s): J18.9 - Pneumonia, unspecified organism Status: Acute (3) Acute on chronic diastolic heart failure: Code(s): I50.33 - Acute on chronic diastolic (congestive) heart failure Status: Acute (4) Acute kidney injury: Code(s): N17.9 - Acute kidney failure, unspecified Status: Acute (5) Stage 3 chronic kidney disease: Code(s): N18.30 - Chronic kidney disease, stage 3 unspecified Status: Chronic (6) UTI (urinary tract infection): Code(s): N39.0 - Urinary tract infection, site not specified Status: Acute (7) Anemia: Qualifiers: Anemia type: unspecified type Qualified Code(s): D64.9 - Anemia, unspecified Code(s): D64.9 - Anemia, unspecified Status: Acute (8) Heme positive stool: Code(s): R19.5 - Other fecal abnormalities Status: Acute (9) Elevated troponin: Code(s): R79.89 - Other specified abnormal findings of blood chemistry Status: Acute (10) Morbid obesity: Code(s): E66.01 - Morbid (severe) obesity due to excess calories Status: Acute (11) AMANDA (obstructive sleep apnea): Code(s): G47.33 - Obstructive sleep apnea (adult) (pediatric) Status: Acute (12) Diabetes: Code(s): E11.9 - Type 2 diabetes mellitus without complications Status: Acute Plan Acute on chronic hypoxic respiratory failure - Baseline 3 L nasal cannula while awake and also uses with BiPAP during naps and sleep. Chest x-ray demonstrates cardiomegaly with pulmonary vascular congestion, opacities in the left mid and lower lung zones which could represent atelectasis and/or pneumonia, elevation of right hemidiaphragm. MRSA positive. Quad viral screen negative. Procalcitonin 10.5. Started on vancomycin, cefepime, doxycycline, and metronidazole. Urine antigens pending. Blood culture NGTD Check sputum. Continue DuoNebs. Continue abx. Possible pneumonia - see above CHF - BNP 9940. chest x-ray also reports pulmonary vascular congestion with cardiomegaly. Patient takes torsemide and Coreg at home. Started on Lasix IV. Fluid balance -935. Suspect she has lymphedema and right sided failure vs left sided CHF. BNP 3500 now. Strict I/O, daily weight. Back on oral Lasix now. CRISTA/CKD - Creatinine baseline about a month ago was 1.4 on review of records. Cr elevated but stable 1.7-2. Will monitor renal functions. Total protein high with renal insufficieny and anemia - consider MM. Nephrology consulted. Complement normal. TCk normal. Urine eos negative. urine Prot 1.4gm. Chronic indwelling Wren catheter - which was changed in the ER. Not sure if this is for comfort, sanitation or retention. UA noted but UCx grew 50-100K colonies of 3 organisms but no cx performed. Anemia - acute on chronic. Hgb 6.5 on admission status post 1 unit PRBC transfusion. Hgb again 6.8 yesterday morning and another unit given. Stool occult blood is positive suggestive of GI bleed. GI has been consulted. On PPI. No prior levels are present. Hgb up to 7.4. Monitor serial hemoglobin. FOBT positive stool - GI consulted. Anemia workup ordered. Deemed high risk for endoscopy. Elevated troponin - EKG showing no acute ST/T wave changes. Troponin peaked at 0.58. She had MPI at OSH 10/19/24 per [facility] review that demonstrated no obvious ischemia. [place] related to demand ischemia from above and renal insufficiency. Not ACS. Possible UTI - as above. Continue antibiotics Morbid obesity - BMI 91. Would benefit from calorie restriction and weight loss medication. Bed-bound status - PT/OT Chronic resp failure - On 3L O2 chronically. AMANDA - on BiPAP chronically at night and during naps at daytime with 3L bleed in Insulin-dependent diabetes mellitus - A1c 5.8%. Glucose well controlled. Continue to follow. Code status full code DVT prophylaxis - SCDs but not sure able to fit. No anti-coagulation due to anemia and +FOBT Subjective Date/time seen: 06/22/25 11:54 Interval history: 60-year-old female with class 3 obesity with BMI 91, bed-bound, chronic indwelling Wren catheter, CHF, obstructive disease on BiPAP during naps and sleep, chronic respiratory failure on 3 L nasal cannula continuously flu, insulin-dependent diabetes mellitus. The patient presents to [facility] ER from half-way where she is a resident via EMS with shortness of breath. Feeling better. Slept well. No CP or SOB. Cough productive of green sputum. Exam Narrative: AF 97.9 122/60 78 20 96% 3L Gen - NARD Chest - clear anteriorly. No respiratory distress. CV - RRR S1/S2. Tele showing no significant dysrhythmias Abd - Soft, morbidly obese. No significant tenderness. Abdominal wall edema : Wren catheter secured draining clear yellow urine. Ext - Severe bilateral lower extremity lymphedema. Skin - Multiple areas of very mild pink erythema that blanches bilateral lower extremities. Ulcerations and excoriations noted in multiple skin folds including the groin, behind the knees, under her left breast and lateral flank under her pannus Neuro - Alert and appropriate Psych - Normal mood and affect. Objective Data Vital Signs Vital Signs: Vital Signs - 24 hr 06/21/25 12:00 06/21/25 12:00 06/21/25 14:00 Temperature Pulse Rate 72 72 70 Respiratory Rate 20 Blood Pressure Pulse Oximetry 98 Oxygen Delivery High Flow Nasal Cannula Oxygen Flow Rate 3 Fraction of Inspired Oxygen 06/21/25 16:00 06/21/25 16:00 06/21/25 16:00 Temperature 98.2 F Pulse Rate 74 72 74 Respiratory Rate 20 18 Blood Pressure 132/51 L Pulse Oximetry 97 95 Oxygen Delivery High Flow Nasal Cannula Oxygen Flow Rate 3 Fraction of Inspired Oxygen 06/21/25 16:30 06/21/25 16:31 06/21/25 16:35 Temperature Pulse Rate 71 72 74 Respiratory Rate 20 20 Blood Pressure Pulse Oximetry 97 Oxygen Delivery Nasal Cannula Oxygen Flow Rate 3 Fraction of Inspired Oxygen 06/21/25 18:00 06/21/25 20:00 06/21/25 20:00 Temperature Pulse Rate 74 67 Respiratory Rate Blood Pressure Pulse Oximetry 96 Oxygen Delivery BiPAP Oxygen Flow Rate Fraction of Inspired Oxygen 06/21/25 20:25 06/21/25 20:25 06/21/25 20:27 Temperature Pulse Rate 66 66 Respiratory Rate 15 15 Blood Pressure Pulse Oximetry 99 99 Oxygen Delivery BiPAP BiPAP Oxygen Flow Rate Fraction of Inspired Oxygen 32 06/21/25 20:33 06/21/25 21:13 06/21/25 23:39 Temperature 97.4 F L Pulse Rate 67 67 70 Respiratory Rate 15 24 H Blood Pressure 116/51 L Pulse Oximetry 98 Oxygen Delivery Oxygen Flow Rate Fraction of Inspired Oxygen 06/22/25 00:00 06/22/25 00:57 06/22/25 00:57 Temperature Pulse Rate 78 66 66 Respiratory Rate 22 H 22 H Blood Pressure Pulse Oximetry 99 Oxygen Delivery BiPAP Oxygen Flow Rate Fraction of Inspired Oxygen 06/22/25 01:05 06/22/25 04:00 06/22/25 04:27 Temperature Pulse Rate 69 75 76 Respiratory Rate 22 H 22 H Blood Pressure Pulse Oximetry Oxygen Delivery Oxygen Flow Rate Fraction of Inspired Oxygen 06/22/25 04:28 06/22/25 04:34 06/22/25 07:19 Temperature 97.9 F Pulse Rate 66 76 74 Respiratory Rate 19 22 H 24 H Blood Pressure 122/60 Pulse Oximetry 99 98 Oxygen Delivery BiPAP Oxygen Flow Rate Fraction of Inspired Oxygen 06/22/25 08:00 06/22/25 08:00 06/22/25 08:31 Temperature Pulse Rate 78 78 Respiratory Rate 20 Blood Pressure Pulse Oximetry 98 Oxygen Delivery Oxygen Flow Rate 3 Fraction of Inspired Oxygen 06/22/25 08:32 06/22/25 08:40 06/22/25 08:58 Temperature Pulse Rate 78 76 78 Respiratory Rate 20 Blood Pressure Pulse Oximetry 96 Oxygen Delivery Nasal Cannula Oxygen Flow Rate 3 Fraction of Inspired Oxygen Intake/Output Intake/Output: Intake & Output 06/19/25 06/20/25 06/21/25 06/22/25 23:59 23:59 23:59 23:59 Intake Total 650 1740 2955 1140 Output Total 1600 2200 850 Balance 650 140 755 290 Meds/Results Medications: Active Medications Generic Name Dose Route Start Last Admin Trade Name Freq PRN Reason Stop Dose Admin Acetaminophen 650 mg 06/19/25 15:05 06/21/25 10:24 Acetaminophen 325 Mg Tablet PO 650 mg Q4H PRN Administration Mild Pain (1-3) or Fever Albuterol/Ipratropium 3 ml 06/19/25 21:10 06/22/25 08:28 Ipratropium 0.5 Mg/Albuterol Sulfate 2.5 Mg Ampul.Neb 3 Ml INHALATION 3 ml Q4HRT HIPOLITO Administration Carvedilol 12.5 mg 06/20/25 09:00 06/22/25 08:58 Carvedilol 12.5 Mg Tablet PO 12.5 mg Q12HR HIPOLITO Administration Dextrose 12.5 gm 06/19/25 22:22 Dextrose 50% 25 Gm/50 Ml Syringe IV PUSH PRN PRN Hypoglycemia Protocol Doxepin HCl 25 mg 06/19/25 22:30 06/21/25 21:13 Doxepin Hcl 25 Mg Capsule PO 25 mg HS HIPOLITO Administration Doxycycline Hyclate 100 mg 06/21/25 21:00 06/22/25 08:58 Doxycycline Hyclate 100 Mg Tablet PO 06/24/25 09:01 100 mg Q12HR HIPOLITO Administration Fluoxetine HCl 40 mg 06/20/25 09:00 06/22/25 08:58 Fluoxetine Hcl 20 Mg Capsule PO 40 mg DAILY HIPOLITO Administration Furosemide 20 mg 06/21/25 17:00 06/22/25 08:58 Furosemide 20 Mg Tablet PO 20 mg BID HIPOLITO Administration Glucose 15 gm 06/19/25 22:22 Glucose Oral Gel 15 Gm Of Glucse In 37.5 Gm Tube PO PRN PRN Hypoglycemia Protocol Cefepime HCl 2 gm/ Sodium 50 mls @ 100 mls/hr 06/19/25 22:00 06/22/25 05:46 Chloride IVPB Infused Q8HR H[place]O Infusion Dextrose 1,000 mls @ 100 mls/hr 06/19/25 22:22 Dextrose 5% 1,000 Ml IVPB PRN PRN Hypoglycemia Protocol Vancomycin HCl 1,500 mg in 500 mls @ 250 mls/hr 06/21/25 04:00 06/22/25 01:08 Vancomycin 1,500 Mg/Ns 500 Ml IVPB Infused Q18H H[facility] Infusion Insulin Aspart 2 - 5 units 06/20/25 12:00 06/22/25 10:18 Insulin Aspart (*Bkc) 100 Units/Ml SUB-Q Not Given TIDWM [facility] Protocol Insulin Aspart 1 - 2 units 06/20/25 21:00 06/21/25 20:14 Insulin Aspart (*Bkc) 100 Units/Ml SUB-Q Not Given HS [facility] Protocol Metronidazole 500 mg 06/21/25 22:00 06/22/25 05:16 Metronidazole 500 Mg Tablet PO 06/26/25 14:01 500 mg Q8HR H[place]O Administration Mupirocin 1 applic 06/19/25 21:00 06/22/25 08:58 Mupirocin 2% Oint 22 Gm Tube EACH NARE 06/24/25 09:01 1 applic Q12HR HIPOLTIO Administration Ondansetron HCl 4 mg 06/19/25 15:05 06/19/25 20:36 Ondansetron Inj 4 Mg/2 Ml Vial IV PUSH 4 mg Q4H PRN Administration Nausea Pantoprazole Sodium 40 mg 06/22/25 09:00 06/22/25 08:57 Pantoprazole 40 Mg Tablet PO 40 mg QAM [place]O Administration Radiology Results: ITS Impressions Chest X-Ray 06/19/25 12:09 IMPRESSION: 1. Cardiomegaly with pulmonary vascular congestion. 2. Opacities in the left mid and lower lung zones which could represent atelectasis and/or pneumonia. 3. Elevation of the right hemidiaphragm. Venous Doppler Study 06/20/25 16:52 Impression: 1: Lower extremity venous structures not visualized due to body habitus. Cannot exclude deep venous thrombosis. Renal Ultrasound 06/20/25 17:00 Impression: 1: Limited study due to patient body habitus. No significant abnormality of the right kidney identified. Left kidney not visualized. Labs Labs: Laboratory Results - last 24 hr 06/20/25 06/21/25 06/21/25 03:11 16:12 17:53 WBC 8.7 RBC 2.76 L Hgb 7.3 L Hct 24.8 L MCV 89.9 MCH 26.4 MCHC 29.4 L RDW 15.4 H Plt Count 131 L MPV 9.6 Immature Gran % (Auto) 0.7 H Neut % (Auto) 78.2 H Lymph % (Auto) 9.4 L [place] % (Auto) 6.7 Eos % (Auto) 4.3 Baso % (Auto) 0.7 Lymph # (Auto) 0.82 L [place] # (Auto) 0.6 Eos # (Auto) 0.4 H Baso # (Auto) 0.1 Abs Immat Gran (auto) 0.06 H Absolute Neuts (auto) 6.8 H Absolute Nucleated RBC 0.000 Band Neutrophils % Not Reportable Nucleated RBC % 0.0 Platelet Estimate Adequate Hypochromasia 1+ Anisocytosis Target Cells Schistocytes None seen Sodium Potassium Chloride Carbon Dioxide Anion Gap BUN Creatinine Estim Creat Clear Calc Estimated GFR Glucose POC Capillary Glucose 171 H Hemoglobin A1c 5.8 H Calcium Phosphorus Magnesium Erythropoietin 168.5 H Total Bilirubin AST ALT Alkaline Phosphatase Total Creatine Kinase 72 C-Reactive Protein 7.1 H NT-Pro-B Natriuret Pep Total Protein Albumin TSH (Reflex) 3.650 Urine Eosinophils U Random Total Protein Ur Random Sodium Ur Random Urea Urine Creatinine Protein/Creat Ratio 2 Complement C3 109 Complement C4 25.7 06/21/25 06/21/25 06/21/25 17:57 17:57 19:42 WBC RBC Hgb Hct MCV MCH MCHC RDW Plt Count MPV Immature Gran % (Auto) Neut % (Auto) Lymph % (Auto) [place] % (Auto) Eos % (Auto) Baso % (Auto) Lymph # (Auto) [place] # (Auto) Eos # (Auto) Baso # (Auto) Abs Immat Gran (auto) Absolute Neuts (auto) Absolute Nucleated RBC Band Neutrophils % Nucleated RBC % Platelet Estimate Hypochromasia Anisocytosis Target Cells Schistocytes Sodium Potassium Chloride Carbon Dioxide Anion Gap BUN Creatinine Estim Creat Clear Calc Estimated GFR Glucose POC Capillary Glucose 150 H Hemoglobin A1c Calcium Phosphorus Magnesium Erythropoietin Total Bilirubin AST ALT Alkaline Phosphatase Total Creatine Kinase C-Reactive Protein NT-Pro-B Natriuret Pep Total Protein Albumin TSH (Reflex) Urine Eosinophils None seen U Random Total Protein 48 Ur Random Sodium 85 Ur Random Urea 331 Urine Creatinine 33.3 33.3 Protein/Creat Ratio 2 1.44 H Complement C3 Complement C4 06/22/25 06/22/25 06/22/25 06:17 07:17 11:31 WBC 7.5 RBC 2.78 L Hgb 7.4 L Hct 25.1 L MCV 90.3 MCH 26.6 MCHC 29.5 L RDW 15.4 H Plt Count 132 L MPV 9.5 Immature Gran % (Auto) 0.9 H Neut % (Auto) 71.6 Lymph % (Auto) 12.7 L [place] % (Auto) 8.8 H Eos % (Auto) 5.2 H Baso % (Auto) 0.8 Lymph # (Auto) 0.96 [place] # (Auto) 0.7 H Eos # (Auto) 0.4 H Baso # (Auto) 0.1 Abs Immat Gran (auto) 0.07 H Absolute Neuts (auto) 5.4 Absolute Nucleated RBC 0.000 Band Neutrophils % Not Reportable Nucleated RBC % 0.0 Platelet Estimate Slightly decreased Hypochromasia 1+ Anisocytosis 1+ Target Cells Occasional Schistocytes None seen Sodium 136 L Potassium 3.3 L Chloride 88 L Carbon Dioxide 37 H Anion Gap 11 BUN 62 H Creatinine 1.83 H Estim Creat Clear Calc 66 Estimated GFR 28 L Glucose 148 H POC Capillary Glucose 133 H 163 H Hemoglobin A1c Calcium 7.9 L Phosphorus 3.5 Magnesium 1.7 Erythropoietin Total Bilirubin 0.5 AST 36 ALT 15 Alkaline Phosphatase 69 Total Creatine Kinase C-Reactive Protein NT-Pro-B Natriuret Pep 3500 H Total Protein 8.4 H Albumin 3.1 L TSH (Reflex) Urine Eosinophils U Random Total Protein Ur Random Sodium Ur Random Urea Urine Creatinine Protein/Creat Ratio 2 Complement C3 Complement C4
--- NOTE | 2025-06-22 12:46 | PM.PNCARD ---
Progress Note: A&P Assessment and Plan (1) Acute exacerbation of chronic heart failure: Code(s): I50.9 - Heart failure, unspecified <Ashley Wilsondavid [employer] DESIGNER-C - Last Filed: 06/22/25 12:55> Status: Acute <Ashley Lozoya [employer] DESIGNER-C - Last Filed: 06/22/25 12:55> (2) Acute non-ST elevation myocardial infarction (NSTEMI): Code(s): I21.4 - Non-ST elevation (NSTEMI) myocardial infarction <Ashley McgrathWhitney Devora, ROB[employer] DESIGNER-C - Last Filed: 06/22/25 12:55> Status: Acute <Ashley Wilsondavid [employer] DESIGNER-C - Last Filed: 06/22/25 12:55> (3) UTI (urinary tract infection): Code(s): N39.0 - Urinary tract infection, site not specified <Ashley AlcidesWhitney Lozoya [employer] DESIGNER-C - Last Filed: 06/22/25 12:55> Status: Acute <Ashley Wilsondavid ROB[employer] DESIGNER-C - Last Filed: 06/22/25 12:55> (4) Anemia: Qualifiers: Anemia type: unspecified type Qualified Code(s): D64.9 - Anemia, unspecified <Ashley McgrathWhitney Devora, ROB[employer] DESIGNER-C - Last Filed: 06/22/25 12:55> Code(s): D64.9 - Anemia, unspecified <Ashley AlcidesWhitney Lozoya ROB[employer] DESIGNER-C - Last Filed: 06/22/25 12:55> Status: Acute <Ashley AlcidesWhitney Devora, ROB[employer] DESIGNER-C - Last Filed: 06/22/25 12:55> (5) Acute hypoxemic respiratory failure: Code(s): J96.01 - Acute respiratory failure with hypoxia <Ashley Lozoya [employer] DESIGNER-C - Last Filed: 06/22/25 12:55> Status: Acute <Ashley AlcidesWhitney Lozoya [employer] DESIGNER-C - Last Filed: 06/22/25 12:55> (6) Pneumonia: Code(s): J18.9 - Pneumonia, unspecified organism <Ashley Lozoya [employer] DESIGNER-C - Last Filed: 06/22/25 12:55> Status: Acute <YOBANI Yanes - Last Filed: 06/22/25 12:55> Assessment and Plan: Elevated troponin. Flat at 0.581 and 0.502-most likely represent demand ischemia in setting of hypoxemia and anemia. EKG no acute ST/T wave changes. She had MPI at OSH 10/19/24 per EPIC review that demonstrated no obvious ischemia. Will update echo to look for any new LV dysfunction or WMA. Continue rosuvastatin 20 mg daily and coreg 12.5 mg BID. No ischemic w/u planned at this time CHF-acute on chronic diastolic HF. Echo at OSH showed EF of 60% with grade III diastolic dysfunction, mild MR and mild TR. On admission her pBNP was 9940 and her CXR demonstrated cardiomegaly with pulmonary vascular congestion. Will continue on IV lasix BID today - renal function stable today. Follow up pBNP 3500. Perhaps shift to p.o. diuresis tomorrow. Will need accurate intake and output. Repeat echo shows preserved LV systolic function. Pneumonia/UTI-antibiotic therapy as per primary team CRISTA-appears baseline Cr. is around 1 per OSH EPIC review. Will monitor closely with diuresis. Anemia with Hgb of 6.6 on admission-GI is following given anemia and occult positive stool. Will await further recommendation Acute hypoxic respiratory failure-most likely secondary to obesity hypoventilation syndrome compounded by pneumonia. Continue O2 support. BIPAP for all sleep Chronic lymphedema of bilateral LE. Reports edema more significant than normal. will monitor with diuresis. May benefit from compression AMANDA-BIPAP for all sleep Morbid Obesity and bed bound <YOBANI Yanes - Last Filed: 06/22/25 12:55> Elevated troponin. Flat at 0.581 and 0.502-most likely represent demand ischemia in setting of hypoxemia and anemia. EKG no acute ST/T wave changes. She had MPI at OSH 10/19/24 per EPIC review that demonstrated no obvious ischemia. Echo shows normal LVEF with no RWMA. Continue rosuvastatin 20 mg daily and coreg 12.5 mg BID. No ischemic w/u planned at this time CHF-acute on chronic diastolic HF. On admission her pBNP was 9940 and her CXR demonstrated cardiomegaly with pulmonary vascular congestion. TTE with normal LVEF, mild to moderate TR, enlarged RV with depressed RV function. Will continue on IV lasix BID today - renal function stable today. Follow up pBNP 3500. Shift to p.o. diuresis tomorrow. Will need accurate intake and output. Pneumonia/UTI-antibiotic therapy as per primary team CRISTA-appears baseline Cr. is around 1 per OSH EPIC review. Will monitor closely with diuresis. Anemia with Hgb of 6.6 on admission-GI is following given anemia and occult positive stool. Will await further recommendation Acute hypoxic respiratory failure-most likely secondary to obesity hypoventilation syndrome compounded by pneumonia. Continue O2 support. BIPAP for all sleep Chronic lymphedema of bilateral LE. Reports edema more significant than normal. will monitor with diuresis. May benefit from compression AMANDA-BIPAP for all sleep Morbid Obesity and bed bound <Anita Wren MD - Last Filed: 06/23/25 06:27> Subjective Date/time seen: 06/22/25 12:46 <YOBANI Yanes - Last Filed: 06/22/25 12:55> Interval history: 06/21/25-Patient is sitting up in bed c/o pain in back and legs. No chest pain or SOB at this time. No reports of any bloody stools per patient 06/22/2025: States she is feeling better today than yesterday. Breathing is better. No chest pain. <YOBANI Yanes - Last Filed: 06/22/25 12:55> Review of Systems Review of Systems: All systems reviewed & are unremarkable except as noted in HPI and below <YOBANI Yanes - Last Filed: 06/22/25 12:55> Exam Const: General: comfortable <YOBANI Yanes - Last Filed: 06/22/25 12:55> Other: morbidly obese <YOBANI Yanes - Last Filed: 06/22/25 12:55> Neck: Neck: supple and no JVD <YOBANI Yanes - Last Filed: 06/22/25 12:55> Resp: Auscultation: diminished lung sounds <YOBANI Yanes - Last Filed: 06/22/25 12:55> Cardio: Rate: regular rate <YOBANI Yanes - Last Filed: 06/22/25 12:55> Rhythm: regular rhythm <YOBANI Yanes - Last Filed: 06/22/25 12:55> Neuro: Speech: normal speech <YOBANI Yanes - Last Filed: 06/22/25 12:55> Extrem: General: edema <OYBANI Yanes - Last Filed: 06/22/25 12:55> Other: chronic lymphedema <YOBANI Yanes - Last Filed: 06/22/25 12:55> Psych: Mental Status: mental status grossly normal <YOBANI Yanes - Last Filed: 06/22/25 12:55> Objective Data Vital Signs Vital Signs: Vital Signs - 24 hr 06/21/25 14:00 06/21/25 16:00 06/21/25 16:00 Temperature 36.8 C Pulse Rate 70 74 72 Respiratory Rate 20 18 Blood Pressure 132/51 L Pulse Oximetry 97 95 Oxygen Delivery High Flow Nasal Cannula Oxygen Flow Rate 3 Fraction of Inspired Oxygen 06/21/25 16:00 06/21/25 16:30 06/21/25 16:31 Temperature Pulse Rate 74 71 72 Respiratory Rate 20 Blood Pressure Pulse Oximetry 97 Oxygen Delivery Nasal Cannula Oxygen Flow Rate 3 Fraction of Inspired Oxygen 06/21/25 16:35 06/21/25 18:00 06/21/25 20:00 Temperature Pulse Rate 74 74 Respiratory Rate 20 Blood Pressure Pulse Oximetry 96 Oxygen Delivery BiPAP Oxygen Flow Rate Fraction of Inspired Oxygen 32 06/21/25 20:00 06/21/25 20:25 06/21/25 20:25 Temperature Pulse Rate 67 66 Respiratory Rate 15 Blood Pressure Pulse Oximetry 99 Oxygen Delivery BiPAP Oxygen Flow Rate Fraction of Inspired Oxygen 32 06/21/25 20:27 06/21/25 20:33 06/21/25 21:13 Temperature Pulse Rate 66 67 67 Respiratory Rate 15 15 Blood Pressure Pulse Oximetry 99 Oxygen Delivery BiPAP Oxygen Flow Rate Fraction of Inspired Oxygen 06/21/25 23:39 06/22/25 00:00 06/22/25 00:57 Temperature 36.3 C L Pulse Rate 70 78 66 Respiratory Rate 24 H 22 H Blood Pressure 116/51 L Pulse Oximetry 98 Oxygen Delivery Oxygen Flow Rate Fraction of Inspired Oxygen 06/22/25 00:57 06/22/25 01:05 06/22/25 04:00 Temperature Pulse Rate 66 69 75 Respiratory Rate 22 H 22 H Blood Pressure Pulse Oximetry 99 Oxygen Delivery BiPAP Oxygen Flow Rate Fraction of Inspired Oxygen 06/22/25 04:27 06/22/25 04:28 06/22/25 04:34 Temperature Pulse Rate 76 66 76 Respiratory Rate 22 H 19 22 H Blood Pressure Pulse Oximetry 99 Oxygen Delivery BiPAP Oxygen Flow Rate Fraction of Inspired Oxygen 06/22/25 07:19 06/22/25 08:00 06/22/25 08:00 Temperature 36.6 C Pulse Rate 74 78 Respiratory Rate 24 H Blood Pressure 122/60 Pulse Oximetry 98 98 Oxygen Delivery Oxygen Flow Rate 3 Fraction of Inspired Oxygen 06/22/25 08:31 06/22/25 08:32 06/22/25 08:40 Temperature Pulse Rate 78 78 76 Respiratory Rate 20 20 Blood Pressure Pulse Oximetry 96 Oxygen Delivery Nasal Cannula Oxygen Flow Rate 3 Fraction of Inspired Oxygen 06/22/25 08:58 06/22/25 11:59 06/22/25 12:00 Temperature 36.6 C Pulse Rate 78 75 73 Respiratory Rate 19 Blood Pressure 132/58 L Pulse Oximetry 98 Oxygen Delivery Oxygen Flow Rate Fraction of Inspired Oxygen 06/22/25 12:07 06/22/25 12:30 06/22/25 12:31 Temperature Pulse Rate 74 71 71 Respiratory Rate 23 H 24 H 23 H Blood Pressure Pulse Oximetry 95 Oxygen Delivery BiPAP Oxygen Flow Rate Fraction of Inspired Oxygen <YOBANI Yanes - Last Filed: 06/22/25 12:55> Intake/Output Intake/Output: Intake & Output 06/19/25 06/20/25 06/21/25 06/22/25 23:59 23:59 23:59 23:59 Intake Total 650 1740 2955 1140 Output Total 1600 2200 850 Balance 650 140 755 290 <YOBANI Yanes - Last Filed: 06/22/25 12:55> Meds/Results Medications: Active Medications Generic Name Dose Route Start Last Admin Trade Name Jhonq PRN Reason Stop Dose Admin Acetaminophen 650 mg 06/19/25 15:05 06/21/25 10:24 Acetaminophen 325 Mg Tablet PO 650 mg Q4H PRN Administration Mild Pain (1-3) or Fever Albuterol/Ipratropium 3 ml 06/19/25 21:10 06/22/25 12:07 Ipratropium 0.5 Mg/Albuterol Sulfate 2.5 Mg Ampul.Neb 3 Ml INHALATION 3 ml Q4HRT [facility] Administration Carvedilol 12.5 mg 06/20/25 09:00 06/22/25 08:58 Carvedilol 12.5 Mg Tablet PO 12.5 mg Q12HR [facility] Administration Dextrose 12.5 gm 06/19/25 22:22 Dextrose 50% 25 Gm/50 Ml Syringe IV PUSH PRN PRN Hypoglycemia Protocol Doxepin HCl 25 mg 06/19/25 22:30 06/21/25 21:13 Doxepin Hcl 25 Mg Capsule PO 25 mg HS [facility] Administration Doxycycline Hyclate 100 mg 06/21/25 21:00 06/22/25 08:58 Doxycycline Hyclate 100 Mg Tablet PO 06/24/25 09:01 100 mg Q12HR [facility] Administration Fluoxetine HCl 40 mg 06/20/25 09:00 06/22/25 08:58 Fluoxetine Hcl 20 Mg Capsule PO 40 mg DAILY [facility] Administration Furosemide 20 mg 06/21/25 17:00 06/22/25 08:58 Furosemide 20 Mg Tablet PO 20 mg BID [facility] Administration Glucose 15 gm 06/19/25 22:22 Glucose Oral Gel 15 Gm Of Glucse In 37.5 Gm Tube PO PRN PRN Hypoglycemia Protocol Cefepime HCl 2 gm/ Sodium 50 mls @ 100 mls/hr 06/19/25 22:00 06/22/25 05:46 Chloride IVPB Infused Q8HR [facility] Infusion Dextrose 1,000 mls @ 100 mls/hr 06/19/25 22:22 Dextrose 5% 1,000 Ml IVPB PRN PRN Hypoglycemia Protocol Vancomycin HCl 1,500 mg in 500 mls @ 250 mls/hr 06/21/25 04:00 06/22/25 01:08 Vancomycin 1,500 Mg/Ns 500 Ml IVPB Infused Q18H [facility] Infusion Insulin Aspart 2 - 5 units 06/20/25 12:00 06/22/25 12:08 Insulin Aspart (*Bkc) 100 Units/Ml SUB-Q Not Given [facility] Protocol Insulin Aspart 1 - 2 units 06/20/25 21:00 06/21/25 20:14 Insulin Aspart (*Bkc) 100 Units/Ml SUB-Q Not Given [facility] Protocol Metronidazole 500 mg 06/21/25 22:00 06/22/25 05:16 Metronidazole 500 Mg Tablet PO 06/26/25 14:01 500 mg Q8HR [facility] Administration Mupirocin 1 applic 06/19/25 21:00 06/22/25 08:58 Mupirocin 2% Oint 22 Gm Tube EACH NARE 06/24/25 09:01 1 applic Q12HR [facility] Administration Ondansetron HCl 4 mg 06/19/25 15:05 06/19/25 20:36 Ondansetron Inj 4 Mg/2 Ml Vial IV PUSH 4 mg Q4H PRN Administration Nausea Pantoprazole Sodium 40 mg 06/22/25 09:00 06/22/25 08:57 Pantoprazole 40 Mg Tablet PO 40 mg QAM [facility] Administration <YOBANI Yanes - Last Filed: 06/22/25 12:55> Radiology Results: ITS Impressions Chest X-Ray 06/19/25 12:09 IMPRESSION: 1. Cardiomegaly with pulmonary vascular congestion. 2. Opacities in the left mid and lower lung zones which could represent atelectasis and/or pneumonia. 3. Elevation of the right hemidiaphragm. Venous Doppler Study 06/20/25 16:52 Impression: 1: Lower extremity venous structures not visualized due to body habitus. Cannot exclude deep venous thrombosis. Renal Ultrasound 06/20/25 17:00 Impression: 1: Limited study due to patient body habitus. No significant abnormality of the right kidney identified. Left kidney not visualized. <YOBANI Yanes - Last Filed: 06/22/25 12:55> Labs Labs: Laboratory Results - last 24 hr 06/20/25 06/21/25 06/21/25 03:11 16:12 17:53 WBC 8.7 RBC 2.76 L Hgb 7.3 L Hct 24.8 L MCV 89.9 MCH 26.4 MCHC 29.4 L RDW 15.4 H Plt Count 131 L MPV 9.6 Immature Gran % (Auto) 0.7 H Neut % (Auto) 78.2 H Lymph % (Auto) 9.4 L [place] % (Auto) 6.7 Eos % (Auto) 4.3 Baso % (Auto) 0.7 Lymph # (Auto) 0.82 L [place] # (Auto) 0.6 Eos # (Auto) 0.4 H Baso # (Auto) 0.1 Abs Immat Gran (auto) 0.06 H Absolute Neuts (auto) 6.8 H Absolute Nucleated RBC 0.000 Band Neutrophils % Not Reportable Nucleated RBC % 0.0 Platelet Estimate Adequate Hypochromasia 1+ Anisocytosis Target Cells Schistocytes None seen Sodium Potassium Chloride Carbon Dioxide Anion Gap BUN Creatinine Estim Creat Clear Calc Estimated GFR Glucose POC Capillary Glucose 171 H Hemoglobin A1c 5.8 H Calcium Phosphorus Magnesium Erythropoietin 168.5 H Total Bilirubin AST ALT Alkaline Phosphatase Total Creatine Kinase 72 C-Reactive Protein 7.1 H NT-Pro-B Natriuret Pep Total Protein Albumin TSH (Reflex) 3.650 Urine Eosinophils U Random Total Protein Ur Random Sodium Ur Random Urea Urine Creatinine Protein/Creat Ratio 2 Complement C3 109 Complement C4 25.7 06/21/25 06/21/25 06/21/25 17:57 17:57 19:42 WBC RBC Hgb Hct MCV MCH MCHC RDW Plt Count MPV Immature Gran % (Auto) Neut % (Auto) Lymph % (Auto) [place] % (Auto) Eos % (Auto) Baso % (Auto) Lymph # (Auto) [place] # (Auto) Eos # (Auto) Baso # (Auto) Abs Immat Gran (auto) Absolute Neuts (auto) Absolute Nucleated RBC Band Neutrophils % Nucleated RBC % Platelet Estimate Hypochromasia Anisocytosis Target Cells Schistocytes Sodium Potassium Chloride Carbon Dioxide Anion Gap BUN Creatinine Estim Creat Clear Calc Estimated GFR Glucose POC Capillary Glucose 150 H Hemoglobin A1c Calcium Phosphorus Magnesium Erythropoietin Total Bilirubin AST ALT Alkaline Phosphatase Total Creatine Kinase C-Reactive Protein NT-Pro-B Natriuret Pep Total Protein Albumin TSH (Reflex) Urine Eosinophils None seen U Random Total Protein 48 Ur Random Sodium 85 Ur Random Urea 331 Urine Creatinine 33.3 33.3 Protein/Creat Ratio 2 1.44 H Complement C3 Complement C4 06/22/25 06/22/25 06/22/25 06:17 07:17 11:31 WBC 7.5 RBC 2.78 L Hgb 7.4 L Hct 25.1 L MCV 90.3 MCH 26.6 MCHC 29.5 L RDW 15.4 H Plt Count 132 L MPV 9.5 Immature Gran % (Auto) 0.9 H Neut % (Auto) 71.6 Lymph % (Auto) 12.7 L [place] % (Auto) 8.8 H Eos % (Auto) 5.2 H Baso % (Auto) 0.8 Lymph # (Auto) 0.96 [place] # (Auto) 0.7 H Eos # (Auto) 0.4 H Baso # (Auto) 0.1 Abs Immat Gran (auto) 0.07 H Absolute Neuts (auto) 5.4 Absolute Nucleated RBC 0.000 Band Neutrophils % Not Reportable Nucleated RBC % 0.0 Platelet Estimate Slightly decreased Hypochromasia 1+ Anisocytosis 1+ Target Cells Occasional Schistocytes None seen Sodium 136 L Potassium 3.3 L Chloride 88 L Carbon Dioxide 37 H Anion Gap 11 BUN 62 H Creatinine 1.83 H Estim Creat Clear Calc 66 Estimated GFR 28 L Glucose 148 H POC Capillary Glucose 133 H 163 H Hemoglobin A1c Calcium 7.9 L Phosphorus 3.5 Magnesium 1.7 Erythropoietin Total Bilirubin 0.5 AST 36 ALT 15 Alkaline Phosphatase 69 Total Creatine Kinase C-Reactive Protein NT-Pro-B Natriuret Pep 3500 H Total Protein 8.4 H Albumin 3.1 L TSH (Reflex) Urine Eosinophils U Random Total Protein Ur Random Sodium Ur Random Urea Urine Creatinine Protein/Creat Ratio 2 Complement C3 Complement C4 <YOBANI Yanes - Last Filed: 06/22/25 12:55>
--- NOTE | 2025-06-22 14:19 | P.PNNP_ITS ---
Progress Note: A&P Assessment and Plan (1) Acute kidney injury: Code(s): N17.9 - Acute kidney failure, unspecified Status: Acute Assessment and Plan: * improvement noted * as noted on admisson (creatinine of 1.92mg/dL) * suspect multifactorial etiology: * anemia * CHF exacerbation * infection (pneumonia +/- UTI) * hypoxia * need for diuretic therapy * chronic quevedo catheter (?) * other (?) * evaluation to date noted * renal ultrasound noted (limited results) * urine electrolytes slightly prerenal (by FeUrea) * UA suggestive of infection * urine eosinophils negative * CPK normal * moderate proteinuria * still making urine (albeit with diuretics) and no critical electrolytes * follow trend of repeat labs and UOP (2) Stage 3 chronic kidney disease: Code(s): N18.30 - Chronic kidney disease, stage 3 unspecified Status: Chronic Assessment and Plan: * baseline creatinine runs around 1.1 - 1.6mg/dL since August 2024 * however, has been as low as 0.99mg/dL * noted fluctuations noted with acute hospitalizations... * on last hospital discharge ([facility]), creatinine was 1.43mg/dL * this causes her to bounce between CKD stage 3A and stage 3B * presumably secondary to diabetes, hypertension, CHF + diuretic therapy, vascular disease, and obesiry (3) Acute on chronic hypoxic respiratory failure: Code(s): J96.21 - Acute and chronic respiratory failure with hypoxia Status: Acute Assessment and Plan: * acute respiratory failure due to: * CHF exacerbation * anemia * possible pneumonia * other (?) * chronic component due to: * OHS * AMANDA * COPD(?) * chronic CHF * bed-bound status(?) * known baseline oxygen requirement of 3L by NC while awake and BiPAP during naps and sleep. * admission XR noted: * cardiomegaly with pulmonary vascular congestion, opacities in the left mid and lower lung zones which could represent atelectasis and/or pneumonia * viral testing for influenza/RSV/COVID negative * follow-up on urine antigens * continue current therapy as outlined (4) Acute on chronic diastolic heart failure: Code(s): I50.33 - Acute on chronic diastolic (congestive) heart failure Status: Acute Assessment and Plan: * as suggested by admission testing and exam * BNP 9940 * CXR with pulmonary vascular congestion with cardiomegaly * symptoms of shortness of breath * Echo (on 06/20) noted: * normal left ventricular size with well-preserved systolicfunction of 65 - 70% * mildly sclerotic aortic valve which is not stenotic * mild mitral annular calcification * mild to moderate tricuspid regurgitation * Moderate pulmonary hypertension, estimated pulmonary arterial systolic pressure is 54 mmHg * on IV lasix * follow I/Os and daily weights * Cardiology following (5) Pneumonia: Code(s): J18.9 - Pneumonia, unspecified organism Status: Acute Assessment and Plan: * suspected based on admission CXR * follow culture data - negative to date * on antibiotics * follow respiratory status (6) Anemia: Qualifiers: Anemia type: unspecified type Qualified Code(s): D64.9 - Anemia, unspecified Code(s): D64.9 - Anemia, unspecified Status: Acute Assessment and Plan: * acute on chronic * Hgb 6.5 on admission * Hgb down to 6.8 on 06/21 * PRBC transfusion per protocol - 2 units so far this admission * noted hemoccult positive stool * anemia studies c/w iron deficiency * GI recommendations noted -- high risk for EGD; conservative therapy * follow trend of H/H (7) UTI (urinary tract infection): Code(s): N39.0 - Urinary tract infection, site not specified Status: Acute Assessment and Plan: * admission UA suggestive * on antibiotics * unfortunately - no urine culture done (8) Diabetes: Code(s): E11.9 - Type 2 diabetes mellitus without complications Status: Acute Assessment and Plan: * follow accu-cheks * glycemic control per hospitalist Will continue to follow. L Subjective Date/time seen: 06/22/25 14:19 Interval history: Follow-up for acute kidney injury/acute renal failure on chronic kidney disease. States that her breathing has improved if not stabilized in the last 24 hours; renal function/creatinine has somewhat improved as well; no other acute issues/events overnight or earier this morning; noted increased cough since last night. Exam 2 Narrative: General: large female in NAD Heart: normal S1 and S2; no rub Lungs: clear anteriorly; decreased at bases Abdomen: obese but soft, nontender, nondistended, positive bowel sounds Extremities: no cyanosis or clubbing; chronic edema Skin: + lymphedema changes present Objective Data Vital Signs Vital Signs: Vital Signs Temp Pulse Resp BP Pulse Ox O2 Del Method O2 Flow Rate 06/22/25 14:00 97.8 F 75 20 132/60 99 06/22/25 12:31 71 23 H 95 BiPAP 06/22/25 12:30 71 24 H 06/22/25 12:07 74 23 H 06/22/25 12:00 73 06/22/25 11:59 98 F 75 19 132/58 L 98 06/22/25 08:58 78 06/22/25 08:40 76 20 06/22/25 08:32 78 96 Nasal Cannula 3 06/22/25 08:31 78 20 06/22/25 08:00 98 3 06/22/25 08:00 78 06/22/25 07:19 97.9 F 74 24 H 122/60 98 06/22/25 04:34 76 22 H 06/22/25 04:28 66 19 99 BiPAP 06/22/25 04:27 76 22 H 06/22/25 04:00 75 06/22/25 01:05 69 22 H 06/22/25 00:57 66 22 H 99 BiPAP 06/22/25 00:57 66 22 H 06/22/25 00:00 78 06/21/25 23:39 97.4 F L 70 24 H 116/51 L 98 06/21/25 21:13 67 06/21/25 20:33 67 15 06/21/25 20:27 66 15 99 BiPAP 06/21/25 20:25 99 BiPAP 06/21/25 20:25 66 15 06/21/25 20:00 67 06/21/25 20:00 96 BiPAP 06/21/25 18:00 74 Intake/Output Intake/Output: Intake & Output 06/19/25 06/20/25 06/21/25 06/22/25 23:59 23:59 23:59 23:59 Intake Total 650 1740 2955 1380 Output Total 1600 2200 2750 Balance 650 140 755 -1370 Meds/Results Medications: Active Medications Generic Name Dose Route Start Last Admin Trade Name Freq PRN Reason Stop Dose Admin Acetaminophen 650 mg 06/19/25 15:05 06/21/25 10:24 Acetaminophen 325 Mg Tablet PO 650 mg Q4H PRN Administration Mild Pain (1-3) or Fever Albuterol/Ipratropium 3 ml 06/19/25 21:10 06/22/25 16:16 Ipratropium 0.5 Mg/Albuterol Sulfate 2.5 Mg Ampul.Neb 3 Ml INHALATION 3 ml Q4HRT HIPOLITO Administration Carvedilol 12.5 mg 06/20/25 09:00 06/22/25 08:58 Carvedilol 12.5 Mg Tablet PO 12.5 mg Q12HR HIPOLITO Administration Dextrose 12.5 gm 06/19/25 22:22 Dextrose 50% 25 Gm/50 Ml Syringe IV PUSH PRN PRN Hypoglycemia Protocol Doxepin HCl 25 mg 06/19/25 22:30 06/21/25 21:13 Doxepin Hcl 25 Mg Capsule PO 25 mg HS HIPOLITO Administration Doxycycline Hyclate 100 mg 06/21/25 21:00 06/22/25 08:58 Doxycycline Hyclate 100 Mg Tablet PO 06/24/25 09:01 100 mg Q12HR HIPOLITO Administration Fluoxetine HCl 40 mg 06/20/25 09:00 06/22/25 08:58 Fluoxetine Hcl 20 Mg Capsule PO 40 mg DAILY HIPOLITO Administration Furosemide 20 mg 06/21/25 17:00 06/22/25 16:49 Furosemide 20 Mg Tablet PO 20 mg BID HIPOLITO Administration Glucose 15 gm 06/19/25 22:22 Glucose Oral Gel 15 Gm Of Glucse In 37.5 Gm Tube PO PRN PRN Hypoglycemia Protocol Cefepime HCl 2 gm/ Sodium 50 mls @ 100 mls/hr 06/19/25 22:00 06/22/25 14:11 Chloride IVPB 100 mls/hr Q8HR HIPOLITO Administration Dextrose 1,000 mls @ 100 mls/hr 06/19/25 22:22 Dextrose 5% 1,000 Ml IVPB PRN PRN Hypoglycemia Protocol Vancomycin HCl 1,250 mg in 250 mls @ 166.667 mls/hr 06/23/25 10:00 Vancomycin 1,250 Mg/Ns 250 Ml IVPB Q24H HIPOLITO Insulin Aspart 2 - 5 units 06/20/25 12:00 06/22/25 16:48 Insulin Aspart (*Bkc) 100 Units/Ml SUB-Q Not Given TIDWM HIPOLITO Protocol Insulin Aspart 1 - 2 units 06/20/25 21:00 06/21/25 20:14 Insulin Aspart (*Bkc) 100 Units/Ml SUB-Q Not Given [facility] Protocol Metronidazole 500 mg 06/21/25 22:00 06/22/25 14:12 Metronidazole 500 Mg Tablet PO 06/26/25 14:01 500 mg Q8HR HIPOLITO Administration Mupirocin 1 applic 06/19/25 21:00 06/22/25 08:58 Mupirocin 2% Oint 22 Gm Tube EACH NARE 06/24/25 09:01 1 applic Q12HR HIPOLITO Administration Ondansetron HCl 4 mg 06/19/25 15:05 06/19/25 20:36 Ondansetron Inj 4 Mg/2 Ml Vial IV PUSH 4 mg Q4H PRN Administration Nausea Pantoprazole Sodium 40 mg 06/22/25 09:00 06/22/25 08:57 Pantoprazole 40 Mg Tablet PO 40 mg QAM HIPOLITO Administration Radiology Results: ITS Impressions Chest X-Ray 06/19/25 12:09 IMPRESSION: 1. Cardiomegaly with pulmonary vascular congestion. 2. Opacities in the left mid and lower lung zones which could represent atelectasis and/or pneumonia. 3. Elevation of the right hemidiaphragm. Venous Doppler Study 06/20/25 16:52 Impression: 1: Lower extremity venous structures not visualized due to body habitus. Cannot exclude deep venous thrombosis. Renal Ultrasound 06/20/25 17:00 Impression: 1: Limited study due to patient body habitus. No significant abnormality of the right kidney identified. Left kidney not visualized. Labs Labs: Vital Signs Laboratory Tests 06/22/25 06:17 06/22/25 06:17 Calcium 7.9 L Phosphorus 3.5 Magnesium 1.7 Total Bilirubin 0.5 AST 36 ALT 15 Alkaline Phosphatase 69 NT-Pro-B Natriuret Pep 3500 H Total Protein 8.4 H Albumin 3.1 L Microbiology 06/19/25 13:57 Blood Blood Culture - Preliminary 06/19/25 14:17 Blood Blood Culture - Preliminary
[2025-06-22] MEDS: DOXEPIN HCL 25 MG CAPSULE PO (22:29)
[2025-06-23] VITALS (19 sets, daily range): BP systolic 134–145; BP diastolic 50–63; PULSE 68–76; RESP 16–30; TEMP 36.7–36.8; O2SAT 97–99
[2025-06-23] MEDS: IPRATROPIUM 0.5 MG/ALBUTEROL SULFATE 2.5 MG AMPUL.NEB 3 ML INHALATION ×3 (01:30→13:26)
[2025-06-23 03:58] LABS: Hematocrit 24.5 % (37.0-47.0); Hemoglobin 7.3 g/dL (12.0-15.0); Immature Granulocyte Percent A 0.7 % (0-0.5); Lymphocytes Absolute Auto 0.95 K/mm3 (0.9-3.2); Mean Corpuscular HGB Conc 29.8 g/dl (32-36); Mean Corpuscular Hemoglobin 26.4 pg (26-34); Mean Corpuscular Volume 88.8 fl (80-100); Nucleated Red Blood Cells Absolute Auto 0.000 K/mm3 (0.0-0.012); Nucleated Red Blood Cells Perc 0.0 % (0.0-0.2); Platelet Count Result 126 k/mm3 (150-375); Red Blood Count 2.76 M/mm3 (4.2-5.4); White Blood Count 6.8 K/mm3 (4.5-10.0)
[2025-06-23 04:24] LABS: Blood Urea Nitrogen 54 mg/dL (7-17); Calcium 8.1 mg/dL (8.4-10.2); Carbon Dioxide > 40 mmol/L (22-30); Chloride 86 mmol/L (98-107); Estimated CRCL calculation 74 ml/min; Estimated Glomerular Filt Rate 32; Glucose 162 mg/dL (65-110); Magnesium 1.6 mg/dL (1.6-2.3); Potassium 3.2 mmol/L (3.4-5.0); Sodium 135 mmol/L (137-145)
[2025-06-23 04:30] LABS: Hypochromasia 2+; Schistocytes None Seen
[2025-06-23] MEDS: CEFEPIME 2 GM in SODIUM CHLORIDE 0.9% IV 50 ML 100 ML IVPB ×3 (05:30→22:47)
[2025-06-23] MEDS: VANCOMYCIN 1,250 MG/NS 250 ML 1,250 MG/250 ML BAG 166.67 MG IVPB (09:41)
[2025-06-23] MEDS: FUROSEMIDE 20 MG TABLET PO ×2 (09:41→16:37)
[2025-06-23] MEDS: DOXYCYCLINE HYCLATE 100 MG TABLET PO ×2 (09:41→22:46)
[2025-06-23] MEDS: PANTOPRAZOLE 40 MG TABLET PO (09:41)
[2025-06-23] MEDS: MUPIROCIN 2% OINT 22 GM TUBE 1 APPLIC EACH NARE ×2 (09:49→22:47)
--- NOTE | 2025-06-23 10:13 | P.PNNP_ITS ---
Progress Note: A&P Assessment and Plan (1) Acute kidney injury: Code(s): N17.9 - Acute kidney failure, unspecified Status: Acute Assessment and Plan: * improvement noted * as noted on admisson (creatinine of 1.92mg/dL) * suspect multifactorial etiology: * anemia * CHF exacerbation * infection (pneumonia +/- UTI) * hypoxia * need for diuretic therapy * chronic quevedo catheter (?) * other (?) * evaluation to date noted * renal ultrasound noted (limited results) * urine electrolytes slightly prerenal (by FeUrea) * UA suggestive of infection * urine eosinophils negative * CPK normal * moderate proteinuria * still making urine (albeit with diuretics) and no critical electrolytes * follow trend of repeat labs and UOP (2) Stage 3 chronic kidney disease: Code(s): N18.30 - Chronic kidney disease, stage 3 unspecified Status: Chronic Assessment and Plan: * baseline creatinine runs around 1.1 - 1.6mg/dL since August 2024 * however, has been as low as 0.99mg/dL * noted fluctuations noted with acute hospitalizations... * on last hospital discharge ([facility]), creatinine was 1.43mg/dL * this causes her to bounce between CKD stage 3A and stage 3B * presumably secondary to diabetes, hypertension, CHF + diuretic therapy, vascular disease, and obesiry (3) Acute on chronic hypoxic respiratory failure: Code(s): J96.21 - Acute and chronic respiratory failure with hypoxia Status: Acute Assessment and Plan: * acute respiratory failure due to: * CHF exacerbation * anemia * possible pneumonia * other (?) * chronic component due to: * OHS * AMANDA * COPD(?) * chronic CHF * bed-bound status(?) * known baseline oxygen requirement of 3L by NC while awake and BiPAP during naps and sleep. * admission XR noted: * cardiomegaly with pulmonary vascular congestion, opacities in the left mid and lower lung zones which could represent atelectasis and/or pneumonia * viral testing for influenza/RSV/COVID negative * follow-up on urine antigens * continue current therapy as outlined (4) Acute on chronic diastolic heart failure: Code(s): I50.33 - Acute on chronic diastolic (congestive) heart failure Status: Acute Assessment and Plan: * as suggested by admission testing and exam * BNP 9940 * CXR with pulmonary vascular congestion with cardiomegaly * symptoms of shortness of breath * Echo (on 06/20) noted: * normal left ventricular size with well-preserved systolicfunction of 65 - 70% * mildly sclerotic aortic valve which is not stenotic * mild mitral annular calcification * mild to moderate tricuspid regurgitation * Moderate pulmonary hypertension, estimated pulmonary arterial systolic pressure is 54 mmHg * on IV lasix * follow I/Os and daily weights * Cardiology following (5) Pneumonia: Code(s): J18.9 - Pneumonia, unspecified organism Status: Acute Assessment and Plan: * suspected based on admission CXR * noted productive cough (with reported green sputum) * follow culture data - negative to date * on antibiotics * follow respiratory status (6) Anemia: Qualifiers: Anemia type: unspecified type Qualified Code(s): D64.9 - Anemia, unspecified Code(s): D64.9 - Anemia, unspecified Status: Acute Assessment and Plan: * acute on chronic * Hgb 6.5 on admission * Hgb down to 6.8 on 06/21 * PRBC transfusion per protocol - 2 units so far this admission * noted hemoccult positive stool * anemia studies c/w iron deficiency * GI recommendations noted -- high risk for EGD; conservative therapy * follow trend of H/H (7) UTI (urinary tract infection): Code(s): N39.0 - Urinary tract infection, site not specified Status: Acute Assessment and Plan: * admission UA suggestive * on antibiotics * unfortunately - no urine culture done (8) Diabetes: Code(s): E11.9 - Type 2 diabetes mellitus without complications Status: Acute Assessment and Plan: * follow accu-cheks * glycemic control per hospitalist Will continue to follow. L Subjective Date/time seen: 06/23/25 10:13 Interval history: Follow-up for acute kidney injury/acute renal failure on chronic kidney disease. Renal function/creatinine improving despite ongoing diuretic use with reasonable urine output noted; reports respiratory status/breathing is doing better with no complaints of shortness of breath at the time of my visit; + productive cough noted; no other issues/events overnight or earlier this morning. Exam 2 Narrative: General: large female in NAD Heart: normal S1 and S2; no rub Lungs: clear anteriorly; decreased at bases Abdomen: obese but soft, nontender, nondistended, positive bowel sounds Extremities: no cyanosis or clubbing; chronic edema Skin: + lymphedema changes noted Objective Data Vital Signs Vital Signs: Vital Signs Temp Pulse Resp BP Pulse Ox O2 Del Method O2 Flow Rate 06/23/25 09:41 76 06/23/25 08:01 97 Nasal Cannula 3 06/23/25 08:00 75 06/23/25 08:00 98.3 F 73 23 H 139/51 L 97 06/23/25 07:31 76 16 06/23/25 07:20 72 16 06/23/25 07:20 72 16 99 BiPAP 06/23/25 04:45 72 19 99 BiPAP 06/23/25 04:00 72 06/23/25 01:45 70 21 H 06/23/25 01:30 69 23 H 06/23/25 01:30 69 23 H 97 BiPAP 06/23/25 00:00 70 06/22/25 23:52 97.8 F 72 20 130/52 L 97 06/22/25 22:29 72 06/22/25 22:16 103 H 20 99 BiPAP 06/22/25 22:00 74 20 97 BiPAP 06/22/25 20:20 98 20 06/22/25 20:09 103 H 20 06/22/25 20:09 103 H 99 Nasal Cannula 3 06/22/25 20:00 75 06/22/25 16:18 75 20 06/22/25 16:00 75 06/22/25 16:00 97.8 F 75 20 132/60 99 Intake/Output Intake/Output: Intake & Output 06/20/25 06/21/25 06/22/25 06/23/25 23:59 23:59 23:59 23:59 Intake Total 1740 2955 1720 410 Output Total 1600 2200 4150 5050 Balance 140 839 -8872 -3108 Meds/Results Medications: Active Medications Generic Name Dose Route Start Last Admin Trade Name Freq PRN Reason Stop Dose Admin Acetaminophen 650 mg 06/19/25 15:05 06/21/25 10:24 Acetaminophen 325 Mg Tablet PO 650 mg Q4H PRN Administration Mild Pain (1-3) or Fever Albuterol/Ipratropium 3 ml 06/22/25 20:00 06/23/25 13:26 Ipratropium 0.5 Mg/Albuterol Sulfate 2.5 Mg Ampul.Neb 3 Ml INHALATION 3 ml Q6HRT HIPOLITO Administration Carvedilol 12.5 mg 06/20/25 09:00 06/23/25 09:41 Carvedilol 12.5 Mg Tablet PO 12.5 mg Q12HR HIPOLITO Administration Dextrose 12.5 gm 06/19/25 22:22 Dextrose 50% 25 Gm/50 Ml Syringe IV PUSH PRN PRN Hypoglycemia Protocol Doxepin HCl 25 mg 06/19/25 22:30 06/22/25 22:29 Doxepin Hcl 25 Mg Capsule PO 25 mg HS HIPOLITO Administration Doxycycline Hyclate 100 mg 06/21/25 21:00 06/23/25 09:41 Doxycycline Hyclate 100 Mg Tablet PO 06/24/25 09:01 100 mg Q12HR HIPOLITO Administration Fluoxetine HCl 40 mg 06/20/25 09:00 06/23/25 09:40 Fluoxetine Hcl 20 Mg Capsule PO 40 mg DAILY HIPOLITO Administration Furosemide 20 mg 06/21/25 17:00 06/23/25 09:41 Furosemide 20 Mg Tablet PO 20 mg BID HIPOLITO Administration Glucose 15 gm 06/19/25 22:22 Glucose Oral Gel 15 Gm Of Glucse In 37.5 Gm Tube PO PRN PRN Hypoglycemia Protocol Cefepime HCl 2 gm/ Sodium 50 mls @ 100 mls/hr 06/19/25 22:00 06/23/25 06:00 Chloride IVPB Infused Q8HR HIPOLITO Infusion Dextrose 1,000 mls @ 100 mls/hr 06/19/25 22:22 Dextrose 5% 1,000 Ml IVPB PRN PRN Hypoglycemia Protocol Vancomycin HCl 1,250 mg in 250 mls @ 166.667 mls/hr 06/23/25 10:00 06/23/25 09:41 Vancomycin 1,250 Mg/Ns 250 Ml IVPB 166.67 mls/hr Q24H HIPOL[facility]O Administration Insulin Aspart 2 - 5 units 06/20/25 12:00 06/23/25 15:03 Insulin Aspart (*Bkc) 100 Units/Ml SUB-Q Not Given TIDWM [facility] Protocol Insulin Aspart 1 - 2 units 06/20/25 21:00 06/22/25 22:13 Insulin Aspart (*Bkc) 100 Units/Ml SUB-Q Not Given HS [facility] Protocol Metronidazole 500 mg 06/21/25 22:00 06/23/25 05:32 Metronidazole 500 Mg Tablet PO 06/26/25 14:01 500 mg Q8HR [facility]OL[facility]O Administration Mupirocin 1 applic 06/19/25 21:00 06/23/25 09:49 Mupirocin 2% Oint 22 Gm Tube EACH NARE 06/24/25 09:01 1 applic Q12HR [facility]IPOL[facility]O Administration Ondansetron HCl 4 mg 06/19/25 15:05 06/19/25 20:36 Ondansetron Inj 4 Mg/2 Ml Vial IV PUSH 4 mg Q4H PRN Administration Nausea Pantoprazole Sodium 40 mg 06/22/25 09:00 06/23/25 09:41 Pantoprazole 40 Mg Tablet PO 40 mg QAM HIPOLITO Administration Radiology Results: ITS Impressions Chest X-Ray 06/19/25 12:09 IMPRESSION: 1. Cardiomegaly with pulmonary vascular congestion. 2. Opacities in the left mid and lower lung zones which could represent atelectasis and/or pneumonia. 3. Elevation of the right hemidiaphragm. Venous Doppler Study 06/20/25 16:52 Impression: 1: Lower extremity venous structures not visualized due to body habitus. Cannot exclude deep venous thrombosis. Renal Ultrasound 06/20/25 17:00 Impression: 1: Limited study due to patient body habitus. No significant abnormality of the right kidney identified. Left kidney not visualized. Labs Labs: Laboratory Tests 06/23/25 03:42 06/23/25 03:42 Calcium 8.1 L Magnesium 1.6 Microbiology 06/19/25 13:57 Blood Blood Culture - Preliminary 06/19/25 14:17 Blood Blood Culture - Preliminary
[2025-06-23] MEDS: POTASSIUM CHLORIDE 20 MEQ PACKET (FOR LIQUID) 40 MEQ PO (10:19)
[2025-06-23] MEDS: MAGNESIUM SULF 2 GM/WATER 50ML 2 GM/50 ML BAG IVPB (11:25)
--- NOTE | 2025-06-23 14:55 | P.PNIM_ITS ---
Progress Note: A&P Assessment and Plan (1) Acute hypoxemic respiratory failure: Code(s): J96.01 - Acute respiratory failure with hypoxia Status: Acute (2) Pneumonia: Code(s): J18.9 - Pneumonia, unspecified organism Status: Acute (3) Acute on chronic diastolic heart failure: Code(s): I50.33 - Acute on chronic diastolic (congestive) heart failure Status: Acute (4) Acute kidney injury: Code(s): N17.9 - Acute kidney failure, unspecified Status: Acute (5) Stage 3 chronic kidney disease: Code(s): N18.30 - Chronic kidney disease, stage 3 unspecified Status: Chronic (6) UTI (urinary tract infection): Code(s): N39.0 - Urinary tract infection, site not specified Status: Acute (7) Anemia: Qualifiers: Anemia type: unspecified type Qualified Code(s): D64.9 - Anemia, unspecified Code(s): D64.9 - Anemia, unspecified Status: Acute (8) Heme positive stool: Code(s): R19.5 - Other fecal abnormalities Status: Acute (9) Elevated troponin: Code(s): R79.89 - Other specified abnormal findings of blood chemistry Status: Acute (10) Morbid obesity: Code(s): E66.01 - Morbid (severe) obesity due to excess calories Status: Acute (11) AMANDA (obstructive sleep apnea): Code(s): G47.33 - Obstructive sleep apnea (adult) (pediatric) Status: Acute (12) Diabetes: Code(s): E11.9 - Type 2 diabetes mellitus without complications Status: Acute Plan Acute on chronic hypoxic respiratory failure - Baseline 3 L nasal cannula while awake and also uses 3L with BiPAP during naps and sleep. Chest x-ray shows opacities in the left mid and lower lung zones which could represent atelectasis and/or pneumonia and elevation of right hemidiaphragm. MRSA positive. Quad viral screen negative. Procalcitonin 10.5. Started on vancomycin, cefepime, doxycycline, and metronidazole. Urine antigens pending. Blood culture NGTD Sputum Cx ordered At baseline O2 requirement and no wheexing so will change DuoNebs to prn. Continue Flagyl and Cefepime. Vanco stopped and will increase length of Doxycycline course. Possible pneumonia - see above Acute on chronic diastolic CHF - BNP 9940. chest x-ray also reports pulmonary vascular congestion with cardiomegaly. Patient takes torsemide and Coreg at home. Echo showing EF 65-70%, RV enlargement with RV hypokinesis and mild-mod TR and RVSP 45mmHg. Suspect she has lymphedema and a component of right sided failure. Started on Lasix IV. Fluid balance -935, BNP 3500 so changed to oral Lasix. Weight unchanged. Since changing to oral Lasix, patient with excessive UOP 1500-> 2250-> 5850 so far today. Could be post-ATN diuresis. Could be from excessive fluid intake. Fluid restrict. Strict I/O, daily weight. Follow I/os CRISTA/CKD - Creatinine baseline about 1.1-1.6 on review of records. Cr peaked at 2.02 but now trending down. Increased UOP noted. Total protein high with renal insufficieny and anemia - consider MM. Nephrology consulted. Complement normal. TCk normal. Urine eos negative. urine Prot 1.4gm. Will monitor renal function, UOP and electrolytes Chronic indwelling Wren catheter - which was changed in the ER. Not sure if this is for comfort, sanitation or retention. UA noted but UCx grew 50-100K colonies of 3 organisms but no cx performed. Anemia - acute on chronic. Hgb 6.5 on admission status post 1 unit PRBC transfusion. Hgb again 6.8 and a 2nd unit given. B12/folate normal. Iron deficiency with ISat 12% and Ferritin 36. Stool occult blood is positive suggestive of GI bleed. GI has been consulted. On PPI. Hgb up to 7 range and stable. Monitor serial hemoglobin. Add iron FOBT positive stool - GI consulted. Anemia workup ordered. Deemed high risk for endoscopy. Elevated troponin - EKG showing no acute ST/T wave changes. Troponin peaked at 0.58. She had MPI at OSH 10/19/24 per EPIC review that demonstrated no obvious i schemia. [place] related to demand ischemia from above and renal insufficiency. Not ACS. Possible UTI - as above. Continue antibiotics Morbid obesity - BMI 91. Would benefit from calorie restriction and weight loss medication. Bed-bound status - PT/OT AMANDA - on BiPAP chronically at night and during naps at daytime with 3L bleed in Insulin-dependent diabetes mellitus - A1c 5.8%. Glucose remains well controlled. Continue AccuCheks covering with sliding scale. Hypoglycemia protocol available as needed. Continue to monitor. Code status full code DVT prophylaxis - SCDs but not sure able to fit. No anti-coagulation due to anemia and +FOBT Subjective Date/time seen: 06/23/25 14:55 Interval history: 60-year-old female with class 3 obesity with BMI 91, bed-bound, chronic indwelling Wren catheter, CHF, obstructive disease on BiPAP during naps and sleep, chronic respiratory failure on 3 L nasal cannula continuously flu, insulin-dependent diabetes mellitus. The patient [facility] with shortness of breath. COmplains of lower abd pain but this has since improved. No SOB or CP. No n/v. Eating okay. Patient also with increasing UOP Exam Narrative: AF 98.3 139/51 68 30 99% 3L Gen - NARD Chest - clear anteriorly. No respiratory distress. CV - RRR S1/S2. Tele showing no significant dysrhythmias Abd - Soft, morbidly obese. No significant tenderness. Abdominal wall edema - Wren catheter secured draining clear yellow urine. Ext - Severe bilateral lower extremity lymphedema. Skin - Ulcerations and excoriations noted in multiple skin folds including the groin, behind the knees, under her left breast and lateral flank under her pannus Neuro - Alert and appropriate Psych - Normal mood and affect. Objective Data Vital Signs Vital Signs: Vital Signs - 24 hr 06/22/25 16:00 06/22/25 16:00 06/22/25 16:18 Temperature 97.8 F Pulse Rate 75 75 75 Respiratory Rate 20 20 Blood Pressure 132/60 Pulse Oximetry 99 Oxygen Delivery Oxygen Flow Rate Fraction of Inspired Oxygen 06/22/25 20:00 06/22/25 20:09 06/22/25 20:09 Temperature Pulse Rate 75 103 H 103 H Respiratory Rate 20 Blood Pressure Pulse Oximetry 99 Oxygen Delivery Nasal Cannula Oxygen Flow Rate 3 Fraction of Inspired Oxygen 06/22/25 20:20 06/22/25 22:00 06/22/25 22:16 Temperature Pulse Rate 98 74 103 H Respiratory Rate 20 20 20 Blood Pressure Pulse Oximetry 97 99 Oxygen Delivery BiPAP BiPAP Oxygen Flow Rate Fraction of Inspired Oxygen 32 06/22/25 22:29 06/22/25 23:52 06/23/25 00:00 Temperature 97.8 F Pulse Rate 72 72 70 Respiratory Rate 20 Blood Pressure 130/52 L Pulse Oximetry 97 Oxygen Delivery Oxygen Flow Rate Fraction of Inspired Oxygen 06/23/25 01:30 06/23/25 01:30 06/23/25 01:45 Temperature Pulse Rate 69 69 70 Respiratory Rate 23 H 23 H 21 H Blood Pressure Pulse Oximetry 97 Oxygen Delivery BiPAP Oxygen Flow Rate Fraction of Inspired Oxygen 06/23/25 04:00 06/23/25 04:45 06/23/25 07:20 Temperature Pulse Rate 72 72 72 Respiratory Rate 19 16 Blood Pressure Pulse Oximetry 99 99 Oxygen Delivery BiPAP BiPAP Oxygen Flow Rate Fraction of Inspired Oxygen 06/23/25 07:20 06/23/25 07:31 06/23/25 08:00 Temperature 98.3 F Pulse Rate 72 76 73 Respiratory Rate 16 16 23 H Blood Pressure 139/51 L Pulse Oximetry 97 Oxygen Delivery Oxygen Flow Rate Fraction of Inspired Oxygen 06/23/25 08:00 06/23/25 08:01 06/23/25 09:41 Temperature Pulse Rate 75 76 Respiratory Rate Blood Pressure Pulse Oximetry 97 Oxygen Delivery Nasal Cannula Oxygen Flow Rate 3 Fraction of Inspired Oxygen 06/23/25 13:26 06/23/25 13:26 06/23/25 13:37 Temperature Pulse Rate 70 70 68 Respiratory Rate 26 H 26 H 30 H Blood Pressure Pulse Oximetry 99 Oxygen Delivery BiPAP Oxygen Flow Rate Fraction of Inspired Oxygen Intake/Output Intake/Output: Intake & Output 06/20/25 06/21/25 06/22/25 06/23/25 23:59 23:59 23:59 23:59 Intake Total 1740 2955 1720 410 Output Total 1600 2200 4150 4100 Balance 140 799 -2834 -3191 Meds/Results Medications: Active Medications Generic Name Dose Route Start Last Admin Trade Name Freq PRN Reason Stop Dose Admin Acetaminophen 650 mg 06/19/25 15:05 06/21/25 10:24 Acetaminophen 325 Mg Tablet PO 650 mg Q4H PRN Administration Mild Pain (1-3) or Fever Albuterol/Ipratropium 3 ml 06/22/25 20:00 06/23/25 13:26 Ipratropium 0.5 Mg/Albuterol Sulfate 2.5 Mg Ampul.Neb 3 Ml INHALATION 3 ml Q6HRT HIPOLITO Administration Carvedilol 12.5 mg 06/20/25 09:00 06/23/25 09:41 Carvedilol 12.5 Mg Tablet PO 12.5 mg Q12HR HIPOLITO Administration Dextrose 12.5 gm 06/19/25 22:22 Dextrose 50% 25 Gm/50 Ml Syringe IV PUSH PRN PRN Hypoglycemia Protocol Doxepin HCl 25 mg 06/19/25 22:30 06/22/25 22:29 Doxepin Hcl 25 Mg Capsule PO 25 mg HS HIPOLITO Administration Doxycycline Hyclate 100 mg 06/21/25 21:00 06/23/25 09:41 Doxycycline Hyclate 100 Mg Tablet PO 06/24/25 09:01 100 mg Q12HR HIPOLITO Administration Fluoxetine HCl 40 mg 06/20/25 09:00 06/23/25 09:40 Fluoxetine Hcl 20 Mg Capsule PO 40 mg DAILY HIPOLITO Administration Furosemide 20 mg 06/21/25 17:00 06/23/25 09:41 Furosemide 20 Mg Tablet PO 20 mg BID HIPOLITO Administration Glucose 15 gm 06/19/25 22:22 Glucose Oral Gel 15 Gm Of Glucse In 37.5 Gm Tube PO PRN PRN Hypoglycemia Protocol Cefepime HCl 2 gm/ Sodium 50 mls @ 100 mls/hr 06/19/25 22:00 06/23/25 06:00 Chloride IVPB Infused Q8HR HIPOLITO Infusion Dextrose 1,000 mls @ 100 mls/hr 06/19/25 22:22 Dextrose 5% 1,000 Ml IVPB PRN PRN Hypoglycemia Protocol Vancomycin HCl 1,250 mg in 250 mls @ 166.667 mls/hr 06/23/25 10:00 06/23/25 09:41 Vancomycin 1,250 Mg/Ns 250 Ml IVPB 166.67 mls/hr Q24H HIPOLITO Administration Insulin Aspart 2 - 5 units 06/20/25 12:00 06/23/25 09:50 Insulin Aspart (*Bkc) 100 Units/Ml SUB-Q Not Given TIDWM HIPOLITO Protocol Insulin Aspart 1 - 2 units 06/20/25 21:00 06/22/25 22:13 Insulin Aspart (*Bkc) 100 Units/Ml SUB-Q Not Given HS HIPOLITO Protocol Metronidazole 500 mg 06/21/25 22:00 06/23/25 05:32 Metronidazole 500 Mg Tablet PO 06/26/25 14:01 500 mg Q8HR HIPOLITO Administration Mupirocin 1 applic 06/19/25 21:00 06/23/25 09:49 Mupirocin 2% Oint 22 Gm Tube EACH NARE 06/24/25 09:01 1 applic Q12HR HIPOLITO Administration Ondansetron HCl 4 mg 06/19/25 15:05 06/19/25 20:36 Ondansetron Inj 4 Mg/2 Ml Vial IV PUSH 4 mg Q4H PRN Administration Nausea Pantoprazole Sodium 40 mg 06/22/25 09:00 06/23/25 09:41 Pantoprazole 40 Mg Tablet PO 40 mg QAM HIPOLITO Administration Radiology Results: ITS Impressions Chest X-Ray 06/19/25 12:09 IMPRESSION: 1. Cardiomegaly with pulmonary vascular congestion. 2. Opacities in the left mid and lower lung zones which could represent atelectasis and/or pneumonia. 3. Elevation of the right hemidiaphragm. Venous Doppler Study 06/20/25 16:52 Impression: 1: Lower extremity venous structures not visualized due to body habitus. Cannot exclude deep venous thrombosis. Renal Ultrasound 06/20/25 17:00 Impression: 1: Limited study due to patient body habitus. No significant abnormality of the right kidney identified. Left kidney not visualized. Labs Labs: Laboratory Results - last 24 hr 06/21/25 06/22/25 06/22/25 17:53 14:57 16:48 WBC RBC Hgb Hct MCV MCH MCHC RDW Plt Count MPV Immature Gran % (Auto) Neut % (Auto) Lymph % (Auto) Mcmullen % (Auto) Eos % (Auto) Baso % (Auto) Lymph # (Auto) Mcmullen # (Auto) Eos # (Auto) Baso # (Auto) Abs Immat Gran (auto) Absolute Neuts (auto) Absolute Nucleated RBC Band Neutrophils % Nucleated RBC % Platelet Estimate Hypochromasia Schistocytes Sodium Potassium Chloride Carbon Dioxide Anion Gap BUN Creatinine Estim Creat Clear Calc Estimated GFR Glucose POC Capillary Glucose 164 H Calcium Magnesium Vancomycin Trough 24.9 H Tot Complement (CH50) >60 06/22/25 06/23/25 06/23/25 21:00 03:42 07:30 WBC 6.8 RBC 2.76 L Hgb 7.3 L Hct 24.5 L MCV 88.8 MCH 26.4 MCHC 29.8 L RDW 15.4 H Plt Count 126 L MPV 9.7 Immature Gran % (Auto) 0.7 H Neut % (Auto) 70.5 Lymph % (Auto) 13.9 L Mcmullen % (Auto) 9.1 H Eos % (Auto) 5.1 H Baso % (Auto) 0.7 Lymph # (Auto) 0.95 Mcmullen # (Auto) 0.6 Eos # (Auto) 0.4 H Baso # (Auto) 0.1 Abs Immat Gran (auto) 0.05 H Absolute Neuts (auto) 4.8 Absolute Nucleated RBC 0.000 Band Neutrophils % Not Reportable Nucleated RBC % 0.0 Platelet Estimate Decreased Hypochromasia 2+ Schistocytes None seen Sodium 135 L Potassium 3.2 L Chloride 86 L Carbon Dioxide > 40 H Anion Gap BUN 54 H Creatinine 1.64 H Estim Creat Clear Calc 74 Estimated GFR 32 L Glucose 162 H POC Capillary Glucose 167 H 153 H Calcium 8.1 L Magnesium 1.6 Vancomycin Trough Tot Complement (CH50) 06/23/25 11:22 WBC RBC Hgb Hct MCV MCH MCHC RDW Plt Count MPV Immature Gran % (Auto) Neut % (Auto) Lymph % (Auto) Mcmullen % (Auto) Eos % (Auto) Baso % (Auto) Lymph # (Auto) Mcmullen # (Auto) Eos # (Auto) Baso # (Auto) Abs Immat Gran (auto) Absolute Neuts (auto) Absolute Nucleated RBC Band Neutrophils % Nucleated RBC % Platelet Estimate Hypochromasia Schistocytes Sodium Potassium Chloride Carbon Dioxide Anion Gap BUN Creatinine Estim Creat Clear Calc Estimated GFR Glucose POC Capillary Glucose 168 H Calcium Magnesium Vancomycin Trough Tot Complement (CH50)
--- NOTE | 2025-06-23 16:04 | PCWOUND ---
WOCN Note Assisted RN to apply silver nitrate stick to bleeding skin pull area on the underside of the pannus.
[2025-06-23] MEDS: SILVER NITRATE (*SP) STICK 10 EACH TOPICAL (16:12)
[2025-06-23] MEDS: LOPERAMIDE HCL 2 MG CAPSULE PO (18:46)
[2025-06-23] MEDS: DOXEPIN HCL 25 MG CAPSULE PO (22:46)
[2025-06-23] MEDS: ACETAMINOPHEN 325 MG TABLET 650 MG PO (23:01)
[2025-06-24] VITALS (15 sets, daily range): BP systolic 133–150; BP diastolic 48–57; PULSE 71–79; RESP 18–23; TEMP 36.1–36.8; O2SAT 96–100
--- NOTE | 2025-06-24 02:04 | PC.NURSE ---
06/23/25 Pt bed assignment given at 0114 per fire extinguisher charger. 06/24/25-Pt SBAR faxed at [phone]. [address] [place] [address] called and notified that Pt SBAR has been faxed and tubed to floor. Pt's new RN to call this RN back for report when available.
--- NOTE | 2025-06-24 02:29 | PC.NURSE ---
This patient, Lourdes Goncalves, was transferred to room 241-1 on 06/24/25 at 0229. Personal belongings sent with patient. Report given to TIMI Salinas. Appropriate documentation sent with patient. Pt states that she does not want her emergency contact called at this time to update them on her room transfer.
--- NOTE | 2025-06-24 03:10 | PC.NURSE ---
Pt transferred from IMU room 210 to 2nd Medical room 241 @0240. All appropriate equipment and documentation brought with pt. Continued contact isolation for MRSA + in nares. Report received from TIMI Moore.
[2025-06-24 05:06] LABS: Hematocrit 25.2 % (37.0-47.0); Hemoglobin 7.4 g/dL (12.0-15.0); Immature Granulocyte Percent A 0.7 % (0-0.5); Lymphocytes Absolute Auto 0.91 K/mm3 (0.9-3.2); Mean Corpuscular HGB Conc 29.4 g/dl (32-36); Mean Corpuscular Hemoglobin 26.0 pg (26-34); Mean Corpuscular Volume 88.4 fl (80-100); Nucleated Red Blood Cells Absolute Auto 0.000 K/mm3 (0.0-0.012); Nucleated Red Blood Cells Perc 0.0 % (0.0-0.2); Platelet Count Result 134 k/mm3 (150-375); Red Blood Count 2.85 M/mm3 (4.2-5.4); White Blood Count 6.9 K/mm3 (4.5-10.0)
[2025-06-24 05:27] LABS: Anisocytosis 1+; Hypochromasia 1+; Schistocytes None Seen
[2025-06-24 06:01] LABS: Alanine Aminotransferase 14 U/L (6-35); Albumin Level 3.2 g/dL (3.5-5.1); Alkaline Phosphatase 65 U/L (38-126); Aspartate Amino Transferase 29 U/L (14-36); Bilirubin,Total 0.6 mg/dL (0.2-1.3); Blood Urea Nitrogen 47 mg/dL (7-17); Calcium 8.2 mg/dL (8.4-10.2); Chloride 86 mmol/L (98-107); Estimated CRCL calculation 83 ml/min; Estimated Glomerular Filt Rate 39; Glucose 151 mg/dL (65-110); Magnesium 1.6 mg/dL (1.6-2.3); Potassium 3.0 mmol/L (3.4-5.0); Sodium 134 mmol/L (137-145); Total Protein 8.5 g/dL (6.3-8.2)
[2025-06-24] MEDS: CEFEPIME 2 GM in SODIUM CHLORIDE 0.9% IV 50 ML 100 ML IVPB ×3 (06:26→21:04)
[2025-06-24 06:37] LABS: Anion Gap 9 mmol/L (4-12); Carbon Dioxide 39 mmol/L (22-30)
[2025-06-24 07:48] LABS: Immunoglobulin A 657 mg/dL (70-400); Immunoglobulin M 100 mg/dL (40-230)
[2025-06-24 08:08] LABS: Immunoglobulin G 3224 mg/dL (700-1600)
[2025-06-24] MEDS: POTASSIUM CHLORIDE 20 MEQ PACKET (FOR LIQUID) 40 MEQ PO ×2 (09:24→16:33)
[2025-06-24] MEDS: PANTOPRAZOLE 40 MG TABLET PO (09:24)
[2025-06-24] MEDS: FUROSEMIDE 20 MG TABLET PO ×2 (09:24→16:33)
[2025-06-24] MEDS: DOXYCYCLINE HYCLATE 100 MG TABLET PO ×2 (09:24→21:01)
[2025-06-24] MEDS: MAGNESIUM SULF 2 GM/WATER 50ML 2 GM/50 ML BAG IVPB (09:25)
--- NOTE | 2025-06-24 11:24 | P.PNNP_ITS ---
Progress Note: A&P Assessment and Plan (1) Acute kidney injury: Code(s): N17.9 - Acute kidney failure, unspecified Status: Acute Assessment and Plan: * improvement noted * as noted on admisson (creatinine of 1.92mg/dL) * suspect multifactorial etiology: * anemia * CHF exacerbation * infection (pneumonia +/- UTI) * hypoxia * need for diuretic therapy * chronic quevedo catheter (?) * other (?) * evaluation to date noted * renal ultrasound noted (limited results) * urine electrolytes slightly prerenal (by FeUrea) * UA suggestive of infection * urine eosinophils negative * CPK normal * moderate proteinuria * still making urine (albeit with diuretics) and no critical electrolytes * follow trend of repeat labs and UOP (2) Stage 3 chronic kidney disease: Code(s): N18.30 - Chronic kidney disease, stage 3 unspecified Status: Chronic Assessment and Plan: * baseline creatinine runs around 1.1 - 1.6mg/dL since August 2024 * however, has been as low as 0.99mg/dL * noted fluctuations usually occur with acute hospitalizations... * on last hospital discharge ([facility] in April 2025), creatinine was 1.43mg/dL * this causes her to bounce between CKD stage 3A and stage 3B * presumably secondary to diabetes, hypertension, CHF + diuretic therapy, vascular disease, and obesity (3) Acute on chronic hypoxic respiratory failure: Code(s): J96.21 - Acute and chronic respiratory failure with hypoxia Status: Acute Assessment and Plan: * acute respiratory failure due to: * CHF exacerbation * anemia * possible pneumonia * other (?) * chronic component due to: * OHS * AMANDA * COPD(?) * chronic CHF * bed-bound status(?) * known baseline oxygen requirement of 3L by NC while awake and BiPAP during naps and sleep. * admission XR noted: * cardiomegaly with pulmonary vascular congestion, opacities in the left mid and lower lung zones which could represent atelectasis and/or pneumonia * viral testing for influenza/RSV/COVID negative * Legionella urine antigen negative * continue current therapy as outlined (4) Acute on chronic diastolic heart failure: Code(s): I50.33 - Acute on chronic diastolic (congestive) heart failure Status: Acute Assessment and Plan: * as suggested by admission testing and exam * BNP 9940 * CXR with pulmonary vascular congestion with cardiomegaly * symptoms of shortness of breath * Echo (on 06/20) noted: * normal left ventricular size with well-preserved systolicfunction of 65 - 70% * mildly sclerotic aortic valve which is not stenotic * mild mitral annular calcification * mild to moderate tricuspid regurgitation * Moderate pulmonary hypertension, estimated pulmonary arterial systolic pressure is 54 mmHg * on lasix * follow I/Os and daily weights * almost 6.5L negative (including urine output overnight) -- possible post ATN diuresis... * Cardiology following (5) Pneumonia: Code(s): J18.9 - Pneumonia, unspecified organism Status: Acute Assessment and Plan: * suspected based on admission CXR * noted productive cough (with reported green sputum) * follow culture data - negative to date * on antibiotics * follow respiratory status (6) Anemia: Qualifiers: Anemia type: unspecified type Qualified Code(s): D64.9 - Anemia, unspecified Code(s): D64.9 - Anemia, unspecified Status: Acute Assessment and Plan: * acute on chronic * Hgb 6.5 on admission * Hgb down to 6.8 on 06/21 * PRBC transfusion per protocol -- 2 units so far this admission * noted hemoccult positive stool * anemia studies c/w iron deficiency * unable to give IV iron due to allergy * GI recommendations noted -- high risk for EGD; conservative therapy * ruling out multiple myeloma: * SPEP/UPEP along with serum/urine immunofixation pending * check kappa/lambda ratio * follow trend of H/H (7) UTI (urinary tract infection): Code(s): N39.0 - Urinary tract infection, site not specified Status: Acute Assessment and Plan: * admission UA suggestive * on antibiotics * unfortunately - no urine culture done (8) Diabetes: Code(s): E11.9 - Type 2 diabetes mellitus without complications Status: Acute Assessment and Plan: * follow accu-cheks * glycemic control per hospitalist Will continue to follow. L Subjective Date/time seen: 06/24/25 11:24 Interval history: Follow-up for acute kidney injury/acute renal failure on chronic kidney disease. No apparent distress noted at the time of my visit but states she feels a little bit more short of breath when seen; despite just oral diuretic therapy, significant urine output noted in the last 24 - 48 hours (almost 9500cc with another 1200cc overnight); stable hemodynamics noted as well. Exam 2 Narrative: General: large female in NAD Heart: normal S1 and S2; no rub Lungs: clear anteriorly; decreased at bases Abdomen: obese but soft, nontender, nondistended, positive bowel sounds Extremities: no cyanosis or clubbing; chronic edema Skin: + lymphedema changes Objective Data Vital Signs Vital Signs: Vital Signs Temp Pulse Resp BP Pulse Ox O2 Del Method O2 Flow Rate 06/24/25 09:24 71 06/24/25 08:00 100 Nasal Cannula 3 06/24/25 08:00 73 06/24/25 04:23 96.9 F L 71 20 133/57 L 100 06/24/25 04:00 72 06/24/25 03:13 BiPAP 06/24/25 02:45 71 21 H 98 BiPAP 06/24/25 01:40 73 20 100 BiPAP 06/24/25 00:00 74 06/23/25 23:46 98.0 F 75 20 134/50 L 98 06/23/25 22:46 74 06/23/25 22:18 72 22 H 99 BiPAP 06/23/25 21:13 72 22 H 99 BiPAP 06/23/25 20:00 71 Intake/Output Intake/Output: Intake & Output 06/21/25 06/22/25 06/23/25 06/24/25 23:59 23:59 23:59 23:59 Intake Total 2955 1720 2580 290 Output Total 2200 4150 7300 2800 Balance 571 -2876 -8290 -8160 Meds/Results Medications: Active Medications Generic Name Dose Route Start Last Admin Trade Name Freq PRN Reason Stop Dose Admin Acetaminophen 650 mg 06/19/25 15:05 06/24/25 13:07 Acetaminophen 325 Mg Tablet PO 650 mg Q4H PRN Administration Mild Pain (1-3) or Fever Albuterol/Ipratropium 3 ml 06/23/25 18:04 Ipratropium 0.5 Mg/Albuterol Sulfate 2.5 Mg Ampul.Neb 3 Ml INHALATION Q6HRT PRN Shortness Of Breath Or Wheezing Carvedilol 12.5 mg 06/20/25 09:00 06/24/25 09:24 Carvedilol 12.5 Mg Tablet PO 12.5 mg Q12HR HIPOLITO Administration Dextrose 12.5 gm 06/19/25 22:22 Dextrose 50% 25 Gm/50 Ml Syringe IV PUSH PRN PRN Hypoglycemia Protocol Doxepin HCl 25 mg 06/19/25 22:30 06/23/25 22:46 Doxepin Hcl 25 Mg Capsule PO 25 mg HS HIPOLITO Administration Doxycycline Hyclate 100 mg 06/21/25 21:00 06/24/25 09:24 Doxycycline Hyclate 100 Mg Tablet PO 06/25/25 21:01 100 mg Q12HR HIPOLITO Administration Fluoxetine HCl 40 mg 06/20/25 09:00 06/24/25 09:24 Fluoxetine Hcl 20 Mg Capsule PO 40 mg DAILY HIPOLITO Administration Furosemide 20 mg 06/21/25 17:00 06/24/25 09:24 Furosemide 20 Mg Tablet PO 20 mg BID HIPOLITO Administration Glucose 15 gm 06/19/25 22:22 Glucose Oral Gel 15 Gm Of Glucse In 37.5 Gm Tube PO PRN PRN Hypoglycemia Protocol Cefepime HCl 2 gm/ Sodium 50 mls @ 100 mls/hr 06/19/25 22:00 06/24/25 13:54 Chloride IVPB 06/25/25 23:59 100 mls/hr Q8HR HIPOLITO Administration Dextrose 1,000 mls @ 100 mls/hr 06/19/25 22:22 Dextrose 5% 1,000 Ml IVPB PRN PRN Hypoglycemia Protocol Insulin Aspart 2 - 5 units 06/20/25 12:00 06/24/25 12:18 Insulin Aspart (*Bkc) 100 Units/Ml SUB-Q Not Given TIDWM HIPOLITO Protocol Insulin Aspart 1 - 2 units 06/20/25 21:00 06/23/25 22:47 Insulin Aspart (*Bkc) 100 Units/Ml SUB-Q Not Given HS HIPOLITO Protocol Metronidazole 500 mg 06/21/25 22:00 06/24/25 13:53 Metronidazole 500 Mg Tablet PO 06/26/25 14:01 500 mg Q8HR HIPOLITO Administration Ondansetron HCl 4 mg 06/19/25 15:05 06/19/25 20:36 Ondansetron Inj 4 Mg/2 Ml Vial IV PUSH 4 mg Q4H PRN Administration Nausea Pantoprazole Sodium 40 mg 06/22/25 09:00 06/24/25 09:24 Pantoprazole 40 Mg Tablet PO 40 mg QAM HIPOLITO Administration Potassium Chloride 40 meq 06/24/25 09:00 06/24/25 09:24 Potassium Chloride 20 Meq Packet (For Liquid) PO 06/24/25 17:01 40 meq BID HIPOLITO Administration Radiology Results: ITS Impressions Chest X-Ray 06/19/25 12:09 IMPRESSION: 1. Cardiomegaly with pulmonary vascular congestion. 2. Opacities in the left mid and lower lung zones which could represent atelectasis and/or pneumonia. 3. Elevation of the right hemidiaphragm. Venous Doppler Study 06/20/25 16:52 Impression: 1: Lower extremity venous structures not visualized due to body habitus. Cannot exclude deep venous thrombosis. Renal Ultrasound 06/20/25 17:00 Impression: 1: Limited study due to patient body habitus. No significant abnormality of the right kidney identified. Left kidney not visualized. Labs Labs: Laboratory Tests 06/24/25 04:36 06/24/25 04:36 Calcium 8.2 L Magnesium 1.6 Total Bilirubin 0.6 AST 29 ALT 14 Alkaline Phosphatase 65 Total Protein 8.5 H Albumin 3.2 L Microbiology 06/20/25 03:59 Urine - Unspecified Legionella pneumophila Serogrp 1 Ag - Final
[2025-06-24] MEDS: ACETAMINOPHEN 325 MG TABLET 650 MG PO ×2 (13:07→21:01)
[2025-06-24] MEDS: MUPIROCIN 2% OINT 22 GM TUBE 1 APPLIC EACH NARE (13:07)
--- NOTE | 2025-06-24 15:14 | P.PNIM_ITS ---
Progress Note: A&P Assessment and Plan (1) Acute hypoxemic respiratory failure: Code(s): J96.01 - Acute respiratory failure with hypoxia Status: Acute Assessment and Plan: Acute on chronic hypoxic respiratory failure - Baseline 3 L nasal cannula while awake and also uses 3L with BiPAP during naps and sleep. CXR shows opacities in the left mid and lower lung zones c/w atelectasis and/or pneumonia and elevated right hemidiaphragm. MRSA positive. Quad viral screen negative. Procalcitonin 10.5. Started on vancomycin, cefepime, doxycycline, and metronidazole. Urine antigens pending. Blood culture NGTD Sputum Cx ordered At baseline O2 requirement and no wheezing. DuoNebs available prn. Continue Flagyl and Cefepime. Vanco stopped and length of Doxycycline course increased. Okay to discharge once she has completed Cefepime tomorrow (2) Pneumonia: Code(s): J18.9 - Pneumonia, unspecified organism Status: Acute Assessment and Plan: As above (3) Acute on chronic diastolic heart failure: Code(s): I50.33 - Acute on chronic diastolic (congestive) heart failure Status: Acute Assessment and Plan: BNP 9940. CXR also reports pulmonary vascular congestion with cardiomegaly. Patient takes torsemide and Coreg at home. Echo showing EF 65-70%, RV enlargement with RV hypokinesis and mild-mod TR and RVSP 45mmHg. Suspect she has lymphedema and a component of right sided failure. Started on Lasix IV. Fluid balance -8L. BNP 3500 so changed to oral Lasix. Since changing to oral Lasix, patient with excessive UOP 1500-> 2250-> 7300-> 2800 so far today. Could be post-ATN diuresis. Could be from excessive fluid intake. Fluid restriction ordered. Strict I/O, daily weight. Follow I/os (4) Acute on chronic kidney failure: Code(s): N17.9 - Acute kidney failure, unspecified; N18.9 - Chronic kidney disease, unspecified Status: Acute Assessment and Plan: CRISTA/CKD - Creatinine baseline about 1.1-1.6 on review of records. Cr peaked at 2.02 but now trending down. Increased UOP noted. Total protein high with renal insufficieny and anemia - consider MM. Nephrology consulted. Complement normal. TCk normal. Urine eos negative. urine Prot 1.4gm. Cr better at 1.4 Will monitor renal function, UOP and electrolytes (5) UTI (urinary tract infection): Code(s): N39.0 - Urinary tract infection, site not specified Status: Acute Assessment and Plan: Complicated UTI with patient having a chronic indwelling Wren catheter. Wren was changed in the ER. Not sure if catheter is for comfort, sanitation and/or retention. UA noted but UCx grew 50-100K colonies of 3 organisms but no cx performed. Continue abx as above (6) Anemia: Qualifiers: Anemia type: unspecified type Qualified Code(s): D64.9 - Anemia, unspecified Code(s): D64.9 - Anemia, unspecified Status: Acute Assessment and Plan: Anemia - acute on chronic. Hgb 6.5 on admission status post 1 unit PRBC transfusion. Hgb again 6.8 and a 2nd unit given. B12/folate normal. Iron deficiency with ISat 12% and Ferritin 36. Stool occult blood is positive suggestive of GI bleed. GI has been consulted. On PPI. Hgb up to 7 range and stable. Monitor serial hemoglobin. She is allergic to iron (7) Heme positive stool: Code(s): R19.5 - Other fecal abnormalities Status: Acute Assessment and Plan: FOBT positive stool - GI consulted. Anemia workup ordered. Deemed high risk for endoscopy. (8) Elevated troponin: Code(s): R79.89 - Other specified abnormal findings of blood chemistry Status: Acute Assessment and Plan: Elevated troponin - EKG showing no acute ST/T wave changes. Troponin peaked at 0.58. Cardiology consulted. She had MPI at OSH 10/19/24 per EPIC review that demonstrated no obvious ischemia. [facility] related to demand ischemia from above and renal insufficiency. Not ACS. (9) Morbid obesity: Code(s): E66.01 - Morbid (severe) obesity due to excess calories Status: Acute Assessment and Plan: Morbid obesity - BMI 91. Would benefit from calorie restriction and weight loss medication. (10) AMANDA (obstructive sleep apnea): Code(s): G47.33 - Obstructive sleep apnea (adult) (pediatric) Status: Acute Assessment and Plan: AMANDA - on BiPAP chronically at night and during naps at daytime with 3L bleed in (11) Diabetes: Code(s): E11.9 - Type 2 diabetes mellitus without complications Status: Acute Assessment and Plan: Insulin-dependent diabetes mellitus - A1c 5.8%. Glucose remains well controlled. Continue AccuCheks covering with sliding scale. Hypoglycemia protocol available as needed. Continue to monitor. Plan Code status full code DVT prophylaxis - SCDs but not sure able to fit. No anti-coagulation due to anemia and +FOBT Bed-bound status - PT/OT Subjective Date/time seen: 06/24/25 15:14 Interval history: 60-year-old female with class 3 obesity with BMI 91, bed-bound, chronic indwelling Wren catheter, CHF, obstructive disease on BiPAP during naps and sleep, chronic respiratory failure on 3 L nasal cannula continuously flu, insulin-dependent diabetes mellitus. The patient presents to [facility] ER from residential where she is a resident via EMS with shortness of breath. Having small frequent stools still. Feels okay. Eating some. no CP. More SOB today. Exam Narrative: AF 98.2 150/51 76 18 98% 3L Gen - NARD Chest - bibasilar crackles R>L CV - RRR S1/S2. Tele showing no significant dysrhythmias Abd - Soft, morbidly obese. No significant tenderness. Abdominal wall edema - Wren catheter secured draining clear yellow urine. Ext - Severe bilateral lower extremity lymphedema. Skin - Ulcerations and excoriations noted in multiple skin folds Neuro - Alert and appropriate Psych - Normal mood and affect. Objective Data Vital Signs Vital Signs: Vital Signs - 24 hr 06/23/25 16:00 06/23/25 16:00 06/23/25 20:00 Temperature 98.3 F Pulse Rate 74 75 71 Respiratory Rate 22 H Blood Pressure 145/63 H Pulse Oximetry 98 Oxygen Delivery Oxygen Flow Rate Fraction of Inspired Oxygen 06/23/25 21:13 06/23/25 22:18 06/23/25 22:46 Temperature Pulse Rate 72 72 74 Respiratory Rate 22 H 22 H Blood Pressure Pulse Oximetry 99 99 Oxygen Delivery BiPAP BiPAP Oxygen Flow Rate Fraction of Inspired Oxygen 32 06/23/25 23:46 06/24/25 00:00 06/24/25 01:40 Temperature 98.0 F Pulse Rate 75 74 73 Respiratory Rate 20 20 Blood Pressure 134/50 L Pulse Oximetry 98 100 Oxygen Delivery BiPAP Oxygen Flow Rate Fraction of Inspired Oxygen 06/24/25 02:45 06/24/25 03:13 06/24/25 04:00 Temperature Pulse Rate 71 72 Respiratory Rate 21 H Blood Pressure Pulse Oximetry 98 Oxygen Delivery BiPAP BiPAP Oxygen Flow Rate Fraction of Inspired Oxygen 06/24/25 04:23 06/24/25 08:00 06/24/25 08:00 Temperature 96.9 F L Pulse Rate 71 73 Respiratory Rate 20 Blood Pressure 133/57 L Pulse Oximetry 100 100 Oxygen Delivery Nasal Cannula Oxygen Flow Rate 3 Fraction of Inspired Oxygen 06/24/25 09:24 06/24/25 12:00 06/24/25 14:00 Temperature 98.2 F Pulse Rate 71 78 76 Respiratory Rate 18 Blood Pressure 150/51 H Pulse Oximetry 98 Oxygen Delivery Oxygen Flow Rate Fraction of Inspired Oxygen Intake/Output Intake/Output: Intake & Output 06/21/25 06/22/25 06/23/25 06/24/25 23:59 23:59 23:59 23:59 Intake Total 2955 1720 2580 290 Output Total 2200 4150 7300 2800 Balance 635 -2430 -4720 -2510 Meds/Results Medications: Active Medications Generic Name Dose Route Start Last Admin Trade Name Freq PRN Reason Stop Dose Admin Acetaminophen 650 mg 06/19/25 15:05 06/24/25 13:07 Acetaminophen 325 Mg Tablet PO 650 mg Q4H PRN Administration Mild Pain (1-3) or Fever Albuterol/Ipratropium 3 ml 06/23/25 18:04 Ipratropium 0.5 Mg/Albuterol Sulfate 2.5 Mg Ampul.Neb 3 Ml INHALATION Q6HRT PRN Shortness Of Breath Or Wheezing Carvedilol 12.5 mg 06/20/25 09:00 06/24/25 09:24 Carvedilol 12.5 Mg Tablet PO 12.5 mg Q12HR HIPOLITO Administration Dextrose 12.5 gm 06/19/25 22:22 Dextrose 50% 25 Gm/50 Ml Syringe IV PUSH PRN PRN Hypoglycemia Protocol Doxepin HCl 25 mg 06/19/25 22:30 06/23/25 22:46 Doxepin Hcl 25 Mg Capsule PO 25 mg HS HIPOLITO Administration Doxycycline Hyclate 100 mg 06/21/25 21:00 06/24/25 09:24 Doxycycline Hyclate 100 Mg Tablet PO 06/25/25 21:01 100 mg Q12HR HIPOLITO Administration Fluoxetine HCl 40 mg 06/20/25 09:00 06/24/25 09:24 Fluoxetine Hcl 20 Mg Capsule PO 40 mg DAILY HIPOLITO Administration Furosemide 20 mg 06/21/25 17:00 06/24/25 09:24 Furosemide 20 Mg Tablet PO 20 mg BID HIPOLITO Administration Glucose 15 gm 06/19/25 22:22 Glucose Oral Gel 15 Gm Of Glucse In 37.5 Gm Tube PO PRN PRN Hypoglycemia Protocol Cefepime HCl 2 gm/ Sodium 50 mls @ 100 mls/hr 06/19/25 22:00 06/24/25 13:54 Chloride IVPB 06/25/25 23:59 100 mls/hr Q8HR HIPOLITO Administration Dextrose 1,000 mls @ 100 mls/hr 06/19/25 22:22 Dextrose 5% 1,000 Ml IVPB PRN PRN Hypoglycemia Protocol Insulin Aspart 2 - 5 units 06/20/25 12:00 06/24/25 12:18 Insulin Aspart (*Bkc) 100 Units/Ml SUB-Q Not Given TIDWM [facility] Protocol Insulin Aspart 1 - 2 units 06/20/25 21:00 06/23/25 22:47 Insulin Aspart (*Bkc) 100 Units/Ml SUB-Q Not Given HS [facility] Protocol Metronidazole 500 mg 06/21/25 22:00 06/24/25 13:53 Metronidazole 500 Mg Tablet PO 06/26/25 14:01 500 mg Q8HR [facility]IPOLITO Administration Ondansetron HCl 4 mg 06/19/25 15:05 06/19/25 20:36 Ondansetron Inj 4 Mg/2 Ml Vial IV PUSH 4 mg Q4H PRN Administration Nausea Pantoprazole Sodium 40 mg 06/22/25 09:00 06/24/25 09:24 Pantoprazole 40 Mg Tablet PO 40 mg QAM [facility]IPOLITO Administration Potassium Chloride 40 meq 06/24/25 09:00 06/24/25 09:24 Potassium Chloride 20 Meq Packet (For Liquid) PO 06/24/25 17:01 40 meq BID HIPOLITO Administration Radiology Results: ITS Impressions Chest X-Ray 06/19/25 12:09 IMPRESSION: 1. Cardiomegaly with pulmonary vascular congestion. 2. Opacities in the left mid and lower lung zones which could represent atelectasis and/or pneumonia. 3. Elevation of the right hemidiaphragm. Venous Doppler Study 06/20/25 16:52 Impression: 1: Lower extremity venous structures not visualized due to body habitus. Cannot exclude deep venous thrombosis. Renal Ultrasound 06/20/25 17:00 Impression: 1: Limited study due to patient body habitus. No significant abnormality of the right kidney identified. Left kidney not visualized. Labs Labs: Laboratory Results - last 24 hr 06/23/25 06/23/25 06/24/25 15:59 20:20 04:36 WBC 6.9 RBC 2.85 L Hgb 7.4 L Hct 25.2 L MCV 88.4 MCH 26.0 MCHC 29.4 L RDW 15.3 H Plt Count 134 L MPV 9.8 Immature Gran % (Auto) 0.7 H Neut % (Auto) 72.6 Lymph % (Auto) 13.2 L [place] % (Auto) 7.5 Eos % (Auto) 5.4 H Baso % (Auto) 0.6 Lymph # (Auto) 0.91 [place] # (Auto) 0.5 Eos # (Auto) 0.4 H Baso # (Auto) 0.0 Abs Immat Gran (auto) 0.05 H Absolute Neuts (auto) 5.0 Absolute Nucleated RBC 0.000 Band Neutrophils % Not Reportable Nucleated RBC % 0.0 Platelet Estimate Decreased Hypochromasia 1+ Anisocytosis 1+ Schistocytes None seen Sodium 134 L Potassium 3.0 L Chloride 86 L Carbon Dioxide 39 H Anion Gap 9 BUN 47 H Creatinine 1.40 H Estim Creat Clear Calc 83 Estimated GFR 39 L Glucose 151 H POC Capillary Glucose 164 H 169 H Calcium 8.2 L Magnesium 1.6 Total Bilirubin 0.6 AST 29 ALT 14 Alkaline Phosphatase 65 Total Protein 8.5 H Albumin 3.2 L IgG 3224 H IgA 657 H IgM 100 Rheumatoid Factor < 12.0 06/24/25 06/24/25 07:39 12:04 WBC RBC Hgb Hct MCV MCH MCHC RDW Plt Count MPV Immature Gran % (Auto) Neut % (Auto) Lymph % (Auto) [place] % (Auto) Eos % (Auto) Baso % (Auto) Lymph # (Auto) [place] # (Auto) Eos # (Auto) Baso # (Auto) Abs Immat Gran (auto) Absolute Neuts (auto) Absolute Nucleated RBC Band Neutrophils % Nucleated RBC % Platelet Estimate Hypochromasia Anisocytosis Schistocytes Sodium Potassium Chloride Carbon Dioxide Anion Gap BUN Creatinine Estim Creat Clear Calc Estimated GFR Glucose POC Capillary Glucose 151 H 153 H Calcium Magnesium Total Bilirubin AST ALT Alkaline Phosphatase Total Protein Albumin IgG IgA IgM Rheumatoid Factor
[2025-06-24] MEDS: DOXEPIN HCL 25 MG CAPSULE PO (21:01)
[2025-06-25] VITALS (13 sets, daily range): BP systolic 141–149; BP diastolic 54–63; PULSE 71–82; RESP 18–23; TEMP 36.1–36.7; O2SAT 90–99
[2025-06-25] MEDS: CEFEPIME 2 GM in SODIUM CHLORIDE 0.9% IV 50 ML 100 ML IVPB ×3 (05:18→21:00)
[2025-06-25 05:51] LABS: Hematocrit 26.1 % (37.0-47.0); Hemoglobin 7.6 g/dL (12.0-15.0); Mean Corpuscular HGB Conc 29.1 g/dl (32-36); Mean Corpuscular Hemoglobin 26.1 pg (26-34); Mean Corpuscular Volume 89.7 fl (80-100); Platelet Count Result 131 k/mm3 (150-375); Red Blood Count 2.91 M/mm3 (4.2-5.4); White Blood Count 7.6 K/mm3 (4.5-10.0)
[2025-06-25 06:17] LABS: Albumin Level 3.2 g/dL (3.5-5.1); Blood Urea Nitrogen 40 mg/dL (7-17); Calcium 8.2 mg/dL (8.4-10.2); Chloride 86 mmol/L (98-107); Estimated CRCL calculation 100 ml/min; Estimated Glomerular Filt Rate 48; Glucose 154 mg/dL (65-110); Magnesium 1.6 mg/dL (1.6-2.3); Potassium 3.3 mmol/L (3.4-5.0); Sodium 133 mmol/L (137-145)
[2025-06-25 06:41] LABS: Anion Gap 9 mmol/L (4-12); Carbon Dioxide 38 mmol/L (22-30)
[2025-06-25] MEDS: DOXYCYCLINE HYCLATE 100 MG TABLET PO ×2 (09:11→20:53)
[2025-06-25] MEDS: PANTOPRAZOLE 40 MG TABLET PO (09:11)
[2025-06-25] MEDS: ACETAMINOPHEN 325 MG TABLET 650 MG PO (09:12)
[2025-06-25] MEDS: FUROSEMIDE 20 MG TABLET PO ×2 (09:12→17:07)
[2025-06-25] MEDS: POTASSIUM CHLORIDE 20 MEQ PACKET (FOR LIQUID) 40 MEQ PO (09:13)
[2025-06-25] MEDS: MAGNESIUM SULF 2 GM/WATER 50ML 2 GM/50 ML BAG IVPB (09:13)
[2025-06-25] MEDS: POTASSIUM/PHOSPHORUS/SODIUM 1.5 GM PACKET 1 PACKET PO (09:19)
--- NOTE | 2025-06-25 13:10 | P.PNNP_ITS ---
Progress Note: A&P Assessment and Plan (1) Acute kidney injury: Code(s): N17.9 - Acute kidney failure, unspecified Status: Acute Assessment and Plan: * improvement noted * as noted on admisson (creatinine of 1.92mg/dL) * suspect multifactorial etiology: * anemia * CHF exacerbation * infection (pneumonia +/- UTI) * hypoxia * need for diuretic therapy * chronic quevedo catheter (?) * other (?) * evaluation to date noted * renal ultrasound noted (limited results) * urine electrolytes slightly prerenal (by FeUrea) * UA suggestive of infection * urine eosinophils negative * CPK normal * moderate proteinuria * still making urine (albeit with diuretics) and no critical electrolytes * follow trend of repeat labs and UOP (2) Stage 3 chronic kidney disease: Code(s): N18.30 - Chronic kidney disease, stage 3 unspecified Status: Chronic Assessment and Plan: * baseline creatinine runs around 1.1 - 1.6mg/dL since August 2024 * however, has been as low as 0.99mg/dL * noted fluctuations usually occur with acute hospitalizations... * on last hospital discharge ([facility] in April 2025), creatinine was 1.43mg/dL * this causes her to bounce between CKD stage 3A and stage 3B * presumably secondary to diabetes, hypertension, CHF + diuretic therapy, vascular disease, and obesity (3) Acute on chronic hypoxic respiratory failure: Code(s): J96.21 - Acute and chronic respiratory failure with hypoxia Status: Acute Assessment and Plan: * acute respiratory failure due to: * CHF exacerbation * anemia * possible pneumonia * other (?) * chronic component due to: * OHS * AMANDA * COPD(?) * chronic CHF * bed-bound status(?) * known baseline oxygen requirement of 3L by NC while awake and BiPAP during naps and sleep. * admission XR noted: * cardiomegaly with pulmonary vascular congestion, opacities in the left mid and lower lung zones which could represent atelectasis and/or pneumonia * viral testing for influenza/RSV/COVID negative * Legionella urine antigen negative * continue current therapy as outlined (4) Acute on chronic diastolic heart failure: Code(s): I50.33 - Acute on chronic diastolic (congestive) heart failure Status: Acute Assessment and Plan: * as suggested by admission testing and exam * BNP 9940 * CXR with pulmonary vascular congestion with cardiomegaly * symptoms of shortness of breath * Echo (on 06/20) noted: * normal left ventricular size with well-preserved systolicfunction of 65 - 70% * mildly sclerotic aortic valve which is not stenotic * mild mitral annular calcification * mild to moderate tricuspid regurgitation * Moderate pulmonary hypertension, estimated pulmonary arterial systolic pressure is 54 mmHg * on lasix * follow I/Os and daily weights * almost 11.5L negative since admission... * Cardiology following (5) Pneumonia: Code(s): J18.9 - Pneumonia, unspecified organism Status: Acute Assessment and Plan: * suspected based on admission CXR * noted productive cough (with reported green sputum) * follow culture data - negative to date * on antibiotics * follow respiratory status (6) Anemia: Qualifiers: Anemia type: unspecified type Qualified Code(s): D64.9 - Anemia, unspecified Code(s): D64.9 - Anemia, unspecified Status: Acute Assessment and Plan: * acute on chronic * Hgb 6.5 on admission * Hgb down to 6.8 on 06/21 * PRBC transfusion per protocol -- 2 units so far this admission * noted hemoccult positive stool * anemia studies c/w iron deficiency * unable to give IV iron due to allergy * GI recommendations noted -- high risk for EGD; conservative therapy * ruling out multiple myeloma: * SPEP/UPEP along with serum/urine immunofixation pending * check kappa/lambda ratio * follow trend of H/H (7) UTI (urinary tract infection): Code(s): N39.0 - Urinary tract infection, site not specified Status: Acute Assessment and Plan: * admission UA suggestive * on antibiotics * unfortunately - no urine culture done (8) Diabetes: Code(s): E11.9 - Type 2 diabetes mellitus without complications Status: Acute Assessment and Plan: * follow accu-cheks * glycemic control per hospitalist Not much else to add -- will continue to follow from a distance. L Subjective Date/time seen: 06/25/25 13:10 Interval history: Follow-up for acute kidney injury/acute renal failure on chronic kidney disease. Still reports some shortness of breath when sitting up but otherwise it seems to be doing better in general since admission; no other acute complaints voiced when seen; no apparent distress voiced at the time of my visit. Exam 2 Narrative: General: large female in NAD Heart: normal S1 and S2; no rub Lungs: clear anteriorly; decreased at bases Abdomen: obese but soft, nontender, nondistended, positive bowel sounds Extremities: no cyanosis or clubbing; chronic edema Skin: + lymphedema changes apparent Objective Data Vital Signs Vital Signs: Vital Signs Temp Pulse Resp BP Pulse Ox O2 Del Method O2 Flow Rate 06/25/25 12:28 97 Nasal Cannula 3 06/25/25 12:00 77 06/25/25 09:12 82 06/25/25 08:00 74 06/25/25 05:54 97 F L 73 18 148/60 H 99 06/25/25 04:00 73 06/25/25 01:48 19 BiPAP 06/25/25 00:00 71 06/24/25 22:00 23 H BiPAP 06/24/25 21:39 77 06/24/25 21:01 78 06/24/25 20:46 97.6 F 79 20 137/48 L 96 06/24/25 20:28 96 Nasal Cannula 3 Intake/Output Intake/Output: Intake & Output 06/22/25 06/23/25 06/24/25 06/25/25 23:59 23:59 23:59 23:59 Intake Total 1720 2580 1020 250 Output Total 4150 7300 3850 5100 Balance -9240 -4720 -2830 -9590 Meds/Results Medications: Active Medications Generic Name Dose Route Start Last Admin Trade Name Freq PRN Reason Stop Dose Admin Acetaminophen 650 mg 06/19/25 15:05 06/25/25 09:12 Acetaminophen 325 Mg Tablet PO 650 mg Q4H PRN Administration Mild Pain (1-3) or Fever Albuterol/Ipratropium 3 ml 06/23/25 18:04 Ipratropium 0.5 Mg/Albuterol Sulfate 2.5 Mg Ampul.Neb 3 Ml INHALATION Q6HRT PRN Shortness Of Breath Or Wheezing Carvedilol 12.5 mg 06/20/25 09:00 06/25/25 09:12 Carvedilol 12.5 Mg Tablet PO 12.5 mg Q12HR HIPOLITO Administration Dextrose 12.5 gm 06/19/25 22:22 Dextrose 50% 25 Gm/50 Ml Syringe IV PUSH PRN PRN Hypoglycemia Protocol Doxepin HCl 25 mg 06/19/25 22:30 06/24/25 21:01 Doxepin Hcl 25 Mg Capsule PO 25 mg HS [facility]O Administration Doxycycline Hyclate 100 mg 06/21/25 21:00 06/25/25 09:11 Doxycycline Hyclate 100 Mg Tablet PO 06/25/25 21:01 100 mg Q12HR [facility]OL[facility]O Administration Fluoxetine HCl 40 mg 06/20/25 09:00 06/25/25 09:12 Fluoxetine Hcl 20 Mg Capsule PO 40 mg DAILY [facility] Administration Furosemide 20 mg 06/21/25 17:00 06/25/25 17:07 Furosemide 20 Mg Tablet PO 20 mg BID [facility]O Administration Glucose 15 gm 06/19/25 22:22 Glucose Oral Gel 15 Gm Of Glucse In 37.5 Gm Tube PO PRN PRN Hypoglycemia Protocol Cefepime HCl 2 gm/ Sodium 50 mls @ 100 mls/hr 06/19/25 22:00 06/25/25 14:35 Chloride IVPB 06/25/25 23:59 100 mls/hr Q8HR [facility]O Administration Dextrose 1,000 mls @ 100 mls/hr 06/19/25 22:22 Dextrose 5% 1,000 Ml IVPB PRN PRN Hypoglycemia Protocol Insulin Aspart 2 - 5 units 06/20/25 12:00 06/25/25 12:27 Insulin Aspart (*Bkc) 100 Units/Ml SUB-Q Not Given TIDWM [facility] Protocol Insulin Aspart 1 - 2 units 06/20/25 21:00 06/24/25 21:13 Insulin Aspart (*Bkc) 100 Units/Ml SUB-Q Not Given HS [facility] Protocol Metronidazole 500 mg 06/21/25 22:00 06/25/25 14:36 Metronidazole 500 Mg Tablet PO 06/26/25 14:01 500 mg Q8HR HIPOLITO Administration Ondansetron HCl 4 mg 06/19/25 15:05 06/19/25 20:36 Ondansetron Inj 4 Mg/2 Ml Vial IV PUSH 4 mg Q4H PRN Administration Nausea Pantoprazole Sodium 40 mg 06/22/25 09:00 06/25/25 09:11 Pantoprazole 40 Mg Tablet PO 40 mg QAM HIPOL[facility]O Administration Radiology Results: ITS Impressions Chest X-Ray 06/19/25 12:09 IMPRESSION: 1. Cardiomegaly with pulmonary vascular congestion. 2. Opacities in the left mid and lower lung zones which could represent atelectasis and/or pneumonia. 3. Elevation of the right hemidiaphragm. Venous Doppler Study 06/20/25 16:52 Impression: 1: Lower extremity venous structures not visualized due to body habitus. Cannot exclude deep venous thrombosis. Renal Ultrasound 06/20/25 17:00 Impression: 1: Limited study due to patient body habitus. No significant abnormality of the right kidney identified. Left kidney not visualized. Labs Labs: Laboratory Tests 06/25/25 05:01 06/25/25 05:01 Calcium 8.2 L Phosphorus 2.2 L Magnesium 1.6 Albumin 3.2 L Microbiology 06/19/25 13:57 Blood Blood Culture - Final 06/19/25 14:17 Blood Blood Culture - Final
--- NOTE | 2025-06-25 13:10 | PM.PNNEP ---
Progress Note: A&P Assessment and Plan (1) Acute kidney injury: Code(s): N17.9 - Acute kidney failure, unspecified Status: Acute Assessment and Plan: improvement noted as noted on admisson (creatinine of 1.92mg/dL) suspect multifactorial etiology: anemia CHF exacerbation infection (pneumonia +/- UTI) hypoxia need for diuretic therapy chronic quevedo catheter (?) other (?) evaluation to date noted renal ultrasound noted (limited results) urine electrolytes slightly prerenal (by FeUrea) UA suggestive of infection urine eosinophils negative CPK normal moderate proteinuria still making urine (albeit with diuretics) and no critical electrolytes follow trend of repeat labs and UOP (2) Stage 3 chronic kidney disease: Code(s): N18.30 - Chronic kidney disease, stage 3 unspecified Status: Chronic Assessment and Plan: baseline creatinine runs around 1.1 - 1.6mg/dL since August 2024 however, has been as low as 0.99mg/dL noted fluctuations usually occur with acute hospitalizations... on last hospital discharge ([facility] in April 2025), creatinine was 1.43mg/dL this causes her to bounce between CKD stage 3A and stage 3B presumably secondary to diabetes, hypertension, CHF + diuretic therapy, vascular disease, and obesity (3) Acute on chronic hypoxic respiratory failure: Code(s): J96.21 - Acute and chronic respiratory failure with hypoxia Status: Acute Assessment and Plan: acute respiratory failure due to: CHF exacerbation anemia possible pneumonia other (?) chronic component due to: OHS AMANDA COPD(?) chronic CHF bed-bound status(?) known baseline oxygen requirement of 3L by NC while awake and BiPAP during naps and sleep. admission XR noted: cardiomegaly with pulmonary vascular congestion, opacities in the left mid and lower lung zones which could represent atelectasis and/or pneumonia viral testing for influenza/RSV/COVID negative Legionella urine antigen negative continue current therapy as outlined (4) Acute on chronic diastolic heart failure: Code(s): I50.33 - Acute on chronic diastolic (congestive) heart failure Status: Acute Assessment and Plan: as suggested by admission testing and exam BNP 9940 CXR with pulmonary vascular congestion with cardiomegaly symptoms of shortness of breath Echo (on 06/20) noted: normal left ventricular size with well-preserved systolicfunction of 65 - 70% mildly sclerotic aortic valve which is not stenotic mild mitral annular calcification mild to moderate tricuspid regurgitation Moderate pulmonary hypertension, estimated pulmonary arterial systolic pressure is 54 mmHg on lasix follow I/Os and daily weights almost 11.5L negative since admission... Cardiology following (5) Pneumonia: Code(s): J18.9 - Pneumonia, unspecified organism Status: Acute Assessment and Plan: suspected based on admission CXR noted productive cough (with reported green sputum) follow culture data - negative to date on antibiotics follow respiratory status (6) Anemia: Qualifiers: Anemia type: unspecified type Qualified Code(s): D64.9 - Anemia, unspecified Code(s): D64.9 - Anemia, unspecified Status: Acute Assessment and Plan: acute on chronic Hgb 6.5 on admission Hgb down to 6.8 on 06/21 PRBC transfusion per protocol -- 2 units so far this admission noted hemoccult positive stool anemia studies c/w iron deficiency unable to give IV iron due to allergy GI recommendations noted -- high risk for EGD; conservative therapy ruling out multiple myeloma: SPEP/UPEP along with serum/urine immunofixation pending check kappa/lambda ratio follow trend of H/H (7) UTI (urinary tract infection): Code(s): N39.0 - Urinary tract infection, site not specified Status: Acute Assessment and Plan: admission UA suggestive on antibiotics unfortunately - no urine culture done (8) Diabetes: Code(s): E11.9 - Type 2 diabetes mellitus without complications Status: Acute Assessment and Plan: follow accu-cheks glycemic control per hospitalist Not much else to add -- will continue to follow from a distance. Subjective Date/time seen: 06/25/25 13:10 Interval history: Follow-up for acute kidney injury/acute renal failure on chronic kidney disease. Still reports some shortness of breath when sitting up but otherwise it seems to be doing better in general since admission; no other acute complaints voiced when seen; no apparent distress voiced at the time of my visit. Exam Narrative: General: large female in NAD Heart: normal S1 and S2; no rub Lungs: clear anteriorly; decreased at bases Abdomen: obese but soft, nontender, nondistended, positive bowel sounds Extremities: no cyanosis or clubbing; chronic edema Skin: + lymphedema changes apparent Objective Data Vital Signs Vital Signs: Vital Signs Temp Pulse Resp BP Pulse Ox O2 Del Method O2 Flow Rate 06/25/25 12:28 97 Nasal Cannula 3 06/25/25 12:00 77 06/25/25 09:12 82 06/25/25 08:00 74 06/25/25 05:54 97 F L 73 18 148/60 H 99 06/25/25 04:00 73 06/25/25 01:48 19 BiPAP 06/25/25 00:00 71 06/24/25 22:00 23 H BiPAP 06/24/25 21:39 77 06/24/25 21:01 78 06/24/25 20:46 97.6 F 79 20 137/48 L 96 06/24/25 20:28 96 Nasal Cannula 3 Intake/Output Intake/Output: Intake & Output 06/22/25 06/23/25 06/24/25 06/25/25 23:59 23:59 23:59 23:59 Intake Total 1720 2580 1020 250 Output Total 4150 7300 3850 5100 Balance -1753 -5612 -2120 -2300 Meds/Results Medications: Active Medications Generic Name Dose Route Start Last Admin Trade Name Freq PRN Reason Stop Dose Admin Acetaminophen 650 mg 06/19/25 15:05 06/25/25 09:12 Acetaminophen 325 Mg Tablet PO 650 mg Q4H PRN Administration Mild Pain (1-3) or Fever Albuterol/Ipratropium 3 ml 06/23/25 18:04 Ipratropium 0.5 Mg/Albuterol Sulfate 2.5 Mg Ampul.Neb 3 Ml INHALATION Q6HRT PRN Shortness Of Breath Or Wheezing Carvedilol 12.5 mg 06/20/25 09:00 06/25/25 09:12 Carvedilol 12.5 Mg Tablet PO 12.5 mg Q12HR HIPOLITO Administration Dextrose 12.5 gm 06/19/25 22:22 Dextrose 50% 25 Gm/50 Ml Syringe IV PUSH PRN PRN Hypoglycemia Protocol Doxepin HCl 25 mg 06/19/25 22:30 06/24/25 21:01 Doxepin Hcl 25 Mg Capsule PO 25 mg HS HIPOLITO Administration Doxycycline Hyclate 100 mg 06/21/25 21:00 06/25/25 09:11 Doxycycline Hyclate 100 Mg Tablet PO 06/25/25 21:01 100 mg Q12HR HIPOLITO Administration Fluoxetine HCl 40 mg 06/20/25 09:00 06/25/25 09:12 Fluoxetine Hcl 20 Mg Capsule PO 40 mg DAILY HIPOLITO Administration Furosemide 20 mg 06/21/25 17:00 06/25/25 17:07 Furosemide 20 Mg Tablet PO 20 mg BID HIPOLITO Administration Glucose 15 gm 06/19/25 22:22 Glucose Oral Gel 15 Gm Of Glucse In 37.5 Gm Tube PO PRN PRN Hypoglycemia Protocol Cefepime HCl 2 gm/ Sodium 50 mls @ 100 mls/hr 06/19/25 22:00 06/25/25 14:35 Chloride IVPB 06/25/25 23:59 100 mls/hr Q8HR HIPOLITO Administration Dextrose 1,000 mls @ 100 mls/hr 06/19/25 22:22 Dextrose 5% 1,000 Ml IVPB PRN PRN Hypoglycemia Protocol Insulin Aspart 2 - 5 units 06/20/25 12:00 06/25/25 12:27 Insulin Aspart (*Bkc) 100 Units/Ml SUB-Q Not Given TIDWM HIPOLITO Protocol Insulin Aspart 1 - 2 units 06/20/25 21:00 06/24/25 21:13 Insulin Aspart (*Bkc) 100 Units/Ml SUB-Q Not Given HS HIPOLITO Protocol Metronidazole 500 mg 06/21/25 22:00 06/25/25 14:36 Metronidazole 500 Mg Tablet PO 06/26/25 14:01 500 mg Q8HR HIPOLITO Administration Ondansetron HCl 4 mg 06/19/25 15:05 06/19/25 20:36 Ondansetron Inj 4 Mg/2 Ml Vial IV PUSH 4 mg Q4H PRN Administration Nausea Pantoprazole Sodium 40 mg 06/22/25 09:00 06/25/25 09:11 Pantoprazole 40 Mg Tablet PO 40 mg QAM HIPOLITO Administration Radiology Results: ITS Impressions Chest X-Ray 06/19/25 12:09 IMPRESSION: 1. Cardiomegaly with pulmonary vascular congestion. 2. Opacities in the left mid and lower lung zones which could represent atelectasis and/or pneumonia. 3. Elevation of the right hemidiaphragm. Venous Doppler Study 06/20/25 16:52 Impression: 1: Lower extremity venous structures not visualized due to body habitus. Cannot exclude deep venous thrombosis. Renal Ultrasound 06/20/25 17:00 Impression: 1: Limited study due to patient body habitus. No significant abnormality of the right kidney identified. Left kidney not visualized. Labs Labs: Laboratory Tests 06/25/25 05:01 06/25/25 05:01 Calcium 8.2 L Phosphorus 2.2 L Magnesium 1.6 Albumin 3.2 L Microbiology 06/19/25 13:57 Blood Blood Culture - Final 06/19/25 14:17 Blood Blood Culture - Final
--- NOTE | 2025-06-25 13:49 | PM.IMPN ---
Progress Note: A&P Assessment and Plan (1) Acute on chronic hypoxic respiratory failure: Code(s): J96.21 - Acute and chronic respiratory failure with hypoxia Status: Acute Assessment and Plan: Acute on chronic hypoxic respiratory failure - Baseline 3 L nasal cannula while awake and also uses 3L with BiPAP during naps and sleep. CXR shows opacities in the left mid and lower lung zones c/w atelectasis and/or pneumonia and elevated right hemidiaphragm. MRSA positive. Quad viral screen negative. Procalcitonin 10.5. Started on vancomycin, cefepime, doxycycline, and metronidazole. Urine legionella antigen negative. Blood culture NGTD Sputum Cx ordered At baseline O2 requirement and no wheezing. DuoNebs available prn. Continue Doxy, Flagyl and Cefepime. Vanco stopped and length of Doxycycline course increased. Okay to discharge once she has completed Cefepime today (2) Pneumonia: Code(s): J18.9 - Pneumonia, unspecified organism Status: Acute Assessment and Plan: As above (3) Acute on chronic diastolic heart failure: Code(s): I50.33 - Acute on chronic diastolic (congestive) heart failure Status: Acute Assessment and Plan: BNP 9940. CXR also reports pulmonary vascular congestion with cardiomegaly. Patient takes torsemide and Coreg at home. Echo showing EF 65-70%, RV enlargement with RV hypokinesis and mild-mod TR and RVSP 45mmHg. Suspect she has lymphedema and a component of right sided failure. BNP 3500. Started on Lasix IV but changed to oral Lasix quickly. Since changing to oral Lasix, patient with excessive UOP with Fluid balance -11.5L. Could be post-ATN diuresis. Could be from excessive fluid intake. Fluid restriction ordered. Strict I/O, daily weight. Follow I/Os (4) Acute on chronic kidney failure: Code(s): N17.9 - Acute kidney failure, unspecified; N18.9 - Chronic kidney disease, unspecified Status: Acute Assessment and Plan: CRISTA/CKD - Creatinine baseline about 1.1-1.6 on review of records. Cr peaked at 2.02 but now trending down. Increased UOP noted. Total protein high with renal insufficieny and anemia - consider MM. Nephrology consulted. Complement normal. TCk normal. Urine eos negative. Urine Prot 1.4gm. IgG elevated at 3224 and IgA 657. RF <12. Cr better at 1.2 Will monitor renal function, UOP and electrolytes (5) UTI (urinary tract infection): Code(s): N39.0 - Urinary tract infection, site not specified Status: Acute Assessment and Plan: Complicated UTI with patient having a chronic indwelling Wren catheter. Wren was changed in the ER. Not sure if catheter is for comfort, sanitation and/or retention. UA noted but UCx grew 50-100K colonies of 3 organisms but no cx performed. Continue abx as above (6) Anemia: Qualifiers: Anemia type: unspecified type Qualified Code(s): D64.9 - Anemia, unspecified Code(s): D64.9 - Anemia, unspecified Status: Acute Assessment and Plan: Anemia - acute on chronic. Hgb 6.5 on admission status post 1 unit PRBC transfusion. Hgb again 6.8 and a 2nd unit given. B12/folate normal. Iron deficiency with ISat 12% and Ferritin 36. Stool occult blood is positive suggestive of GI bleed. GI has been consulted. On PPI. Hgb up to 7 range and stable. Monitor serial hemoglobin. She is allergic to iron (7) Heme positive stool: Code(s): R19.5 - Other fecal abnormalities Status: Acute Assessment and Plan: FOBT positive stool - GI consulted. Anemia workup ordered. Iron studies noted but allergic to iron. B12/foalte levels normal. Deemed high risk for endoscopy. Continue PPI. (8) Elevated troponin: Code(s): R79.89 - Other specified abnormal findings of blood chemistry Status: Acute Assessment and Plan: Elevated troponin - EKG showing no acute ST/T wave changes. Troponin peaked at 0.58. Cardiology consulted. She had MPI at OSH 10/19/24 per EPIC review that demonstrated no obvious ischemia. [place] related to demand ischemia from above and renal insufficiency. Not ACS. No ASA due to concerns for GI bleed (9) Morbid obesity: Code(s): E66.01 - Morbid (severe) obesity due to excess calories Status: Acute Assessment and Plan: Morbid obesity - BMI 91. Would benefit from calorie restriction and weight loss medication. (10) AMANDA (obstructive sleep apnea): Code(s): G47.33 - Obstructive sleep apnea (adult) (pediatric) Status: Acute Assessment and Plan: AMANDA - on BiPAP chronically at night and during naps at daytime with 3L bleed in (11) Diabetes: Code(s): E11.9 - Type 2 diabetes mellitus without complications Status: Acute Assessment and Plan: Insulin-dependent diabetes mellitus - A1c 5.8%. Glucose remains well controlled. Continue AccuCheks covering with sliding scale. Hypoglycemia protocol available as needed. Continue to monitor. Plan Code status full code DVT prophylaxis - SCDs but not sure able to fit. No anti-coagulation due to anemia and +FOBT Bed-bound status - PT/OT Subjective Date/time seen: 06/25/25 13:49 Interval history: 60-year-old female with class 3 obesity with BMI 91, bed-bound, chronic indwelling Wren catheter, CHF, obstructive disease on BiPAP during naps and sleep, chronic respiratory failure on 3 L nasal cannula continuously flu, insulin-dependent diabetes mellitus. The patient presents to [facility] ER from senior care where she is a resident via EMS with shortness of breath. Slept well. Eating okay. No Cp. Cough mild and nonproductive. SOB better. Still SOB when supine. Exam Narrative: AF 97.0 148/60 77 18 97% 3L Gen - NARD; bipap in place Chest - clear anteriorly CV - RRR S1/S2. Tele showing no significant dysrhythmias Abd - Soft, morbidly obese. No significant tenderness. Abdominal wall edema - Wren catheter secured draining clear yellow urine. Ext - Severe bilateral lower extremity lymphedema. Skin - Ulcerations and excoriations noted in multiple skin folds Neuro - Alert and appropriate Psych - Normal mood and affect. Objective Data Vital Signs Vital Signs: Vital Signs - 24 hr 06/24/25 14:00 06/24/25 16:00 06/24/25 20:28 Temperature 98.2 F Pulse Rate 76 73 Respiratory Rate 18 Blood Pressure 150/51 H Pulse Oximetry 98 96 Oxygen Delivery Nasal Cannula Oxygen Flow Rate 3 06/24/25 20:46 06/24/25 21:01 06/24/25 21:39 Temperature 97.6 F Pulse Rate 79 78 77 Respiratory Rate 20 Blood Pressure 137/48 L Pulse Oximetry 96 Oxygen Delivery Oxygen Flow Rate 06/24/25 22:00 06/25/25 00:00 06/25/25 01:48 Temperature Pulse Rate 71 Respiratory Rate 23 H 19 Blood Pressure Pulse Oximetry Oxygen Delivery BiPAP BiPAP Oxygen Flow Rate 06/25/25 04:00 06/25/25 05:54 06/25/25 08:00 Temperature 97 F L Pulse Rate 73 73 74 Respiratory Rate 18 Blood Pressure 148/60 H Pulse Oximetry 99 Oxygen Delivery Oxygen Flow Rate 06/25/25 09:12 06/25/25 12:00 06/25/25 12:28 Temperature Pulse Rate 82 77 Respiratory Rate Blood Pressure Pulse Oximetry 97 Oxygen Delivery Nasal Cannula Oxygen Flow Rate 3 Intake/Output Intake/Output: Intake & Output 06/22/25 06/23/25 06/24/25 06/25/25 23:59 23:59 23:59 23:59 Intake Total 1720 2580 1020 250 Output Total 4150 7300 3850 3400 [facility] -2430 -4720 -2830 -3150 Meds/Results Medications: Active Medications Generic Name Dose Route Start Last Admin Trade Name Freq PRN Reason Stop Dose Admin Acetaminophen 650 mg 06/19/25 15:05 06/25/25 09:12 Acetaminophen 325 Mg Tablet PO 650 mg Q4H PRN Administration Mild Pain (1-3) or Fever Albuterol/Ipratropium 3 ml 06/23/25 18:04 Ipratropium 0.5 Mg/Albuterol Sulfate 2.5 Mg Ampul.Neb 3 Ml INHALATION Q6HRT PRN Shortness Of Breath Or Wheezing Carvedilol 12.5 mg 06/20/25 09:00 06/25/25 09:12 Carvedilol 12.5 Mg Tablet PO 12.5 mg Q12HR HIPOLITO Administration Dextrose 12.5 gm 06/19/25 22:22 Dextrose 50% 25 Gm/50 Ml Syringe IV PUSH PRN PRN Hypoglycemia Protocol Doxepin HCl 25 mg 06/19/25 22:30 06/24/25 21:01 Doxepin Hcl 25 Mg Capsule PO 25 mg HS HIPOLITO Administration Doxycycline Hyclate 100 mg 06/21/25 21:00 06/25/25 09:11 Doxycycline Hyclate 100 Mg Tablet PO 06/25/25 21:01 100 mg Q12HR HIPOLITO Administration Fluoxetine HCl 40 mg 06/20/25 09:00 06/25/25 09:12 Fluoxetine Hcl 20 Mg Capsule PO 40 mg DAILY HIPOLITO Administration Furosemide 20 mg 06/21/25 17:00 06/25/25 09:12 Furosemide 20 Mg Tablet PO 20 mg BID HIPOLITO Administration Glucose 15 gm 06/19/25 22:22 Glucose Oral Gel 15 Gm Of Glucse In 37.5 Gm Tube PO PRN PRN Hypoglycemia Protocol Cefepime HCl 2 gm/ Sodium 50 mls @ 100 mls/hr 06/19/25 22:00 06/25/25 05:48 Chloride IVPB 06/25/25 23:59 Infused Q8HR HIPOLITO Infusion Dextrose 1,000 mls @ 100 mls/hr 06/19/25 22:22 Dextrose 5% 1,000 Ml IVPB PRN PRN Hypoglycemia Protocol Insulin Aspart 2 - 5 units 06/20/25 12:00 06/25/25 12:27 Insulin Aspart (*Bkc) 100 Units/Ml SUB-Q Not Given TIDWM HIPOLITO Protocol Insulin Aspart 1 - 2 units 06/20/25 21:00 06/24/25 21:13 Insulin Aspart (*Bkc) 100 Units/Ml SUB-Q Not Given HS HIPOLITO Protocol Metronidazole 500 mg 06/21/25 22:00 06/25/25 05:18 Metronidazole 500 Mg Tablet PO 06/26/25 14:01 500 mg Q8HR HIPOLITO Administration Ondansetron HCl 4 mg 06/19/25 15:05 06/19/25 20:36 Ondansetron Inj 4 Mg/2 Ml Vial IV PUSH 4 mg Q4H PRN Administration Nausea Pantoprazole Sodium 40 mg 06/22/25 09:00 06/25/25 09:11 Pantoprazole 40 Mg Tablet PO 40 mg QAM HIPOLITO Administration Radiology Results: ITS Impressions Chest X-Ray 06/19/25 12:09 IMPRESSION: 1. Cardiomegaly with pulmonary vascular congestion. 2. Opacities in the left mid and lower lung zones which could represent atelectasis and/or pneumonia. 3. Elevation of the right hemidiaphragm. Venous Doppler Study 06/20/25 16:52 Impression: 1: Lower extremity venous structures not visualized due to body habitus. Cannot exclude deep venous thrombosis. Renal Ultrasound 06/20/25 17:00 Impression: 1: Limited study due to patient body habitus. No significant abnormality of the right kidney identified. Left kidney not visualized. Labs Labs: Laboratory Results - last 24 hr 06/24/25 06/24/2525 16:40 20:52 05:01 WBC 7.6 RBC 2.91 L Hgb 7.6 L Hct 26.1 L MCV 89.7 MCH 26.1 MCHC 29.1 L RDW 15.2 H Plt Count 131 L MPV 9.6 Sodium 133 L Potassium 3.3 L Chloride 86 L Carbon Dioxide 38 H Anion Gap 9 BUN 40 H Creatinine 1.16 H Estim Creat Clear Calc 100 Estimated GFR 48 L Glucose 154 H POC Capillary Glucose 160 H 173 H Calcium 8.2 L Phosphorus 2.2 L Magnesium 1.6 Albumin 3.2 L 06/25/25 06/25/25 08:17 12:22 WBC RBC Hgb Hct MCV MCH MCHC RDW Plt Count MPV Sodium Potassium Chloride Carbon Dioxide Anion Gap BUN Creatinine Estim Creat Clear Calc Estimated GFR Glucose POC Capillary Glucose 141 H 156 H Calcium Phosphorus Magnesium Albumin
[2025-06-25] MEDS: DOXEPIN HCL 25 MG CAPSULE PO (20:52)
[2025-06-26 02:00] VITALS: RESP 26
[2025-06-26 03:07] VITALS: BP 141/63; PULSE 75; RESP 20; TEMP 36.6; O2SAT 96
[2025-06-26 06:04] LABS: Albumin Level 3.2 g/dL (3.5-5.1); Blood Urea Nitrogen 32 mg/dL (7-17); Calcium 8.3 mg/dL (8.4-10.2); Carbon Dioxide > 40 mmol/L (22-30); Chloride 86 mmol/L (98-107); Estimated CRCL calculation 101 ml/min; Estimated Glomerular Filt Rate 49; Glucose 156 mg/dL (65-110); Magnesium 1.6 mg/dL (1.6-2.3); Potassium 3.3 mmol/L (3.4-5.0); Sodium 132 mmol/L (137-145)
[2025-06-26 08:00] VITALS: O2SAT 96
[2025-06-26 08:18] VITALS: PULSE 82
[2025-06-26] MEDS: FUROSEMIDE 20 MG TABLET PO (08:18)
[2025-06-26] MEDS: PANTOPRAZOLE 40 MG TABLET PO (08:18)
[2025-06-26] MEDS: POTASSIUM CHLORIDE 20 MEQ PACKET (FOR LIQUID) 40 MEQ PO (08:19)
[2025-06-26] MEDS: MAGNESIUM SULF 2 GM/WATER 50ML 2 GM/50 ML BAG IVPB (08:45)
[2025-06-26] MEDS: ACETAMINOPHEN 325 MG TABLET 650 MG PO (11:10)
[2025-06-26 13:07] VITALS: BP 139/58; PULSE 75; RESP 18; TEMP 36.3; O2SAT 100
[2025-06-26 13:08] LABS: Immunoglobulin A, Qn 638 mg/dL (87-352); Immunoglobulin G, Qn 3331 mg/dL (586-1602); Immunoglobulin M, Qn 97 mg/dL (26-217)
[2025-06-26 13:08] LABS: Albumin 2.6 g/dL (2.9-4.4); Alpha-1-Globulin 0.3 g/dL (0.0-0.4); Alpha-2-Globulin 0.7 g/dL (0.4-1.0); Gamma Globulin 3.1 g/dL (0.4-1.8)
--- NOTE | 2025-06-26 13:11 | PCNWS ---
Weekly nutritional screen. Patient is tolerating current diet with adequate intake. No weight loss reported. No nutritional needs at this time.
[2025-06-26 14:08] LABS: Albumin, U 12.7 % (.); Alpha-1-Globulin, U 3.9 % (.); Alpha-2-Globulin, U 9.4 % (.); Beta Globulin, U 30.3 % (.); Gamma Globulin, U 43.7 % (.)
[2025-06-26] MEDS: POTASSIUM/PHOSPHORUS/SODIUM 1.5 GM PACKET 1 PACKET PO (15:03)
--- NOTE | 2025-06-26 15:18 | PM.DS ---
DS: Admitting Diagnosis Discharge Date 06/26/25 Admitting Diagnosis Shortness of breath DS: Discharge Diagnosis Discharge Diagnosis (1) Acute on chronic hypoxic respiratory failure: Code(s): J96.21 - Acute and chronic respiratory failure with hypoxia Status: Acute (2) Pneumonia: Code(s): J18.9 - Pneumonia, unspecified organism Status: Acute (3) Acute on chronic diastolic heart failure: Code(s): I50.33 - Acute on chronic diastolic (congestive) heart failure Status: Acute (4) Acute on chronic kidney failure: Code(s): N17.9 - Acute kidney failure, unspecified; N18.9 - Chronic kidney disease, unspecified Status: Acute (5) UTI (urinary tract infection): Code(s): N39.0 - Urinary tract infection, site not specified Status: Acute (6) Anemia: Qualifiers: Anemia type: unspecified type Qualified Code(s): D64.9 - Anemia, unspecified Code(s): D64.9 - Anemia, unspecified Status: Acute (7) Heme positive stool: Code(s): R19.5 - Other fecal abnormalities Status: Acute (8) Elevated troponin: Code(s): R79.89 - Other specified abnormal findings of blood chemistry Status: Acute (9) Morbid obesity: Code(s): E66.01 - Morbid (severe) obesity due to excess calories Status: Acute (10) AMANDA (obstructive sleep apnea): Code(s): G47.33 - Obstructive sleep apnea (adult) (pediatric) Status: Acute (11) Diabetes: Code(s): E11.9 - Type 2 diabetes mellitus without complications Status: Acute DS: Summary Hospital Course Reason for hospitalization: 60-year-old female with class 3 obesity with BMI 91, bed-bound, chronic indwelling Wren catheter, CHF, obstructive disease on BiPAP during naps and sleep, chronic respiratory failure on 3 L nasal cannula continuously flu, insulin-dependent diabetes mellitus. The patient presents to [facility] ER from intermediate where she is a resident via EMS with shortness of breath. Hospital Course: The following issues were addressed during her hospitalization: Acute on chronic hypoxic respiratory failure - Baseline 3 L nasal cannula while awake and also uses 3L with BiPAP during naps and sleep. CXR shows opacities in the left mid and lower lung zones c/w atelectasis and/or pneumonia and elevated right hemidiaphragm. MRSA positive. Quad viral screen negative. Procalcitonin 10.5. She was started on vancomycin, cefepime, doxycycline, and metronidazole. Urine legionella antigen negative. Blood culture NGTD Sputum Cx ordered but not able to be collected. Able to wean to baseline oxygen requirement. DuoNebs available prn. Completed 7 days of treatment. Pneumonia - As above Acute on chronic diastolic heart failure - BNP 9940. CXR also reports pulmonary vascular congestion with cardiomegaly. Patient takes torsemide and Coreg at home. Echo showing EF 65-70%, RV enlargement with RV hypokinesis and mild-mod TR and RVSP 45mmHg. Suspect she has lymphedema and a component of right sided failure. Started on Lasix IV but changed to oral Lasix 20mg BID quickly. BNP down to 3500. Since changing to oral Lasix, patient with excessive UOP with Fluid balance -15.4L. Could be post-ATN diuresis. Could be from excessive fluid intake. We did order fluid restriction. Acute on chronic kidney failure - Creatinine baseline about 1.1-1.6 on review of records. Cr peaked at 2.02 but now trending down. Increased UOP as noted above. Total protein high with renal insufficiency and anemia - consider MM but SPEP showing no M-spike. Nephrology consulted. Complement normal. TCK normal. Urine eos negative. Urine Prot 1.4gm. IgG elevated at 3224 and IgA 657. RF <12. Cr better at 1.13. Have her follow up with Nephrology as outpatient Complicated UTI - Patient having a chronic indwelling Wren catheter. Wren was changed in the ER. Not sure if catheter is for comfort, sanitation and/or retention. UA noted but UCx grew 50-100K colonies of 3 organisms all >100K that included Klebsiella pneumonia, Pseudomonas and Proteus. Pseudomonas and Proteus were sensitive to cefepime but the Klebsiella was ESBL. She had clinical improvement and it was felt that the Klebsiella ESBL was an asymptomatic colonization. Monitor for recurrent symptoms but no plans for ESBL treatment at this time. Discussed with PharmD ID. Anemia - acute on chronic. Hgb 6.5 on admission status post 1 unit PRBC transfusion. Hgb again 6.8 and a 2nd unit given. B12/folate normal. Iron deficiency with ISat 12% and Ferritin 36. Stool occult blood is positive suggestive of GI bleed. GI was consulted. Treated with PPI. Hgb up to 7 range and stable. She is allergic to iron FOBT positive stool - GI consulted. Anemia workup as above. Deemed high risk for endoscopy. Plan to continue PPI. Elevated troponin - EKG showing no acute ST/T wave changes. Troponin peaked at 0.58. Cardiology consulted. She had MPI at OSH 10/19/24 per EPIC review that demonstrated no obvious ischemia. [place] related to demand ischemia from above and renal insufficiency. Not ACS. No ASA due to concerns for GI bleed Morbid obesity - BMI 91. Would benefit from calorie restriction and weight loss medication. AMANDA - on BiPAP chronically at night and during naps at daytime with 3L bleed in which she is compliant with Insulin-dependent diabetes mellitus - A1c 5.8%. Glucose remains well controlled. We have had her off her Lantus here and glucose remained well controlled. Follow for now off her Lantus. Recommend medications that do not contribute to weight gain. She can not tolerate metformin. Consider semaglutide or tirzepatide. Patient overall did well and had clinical improvement. She was able be discharged on 06/26/2025. Discharge instructions discussed including side effects of medications. All questions were answered. Status at Discharge Cognitive/behavioral status at discharge: stable Time Spent with Patient Time attestation: Total time spent providing and/or coordinating discharge services: 35 minutes Time spent: Greater than 30 minutes Exam Narrative: AF 97.4 139/58 75 18 100% 3L Gen - NARD Chest - clear anteriorly CV - RRR S1/S2 Abd - Soft, morbidly obese. No significant tenderness. Abdominal wall edema - Wren catheter secured draining clear yellow urine. Ext - Severe bilateral lower extremity lymphedema. Skin - Ulcerations and excoriations noted in multiple skin folds Neuro - Alert and appropriate Psych - Normal mood and affect. DS: Data Data Completed and Pending Labs on day of discharge: Labs from last 24 hours 06/26/25 06/26/25 06/26/25 12:06 07:54 04:39 Sodium 132 L Potassium 3.3 L Chloride 86 L Carbon Dioxide > 40 H Anion Gap BUN 32 H Creatinine 1.13 H Estim Creat Clear Calc 101 Estimated GFR 49 L Glucose 156 H POC Capillary Glucose 160 H 152 H Calcium 8.3 L Phosphorus 2.1 L Magnesium 1.6 Total Protein (PEP) Albumin 3.2 L Albumin (PEP) Globulin (PEP) Albumin/Globulin Ratio Idjzy-9-Drrzsbbss Zanyt-9-Ezyhjxken Beta Globulins Gamma Globulins PEP Comment Urine Total Protein Urine Albumin (PEP) U Vqeee-2-Euchsiio U Tdtyf-8-Fjtrpgtc U Beta Globulin U Gamma Globulin U Random M-Dirk (%) Urine PEP Note IgG IgA IgM Pr Electrophoresis MSpike CARLOS Interpretation Urine Immunofixation 06/25/25 06/25/25 06/25/25 19:43 17:35 05:01 Sodium Potassium Chloride Carbon Dioxide Anion Gap BUN Creatinine Estim Creat Clear Calc Estimated GFR Glucose POC Capillary Glucose 176 H 155 H Calcium Phosphorus Magnesium Total Protein (PEP) 7.9 Albumin Albumin (PEP) 2.6 L Globulin (PEP) 5.3 H Albumin/Globulin Ratio 0.5 L Vhcft-1-Symyxefpz 0.3 Dveih-0-Aohsijbly 0.7 Beta Globulins 1.2 Gamma Globulins 3.1 H PEP Comment Comment Urine Total Protein Urine Albumin (PEP) U Hgxsy-8-Epbbbxrj U Ntwlt-6-Ltcrtuel U Beta Globulin U Gamma Globulin U Random M-Dirk (%) Urine PEP Note IgG IgA IgM Pr Electrophoresis MSpike Not observed CARLOS Interpretation Urine Immunofixation 06/21/25 06/21/25 17:57 17:53 Sodium Potassium Chloride Carbon Dioxide Anion Gap BUN Creatinine Estim Creat Clear Calc Estimated GFR Glucose POC Capillary Glucose Calcium Phosphorus Magnesium Total Protein (PEP) Albumin Albumin (PEP) Globulin (PEP) Albumin/Globulin Ratio Hgkti-4-Dvdfehuuf Zhexn-8-Acxelftmb Beta Globulins Gamma Globulins PEP Comment Urine Total Protein 38.5 Urine Albumin (PEP) 12.7 U Wyiaw-6-Dyxpkibf 3.9 U Fqler-6-Gjjslrhl 9.4 U Beta Globulin 30.3 U Gamma Globulin 43.7 U Random M-Dirk (%) Not observed Urine PEP Note Comment IgG 3331 H IgA 638 H IgM 97 Pr Electrophoresis MSpike CARLOS Interpretation Comment Urine Immunofixation Comment Discharge Plan Discharge Attending physician on discharge: Raúl Webb Consulting providers: Anita Wren; Terence Borjas Discharging Clinician: Raúl Webb Anticipated Discharge Date/Time: 06/26/25 15:37 Patient Disposition: NH [facility]Asst Living Activity: as tolerated Diet: heart healthy and diabetic Discharge Instructions: Fluid restriction of 1800mL per day Routine urinary catheter care. Change out catheter every 4 weeks. Routine skin care. Frequent turning to prevent bed sores. Continue current wound care to open wounds Oxygen at 3L/min while awake. BiPAP when sleeping at night and with naps with 3L/min bleed-in. Please check glucose before meals and before bed. Record for the doctor's review. Consider adding semaglutide or tirzepatide to her medical regiment Check blood pressure 1 to 2 times a day. Record for the doctor's review. Take precautions to avoid falls. Rise slowly from a lying or sitting position. Pause before standing or walking. Check daily morning weights after voiding. Call the doctor if the patient gains more than 3 lb in 2 days or 5 lb in 1 week. Contact the doctor if the patient has any type of trauma, lightheadedness with standing or other worrisome symptoms. Avoid NSAIDs (ibuprofen, naproxen, Aleve). Tylenol is safe to take. Follow-up with the provider at the facility. Follow-up with Nephrology in 4-6 weeks. Thank you for using [facility] for your health care needs. Patient Instructions: Antibiotic Form, Heart Failure (GEN) Patient Language: Swedish Stand Alone Forms: General Discharge Information Follow-up/Referrals: Terence Borjas MD [Physician, Nephrology] - Call for Appointment UNKNOWN,DOCTOR [Primary Care Provider] - Other Discharge Medications: New furosemide 20 mg Tablet 20 mg PO BID Qty: 60 0RF pantoprazole 40 mg Tablet,Delayed Release (Dr/Ec) 40 mg PO QAM Qty: 30 0RF Continued albuterol sulfate 90 mcg/actuation HFA aerosol inhaler 2 puff INHALATION Q4H PRN (Reason: shortness of breath or wheezing) carvedilol 12.5 mg tablet 12.5 mg PO BID doxepin 25 mg capsule 25 mg PO HS fluoxetine 40 mg capsule 40 mg PO DAILY Glucagon Emergency Kit (human) 1 mg recon soln 1 mg subcut ONCE PRN (Reason: hypoglycemia) nystatin 100,000 unit/gram powder 1 applic TOPICAL BID rosuvastatin 20 mg tablet 20 mg PO HS Discontinued alprazolam 0.25 mg tablet 0.25 mg PO BID PRN (Reason: anxiety) aspirin 81 mg tablet,chewable 81 mg PO DAILY baclofen 10 mg tablet 10 mg PO BID gabapentin 400 mg capsule 400 mg PO HS insulin lispro 100 unit/mL solution 6 unit subcut AC Patient Comments: with meals. Sliding scale 0-149: 0 units, 150-199: 2 units, 200-249: 4 units, 250-299: 6 units, 300-349: 8 units, 350-400: 10 units. If over 400, notify hydrocodone-acetaminophen 5-325 mg tablet 1 tablet PO Q6H PRN (Reason: pain) metolazone 2.5 mg tablet 2.5 mg PO DAILY insulin glargine-yfgn 100 unit/mL (3 mL) insulin pen 20 unit SUBCUT BID torsemide 20 mg tablet 20 mg PO BID cephalexin 500 mg capsule 500 mg PO QID fluconazole 100 mg tablet 100 mg PO DAILY Other Ambulatory Orders: Renal Function Panel (Routine) Timeframe: 2 Weeks Location: Determined by Patient Ordered By: Raúl Webb Date of admission: 06/20/25 10:40 Primary Care Provider: UNKNOWN,DOCTOR Admitting Provider: Carlos Montes Attending physician on admission: Carlos Montes Condition: Stable Hospitalist MIPS Heart Failure (Exclusion) Patient has history of Heart Transplant or Left Ventricular Assistive Device?: No IF YES, STOP HERE Heart Failure (Qualifier) Patient has current or prior documentation of LVEF less than or equal to 40%, or mod/servere depressed LVSF?: No IF NO, STOP HERE
== END 2025-06-26 17:35 | DRG 193 ==
LOC: ANHED 15:10 → ANHIMU 15:40 → ANH2MED 06-26 15:42 → ANHIMU 06-27 08:54
PROVIDERS: Emergency Medicine; General Practice; Internal Medicine Nephrology; Nurse Practitioner Family; Admitting Provider Internal Medicine; Emergency Provider Emergency Medicine; Visit Provider Internal Medicine
DX: J18.9 Pneumonia, unspecified organism (principal); I50.33 Acute on chronic diastolic (congestive) heart failure; J96.21 Acute and chronic respiratory failure with hypoxia; T83.518A Infection and inflammatory reaction due to other urinary catheter, initial encounter; Z68.45 Body mass index [BMI] 70 or greater, adult; L97.819 Non-pressure chronic ulcer of other part of right lower leg with unspecified severity; L97.829 Non-pressure chronic ulcer of other part of left lower leg with unspecified severity; N39.0 Urinary tract infection, site not specified; I24.89 Other forms of acute ischemic heart disease; N17.9 Acute kidney failure, unspecified; I13.0 Hypertensive heart and chronic kidney disease with heart failure and stage 1 through stage 4 chronic kidney disease, or unspecified chronic kidney disease; E66.2 Morbid (severe) obesity with alveolar hypoventilation; R19.5 Other fecal abnormalities; I87.2 Venous insufficiency (chronic) (peripheral); Z96.0 Presence of urogenital implants; E66.813 Obesity, class 3; R60.0 Localized edema; D64.89 Other specified anemias; E11.22 Type 2 diabetes mellitus with diabetic chronic kidney disease; N18.30 Chronic kidney disease, stage 3 unspecified; D63.1 Anemia in chronic kidney disease; E78.5 Hyperlipidemia, unspecified; K21.9 Gastro-esophageal reflux disease without esophagitis; F41.9 Anxiety disorder, unspecified; F32.A Depression, unspecified; B96.1 Klebsiella pneumoniae [K. pneumoniae] as the cause of diseases classified elsewhere; B96.5 Pseudomonas (aeruginosa) (mallei) (pseudomallei) as the cause of diseases classified elsewhere; B96.20 Unspecified Escherichia coli [E. coli] as the cause of diseases classified elsewhere; B96.4 Proteus (mirabilis) (morganii) as the cause of diseases classified elsewhere; I89.0 Lymphedema, not elsewhere classified; L98.499 Non-pressure chronic ulcer of skin of other sites with unspecified severity; I07.1 Rheumatic tricuspid insufficiency; I27.20 Pulmonary hypertension, unspecified; Z99.81 Dependence on supplemental oxygen; Z74.01 Bed confinement status; Z99.89 Dependence on other enabling machines and devices; Z22.322 Carrier or suspected carrier of Methicillin resistant Staphylococcus aureus; Z79.82 Long term (current) use of aspirin; Z79.4 Long term (current) use of insulin
CPT/HCPCS: 36415; 36430; 36600; 71046; 76770; 80048; 80053; 80069; 80202; 81001; 82550; 82570; 82607; 82668; 82728; 82746; 82784; 82805; 82948; 83036; 83540; 83550; 83605; 83735; 83880; 84100; 84145; 84155; 84156; 84165; 84166; 84300; 84443; 84484; 84540; 85014; 85018; 85025; 85027; 85046; 85610; 85730; 85999; 86140; 86160; 86162; 86334; 86335; 86430; 86850; 86900; 86901; 86923; 87040; 87086; 87449; 87637; 87641; 92610; 93005; 93970; 94003; 94640; 94660; 96365; 96367; 96375; 99291; A9270; C1751; C8929; G0378; J0692; J1836; J1938; J2405; J2470; J3373; J3475; J7050; P9016; Q9957

== ENCOUNTER 2025-09-23 14:23 | Emergency (ER) | payer MEDICARE, SELFPAY ==
[2025-09-23 14:25] VITALS: BP 142/82; PULSE 92; RESP 33; TEMP 36.8; O2SAT 92
--- NOTE | 2025-09-23 15:00 | ED.NAVMDI ---
HPI - Nausea/Vomiting/Diarrhea General Chief complaint: Nausea/Vomiting/Diarrhea Stated complaint: n/v Time Seen by Provider: 09/23/25 14:59 Source: patient Mode of arrival: ambulatory Limitations: no limitations History of Present Illness HPI Narrative: 60 years old white female, custodial by ambulance, complaining of nausea, vomiting and diarrhea for the last 3 days. Vomiting at least 2 more than 5 episodes a day, diarrhea nonstop. Patient denies any abdominal pain or any recent antibiotic intake. Patient is not sure if there is similar cases at the custodial or not Related Data Home Medications ?Medication ?Instructions ?Recorded ?Confirmed ?Last Taken ?Type albuterol sulfate 90 mcg/actuation 2 puff inhalation Q4H PRN 06/19/25 06/19/25 Unknown History aerosol inhaler shortness of breath or wheezing carvedilol 12.5 mg tablet 12.5 mg PO BID 06/19/25 06/19/25 06/19/25 History doxepin 25 mg capsule 25 mg PO HS 06/19/25 06/19/25 06/18/25 History fluoxetine 40 mg capsule 40 mg PO DAILY 06/19/25 06/19/25 06/19/25 History glucagon 1 mg solution for 1 mg subcut ONCE PRN hypoglycemia 06/19/25 06/19/25 Unknown History injection (Glucagon Emergency Kit) nystatin 100,000 unit/gram topical 1 applic topical BID 06/19/25 06/19/25 06/19/25 History powder rosuvastatin 20 mg tablet 20 mg PO HS 06/19/25 06/19/25 06/18/25 History Allergies Allergy/AdvReac Type Severity Reaction Status Date / Time iron (From Venofer) Allergy Severe Anaphylactic Verified 06/21/25 07:30 Shock clarithromycin Allergy Mild Diarrhea Verified 06/19/25 17:02 levofloxacin Allergy Mild Rash Verified 06/19/25 17:02 Penicillins Allergy Unknown Rash Verified 06/19/25 17:02 Review of Systems Review of Systems: All systems reviewed & are unremarkable except as noted in HPI and below PMFSH Past Medical History Medical History AMANDA (obstructive sleep apnea) Chronic anemia Obesity hypoventilation syndrome GERD (gastroesophageal reflux disease) COPD (chronic obstructive pulmonary disease) PUD (peptic ulcer disease) Hyperlipidemia Anxiety and depression Hypertension Diabetes Morbid obesity Chronic respiratory failure with hypoxia and hypercapnia Chronic diastolic (congestive) heart failure Family History Family History Mother Diabetes mellitus Cancer Hypertension Father Diabetes mellitus CKD (chronic kidney disease) Social History Social History Smoking status: Never smoker Alcohol intake: never Substance use: never Lack of Transportation: YES Lack of Food: Never True Current Housing: I Have Housing Concerned About Future Housing: YES Difficulty Paying Gas/Electric Bills: No Difficulty Paying for Meds: No Currently Unemployed: No Education: Trade/Vocational Certificate Difficulty w/ Childcare or Family Care: No Spiritual care concerns: No Exam Narrative: General appearance: Well-developed, well-nourished, morbidly obese Skin: Normal color Head: Normocephalic, nontraumatic Eyes: Clear conjunctiva ENT: Oropharynx normal, ears normal, nose normal Neck: Supple, nontender Chest and respiratory: Airway patent, no respiratory distress, no accessory muscle use Heart: Regular rate/rhythm Abdomen: Soft, nontender, no organomegaly, hyperactive bowel sounds, Wren catheter in place Vascular: Normal peripheral pulses, normal capillary refill. 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 tested, no gross motor deficit Course Vital Signs Vital signs: Vital Signs Temperature 36.8 C 09/23/25 14:25 Pulse Rate 92 09/23/25 14:25 Respiratory Rate 33 H 09/23/25 14:25 Blood Pressure 142/82 H 09/23/25 14:25 Pulse Oximetry 92 09/23/25 14:25 Oxygen Delivery Nasal Cannula 09/23/25 14:25 Oxygen Flow Rate 4 09/23/25 14:25 Temperature 36.8 C 09/23/25 14:25 Pulse Rate 92 09/23/25 15:48 Respiratory Rate 19 09/23/25 15:48 Blood Pressure 151/59 H 09/23/25 15:48 Pulse Oximetry 98 09/23/25 15:48 Oxygen Delivery Nasal Cannula 09/23/25 14:25 Oxygen Flow Rate 4 09/23/25 14:25 [facility] MDM Narrative Medical decision making narrative: Patient came with nausea vomiting and diarrhea for the last 4 days Vital signs: Respiratory rate 33 otherwise within normal limit Physical exam, morbidly obese, hyperactive bowel sounds, no abdominal tenderness Differential diagnosis gastroenteritis, electrolyte imbalance, dehydration Blood workup today includes CBC, CMP showed no significant abnormality Patient tested negative for COVID flu and RSV Patient was able to give fluid and crackers down by mouth prior to discharge. The pt was discharged to home.the pt,s condition upon discharge was fair,education was provided to the pt in reference to the final impression,discharge study results,treatment,prognosis and need for follow up . Differential Diagnosis Differential Diagnosis: As above Lab Data [facility] Lab Attestation statement: I personally reviewed the patient's lab results. 09/23/25 15:41 09/23/25 15:40 Labs: Lab Results 09/23/25 09/23/25 09/23/25 Range/Units 15:40 15:41 15:43 WBC 8.4 (4.5-10.0) K/mm3 RBC 3.44 L (4.2-5.4) M/mm3 Hgb 9.5 L (12.0-15.0) g/dL Hct 29.9 L (37.0-47.0) % MCV 86.9 (80-100) fl MCH 27.6 (26-34) pg MCHC 31.8 L (32-36) g/dl RDW 15.6 H (11.5-14.5) % Plt Count 212 D (150-375) k/mm3 MPV 9.5 (7.4-10.4) fl Immature Gran % (Auto) 0.5 (0-0.5) % Neut % (Auto) 78.7 H (45.5-73.1) % Lymph % (Auto) 13.1 L (18.3-44.2) % [place] % (Auto) 6.9 (2.6-8.5) % Eos % (Auto) 0.4 (0-4.4) % Baso % (Auto) 0.4 (0.2-1.2) % Lymph # (Auto) 1.10 (0.9-3.2) K/mm3 [place] # (Auto) 0.6 (0.1-0.6) K/mm3 Eos # (Auto) 0.0 (0-0.3) K/mm3 Baso # (Auto) 0.0 (0.0-0.1) K/mm3 Abs Immat Gran (auto) 0.04 H (0.00-0.031) K/mm3 Absolute Neuts (auto) 6.6 (1.3-6.7) K/mm3 Absolute Nucleated RBC 0.000 (0.0-0.012) K/mm3 Nucleated RBC % 0.0 (0.0-0.2) % Sodium 136 L (137-145) mmol/L Potassium 3.7 (3.4-5.0) mmol/L Chloride 94 L (98-107) mmol/L Carbon Dioxide 38 H (22-30) mmol/L Anion Gap 4 (4-12) mmol/L BUN 21 H D (7-17) mg/dL Creatinine 1.00 (0.7-1.0) mg/dL Estim Creat Clear Calc 95 ml/min Estimated GFR 57 L (59 - ) Glucose 187 H (65-110) mg/dL Calcium 9.1 (8.4-10.2) mg/dL Total Bilirubin 0.6 (0.2-1.3) mg/dL AST 30 (14-36) U/L ALT 21 (6-35) U/L Alkaline Phosphatase 82 (38-126) U/L Total Protein 8.9 H (6.3-8.2) g/dL Albumin 3.8 (3.5-5.1) g/dL Lipase 47 (23-300) U/L Urine Color Yellow (Yellow) Urine Appearance Turbid H (Clear) Urine pH >=9.0 H (5.0-9.0) Ur Specific [place] 1.016 (1.001-1.035) Urine Protein 3+ H (Negative) mg/dL Urine Glucose (UA) Trace H (Negative) mg/dL Urine Ketones Trace H (Negative) mg/dL Ur Blood (Man) Negative (Negative) Urine Nitrate Negative (Negative) Urine Bilirubin Negative (Negative) Urine Urobilinogen 1.0 (<2.0) mg/dL Add Ur Microanalysis Reviewed Leukocyte Esterase Rfl 3+ H (Negative) LEIA/UL Urine RBC 51-100 H (0-2) /hpf Urine WBC 21-50 H (0-3) /hpf Ur Squamous Epith Cells Occasional (Few) /hpf Triple Phos Crystals Present H (None) /hpf Urine Bacteria 4+ /hpf Urine Casts >20 Influenza A (RT-PCR) Negative (Negative) Influenza B (RT-PCR) Negative (Negative) RSV (RT-PCR) Negative (Negative) SARS-CoV-2 RNA (RT-PCR) Negative (Negative) Critical Care Time Critical Care Time Critical Care Time: No Discharge Plan Discharge Clinical Impression: Gastroenteritis Patient Disposition: [facility] Jail[facility]st Living Condition: Improved Instructions: Gastroenteritis (ED) Additional Instructions: Return if symptoms are worsening , call your family physician for appointment, take Tylenol as as needed for aches and pain, continue home medications. Patient Language: Faroese Prescriptions: New ondansetron 4 mg tablet,disintegrating 4 mg PO Q4H 0 Days Qty: 10 0RF Rx Instructions: 1st dose 1-2 hr before radiation No Action albuterol sulfate 90 mcg/actuation HFA aerosol inhaler 2 puff INHALATION Q4H PRN (Reason: shortness of breath or wheezing) carvedilol 12.5 mg tablet 12.5 mg PO BID doxepin 25 mg capsule 25 mg PO HS fluoxetine 40 mg capsule 40 mg PO DAILY Glucagon Emergency Kit (human) 1 mg recon soln 1 mg subcut ONCE PRN (Reason: hypoglycemia) nystatin 100,000 unit/gram powder 1 applic TOPICAL BID rosuvastatin 20 mg tablet 20 mg PO HS pantoprazole 40 mg Tablet,Delayed Release (Dr/Ec) 40 mg PO QAM Qty: 30 0RF furosemide 20 mg Tablet 20 mg PO BID Qty: 60 0RF Follow-up/Referrals: UNKNOWN,DOCTOR [Non-Staff]
--- OUTSIDE RECORDS SUMMARY | 2025-09-23 15:28 | XMS_ITS | Encounter Summary ---
Author Organization [facility] Address [address] [facility] Attn: Epic Prelude ADT KAYE [place] [address] Care Team Providers Care Setter Machine Name Role Phone Unavailable Primary Care Provider Unavailabl e Encounter Details Date Type Department Care Team (Late st Contact Info) Description 09/09/1993 Outpatient Historical Emmett Grady MD [address] [place] [phone] Social History Tobacco Use Types Packs/Day Years Used Date Smoking Tobacco: Never Assessed Comments Unknown Sex and Gender Information Value Date Recorded Sex Assigned at Not on file Legal Sex Female 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
--- OUTSIDE RECORDS SUMMARY | 2025-09-23 15:28 | XMS_ITS | Encounter Summary ---
Author Organization [facility] Address 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
--- OUTSIDE RECORDS SUMMARY | 2025-09-23 15:28 | XMS_ITS | Encounter Summary ---
Author Organization [facility] Address 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
--- OUTSIDE RECORDS SUMMARY | 2025-09-23 15:28 | XMS_ITS | Encounter Summary ---
Author Organization [facility] Address 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
--- OUTSIDE RECORDS SUMMARY | 2025-09-23 15:28 | XMS_ITS | Encounter Summary ---
Author Organization [facility] Address 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
--- OUTSIDE RECORDS SUMMARY | 2025-09-23 15:28 | XMS_ITS | Clinical Summary ---
Author Organization [facility] Home Care [facility] Home Care Address [address] [place] [address] Phone Care Team Providers Care Luggage Repairer Name Role Phone Shahbaz Shelby MD Unavailable [phone] Shahbaz Shelby DC Unavailable [phone] Siria Spangler [employer] Primary Care Provider Allergies Active Allergy Reactions Criticality Noted Date Comments Clarithromycin Diarrhea Low 10/02/2019 Levofloxacin Rash Medium 03/17/2013 Penicillins Rash Medium 03/17/2013 Iron Sucrose Anaphylaxis High 11/15/2022 Medications FLUoxetine (PROzac) 20 mg capsule Take 2 capsules (40 mg total) by mouth daily 0 04/17/20 18 Active ipratropium-albut Min (DUO-NEB) 0.5-2.5 mg/3 mL nebulizer solutionIndicatio ns:Chronic Obstructive Pulmonary Disease with Bronchospasms Take 3 mL by nebulization every 4 (four) hours 01/24/20 23 Active insulin glargine 100 unit/mL vial for injection Inject 20 Units under the skin nightly 10 mL 01/24/20 23 Active insulin lispro (HumaLOG, ADMELOG) 100 unit/mL vial for injectionIndicati ons:Diabetes Mellitus Inject 3 Units under the skin 3 (three) times a day with meals 10 mL 01/24/20 23 Active insulin lispro (HumaLOG, ADMELOG) 100 unit/mL vial for injectionIndicati ons:Diabetes Mellitus Inject 0-10 Units under the skin 3 (three) times a day with meals 10 mL 01/24/20 Active dextrose 15 gram/32 mL gel in packetIndications :hypoglycemic disorder Take 32 mL (15 g total) by mouth every 15 (fifteen) minutes as needed (blood glucose less than 70 mg/dL) 01/24/20 Active glucagon 1 mg kit Inject 1 mL (1 mg total) into the muscle as instructed every 30 (thirty) minutes as needed (blood glucose less than 70 mg/dL AND no IV access AND unable to take PO glucose/juice.) 01/24/20 Active diphenhydrAMINE (BENADRYL) 12.5 mg chewable tablet Take 1 tablet (12.5 mg total) by mouth every 6 (six) hours as needed for itching 30 tablet 01/24/20 Active ALPRAZolam (XANAX) 0.25 mg tablet Take 1 tablet (0.25 mg total) by mouth 2 (two) times a day as needed for anxiety 30 tablet 01/24/20 Active carvediloL (COREG) 12.5 mg tablet Take 1 tablet (12.5 mg total) by mouth 2 (two) times a day with meals 01/24/20 Active senna-docusate (PERICOLACE) 8.6-50 mg Take 1 tablet by mouth 2 (two) times a day 90 tablet 02/23/20 Active albuterol HFA (PROVENTIL HFA,VENTOLIN HFA,PROAIR HFA) 90 mcg/actuation inhaler INHALE 2 PUFFS BY MOUTH EVERY 4 HOURS NEEDED FOR WHEEZING OR SHORTNESS OF BREATH 8.5 g 08/13/20 Active furosemide (LASIX) 40 mg tablet Take 1 tablet (40 mg total) by mouth 2 (two) times a day Active rosuvastatin (CRESTOR) 20 mg tablet Take 1 tablet (20 mg total) by mouth daily Active doxepin (SINEquan) 25 mg capsule Take 1 capsule (25 mg total) by mouth nightly Active baclofen (LIORESAL) 10 mg tablet Take 1 tablet (10 mg total) by mouth 2 (two) times a day Active insulin glargine 100 unit/mL (3 mL) pen for injection Inject 20 Units under the skin 2 (two) times a day Active gabapentin (NEURONTIN) 100 mg capsule Take 1 capsule (100 mg total) by mouth 2 (two) times a day Active gabapentin (NEURONTIN) 100 mg capsule Take 3 capsules (300 mg total) by mouth nightly Active aspirin 81 mg chewable tablet Take 1 tablet (81 mg total) by mouth daily Active potassium chloride ER (KLOR-CON) 10 mEq CR tablet Take 1 tablet/capsule (10 mEq total) by mouth daily 30 tablet 09/19/20 24 Active HYDROcodone-aceta minophen (NORCO) 5-325 mg per tabletIndications :Pain Take 1 tablet by mouth every 6 (six) hours as needed for pain 20 tablet 05/12/20 25 Active Active Problems Problem Noted Date Diagnosed Date Generalized abdominal pain 09/09/2024 Assessment & Plan (09/09/2024 2:32 PM INSURANCE ADVISOR): Complaining more today although it has been present since prior to admission. Accompanied by nausea. No improvement with Zofran so we added Compazine. We will also add pantoprazole. She has a history of ulcers and should probably be on this chronically any way. Cellulitis 09/08/2024 Assessment & Plan (09/08/2024 1:53 PM INSURANCE ADVISOR): Complicated by her morbid obesity and overlapping skin folds. In addition to coverage for staph and strep vancomycin I am adding cefepime and topical antifungal therapy. Acute kidney injury 09/08/2024 Assessment & Plan (09/09/2024 2:30 PM INSURANCE ADVISOR): This is new since last hospitalization. One data point from April 2024 with creatinine of 1.27 so not far off from that. I am going to hydrate and reassess. She was on chronic furosemide. We will hold that. No clinical signs of heart failure so I think were okay there. Creatinine is improving. Continue to hold diuretics. Continue to monitor daily. Chronic midline low back pain 09/08/2024 Assessment & Plan (09/09/2024 2:31 PM INSURANCE ADVISOR): This is unchanged from baseline. Really no indication for big workup. Unchanged Chronic respiratory failure with hypoxia and hyp ercapnia 09/08/2024 Assessment & Plan (09/08/2024 1:54 PM INSURANCE ADVISOR): Patient uses BiPAP with oxygen supplementation anytime she was asleep. She has been compliant with that and we will continue. Chronic diastolic heart failure 09/08/2024 Overview (09/08/2024): On daily furosemide and carvedilol. Presently well compensated. Assessment & Plan (09/09/2024 2:31 PM INSURANCE ADVISOR): Continues to be stable. Continue to hold furosemide due to kidney injury Abdominal wall cellulitis 09/08/2024 Assessment & Plan (09/09/2024 2:29 PM INSURANCE ADVISOR): Patient continues on cefepime and vancomycin. Today I added fluconazole as there is undoubtedly fungus involved. Anticipate this will take 3 or 4 days of treatment and aggressive skin care. Moisture wicking dressings are in place. Pneumonia of both lungs due to infectious organism, unspecified part of lung 02/19/2023 Pneumonia due to infectious organism, unspecified laterality, unspecified part of lung 01/20/2023 Debility 01/11/2023 Assessment & Plan (09/08/2024 1:55 PM INSURANCE ADVISOR): Multifactorial but mostly related to her morbid obesity. We will treat her underlying infection and then try to get her up with therapy. Assessment & Plan (01/11/2023 9:43 AM CDT): Pt/ot consult Acute on chronic heart failu re with preserved ejection fraction (HFpEF) 11/24/2022 Assessment & Plan (01/11/2023 9:41 AM CDT): Continue lasix to 20 mg IV q day Follow cmp Acute on chronic respiratory failure with hypoxia and hypercapnia 11/21/2022 Uncontrolled type 2 diabetes mellitus with hyperglycemia, without long-term current use of insulin 05/12/2018 Assessment & Plan (01/11/2023 9:39 AM CDT): Increase lantus to 40 units subq qday Stop ssi since patient is eating Start humalog 6 units subq AC Follow BS AC Need to increase long acting insulin since BS look cover with mealtime insulin Essential hypertension 05/12/2018 Assessment & Plan (01/11/2023 9:41 AM CDT): Increase lisinopril to 40 mg po qday Hydralazine prn hypertension Anxiety and depression 05/12/2018 Assessment & Plan (09/09/2024 2:30 PM INSURANCE ADVISOR): On alprazolam and fluoxetine. Continue for now. Symptoms are stable no change today. Mild episode of recurrent major depressive disor raghavendra 03/17/2013 Mixed hyperlipidemia 03/17/2013 Morbid obesity with BMI of 70 and over, adult Assessment & Plan (09/08/2024 1:56 PM INSURANCE ADVISOR): Contributing to all her comorbidities unfortunately. Peptic ulcer 03/17/2013 Personal history of colonic polyps 03/17/2013 Type 2 diabetes mellitus wit h hyperglycemia, with long-term current use of insulin ([facility] 03/17/2013 Assessment & Plan (09/08/2024 1:56 PM INSURANCE ADVISOR): ast hemoglobin A1c in the office was excellent at less than 7 but blood sugars have been high probably related to the infection. We will increase her sliding scale and basal insulin for better control. 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 Influenza Resolved Problems Problem Noted Date Diagnosed Date Resolved Date Nausea and vomiting, unspeci fied vomiting type 01/07/2023 01/16/2023 Other specified anemias 11/12/2022 02/2 10/2022 Cellulitis of left leg 10/23/202211/19 Nausea, vomiting and diarrhea 10/22/2022 11/19/2022 Overview (11/12/2022): Added automatically from request for surgery [id number] Lumbar radiculitis 11/22/2019 3 Acute respiratory failure wi th hypoxia (CMS/HCC) 10/02/2019 01/16/2023 Assessment & Plan (01/11/2023 9:42 AM CDT): Try to titrate oxygen down as tolerated Continue BPAP last night Transfer to the floor COPD with exacerbation 10/02/201901/16 Assessment & Plan (01/10/2023 9:21 AM CDT): Continue steroids and nebs for now HAP (hospital-acquired pneumonia) 10/02/2019 01/16/2023 Assessment & Plan (01/11/2023 9:40 AM CDT): Culture positive for mrsa Continue vancomycin Sepsis 10/02/2019 11/22/2019 Abdominal wall abscess 05/12/201811/22 Hyponatremia 05/12/2018 11/22/2019 Encounters Date Type Department Care Team Description 07/04/2025 Orders Only [facility] Medical Group Cardiology [address] [place] [id number] Isidra John NP 06/26/2025 Orders Only [facility] Medical [facility] Cardiology [address] [place] [address] Ashley Lozoya NP from Last 3 Months Immunizations Immunization Administration Dates Next Due Influenza, Trivalent, Preservative Free, Intramu scular 09/19/2024 Surgical History Surgery Date Site/Laterality Comments ENDOMETRIAL ABLATION COLONOSCOPY INCISION AND DRAINAGE Medical History Medical History Date Comments Diabetes Gastroesophageal reflux disease Hypertension Depression Peptic ulcer disease Colon polyps Sanchez's palsy Bilateral Sanchez's palsy in the past Type 2 diabetes mellitus Obesity Social History Tobacco Use Types Packs/Day Years Used Date Smoking Tobacco: Never Smokeless Tobacco: Never Tobacco Cessation:Counseling Given: Not Answered Alcohol Use Standard Drinks/Week Comments No 0 (1 standard drink = 0.6 oz pur e alcohol) Social Connection and Isolation Panel Answer Date Recorded In a typical week, how many times do you talk on the phone with family, friends, or neighbors? Three times a week 09/12/2024 How often do you get togethe r with friends or relatives? Once a week 09/12/2024 How often do you attend [facility] or moravian services? Never 09/12/2024 Do you belong to any clubs o r organizations such as christianity groups, unions, fraternal or athletic groups, or school groups? No 09/12/2024 How often do you attend meet ings of the clubs or organizations you belong to? Never 09/12/2024 Are you , , di vorced, , never , or living with a partner? 09/12/2024 AUDIT-C Answer Date Recorded Q1: How often do you have a drink containing alcohol? Never 02/19/2023 Q2: How many drinks containi ng alcohol do you have on a typical day when you are drinking? Patient does not drink Q3: How often do you have si x or more drinks on one occasion? Never 02/19/2023 Overall Financial Resource Strain (CARDIA) Answe r Date Recorded How hard is it for you to pa y for the very basics like food, housing, medical care, and heating? Somewhat hard 09/12/2024 PRAPARE - Transportation Answer Date Re corded In the past 12 months, has l ack of transportation kept you from medical appointments or from getting medications? No 08/28 In the past 12 months, has l ack of transportation kept you from meetings, work, or from getting things needed for daily living? No 09/12/2024 Housing Stability Vital Sign Answer Marcin e Recorded In the last 12 months, was t here a time when you were not able to pay the mortgage or rent on time? No 02/20/2023 In the last 12 months, how many places have you lived? 2 02/20/2023 In the last 12 months, was t here a time when you did not have a steady place to sleep or slept in a longterm (including now)? No 02/20/2023 Housing Stability Vital Sign Answer Marcin e Recorded In the last 12 months, was t here a time when you were not able to pay the mortgage or rent on time? No 09/12/2024 In the past 12 months, how m any times have you moved where you were living? 1 09/12/2024 At any time in the past 12 m [facility], were you homeless or living in a longterm (including now)? No 09/12/2024 Social Connection and Isolation Panel Answer Date Recorded In a typical week, how many times do you talk on the phone with family, friends, or neighbors? Three times a week 05/09/2025 How often do you get togethe r with friends or relatives? Three times a week 05/09/2025 How often do you attend chur ch or moravian services? Never 05/09/2025 Do you belong to any clubs o r organizations such as christianity groups, unions, fraternal or athletic groups, or school groups? No 05/09/2025 How often do you attend meet ings of the clubs or organizations you belong to? Never 05/09/2025 Are you , , di vorced, , never , or living with a partner? 05/09/2025 Overall Financial Resource Strain (CARDIA) Answe r Date Recorded How hard is it for you to pa y for the very basics like food, housing, medical care, and heating? Not very hard 05/09/2025 Hunger Vital Sign Answer Date Recorded Within the past 12 months, y ou worried that your food would run out before you got the money to buy more. Never true 05/09/20 25 Within the past 12 months, t he food you bought just didn't last and you didn't have money to get more. Never true 05/09/2025 PRAPARE - Transportation Answer Date Re corded In the past 12 months, has l ack of transportation kept you from medical appointments or from getting medications? Yes 04/28 In the past 12 months, has l ack of transportation kept you from meetings, work, or from getting things needed for daily living? Yes 05/09/2025 Housing Stability Vital Sign Answer Marcin e Recorded In the last 12 months, was t here a time when you were not able to pay the mortgage or rent on time? No 05/09/2025 In the past 12 months, how m any times have you moved where you were living? 0 05/09/2025 At any time in the past 12 m [facility], were you homeless or living in a longterm (including now)? No 05/09/2025 [facility] Utilities Answer Date Recorded In the past 12 months has th e electric, gas, oil, or water company threatened to shut off services in your home? No 05/09/2025 Personal Safety Answer Date Recorded Have you ever been in or are you currently in a harmful physical or emotional relationship or is someone making you feel afraid or unsafe? Denies 05/08/2025 Comments No Sex and Gender Information Value Date Recorded Sex Assigned at Not on file Legal Sex Female 4:44 PM INSURANCE ADVISOR Gender Identity Not on file Sexual Orientation Not on file Last Filed Vital Signs Vital Sign Reading Time Taken Comments Blood Pressure 144/65 05/12/2025 8:31 AM CDT Pulse 66 05/12/2025 8:31 AM CDT Temperature 36.4 C (97.5 F) 05/12/2025 8:31 AM CDT Respiratory Rate 20 05/12/2025 8:31 AM CDT Oxygen Saturation 100% 05/12/2025 8:31 AM CDT Inhaled Oxygen Concentration - - Weight 265.1 kg (584 lb 7 oz) 05/08/2025 11:10 P M CDT Height 167.6 cm (5' 5.98) 05/08/2025 11:10 PM C DT Body Mass Index 94.38 05/08/2025 11:10 PM CDT Plan of Treatment Health Maintenance Due Date Last Done Comments Albumin Creatinine Ratio, Urine 1967 Breast Cancer Screening-Mammogram 1967 Cervical Cancer Screening 1967 Colon Cancer Screening-Colonoscopy 1967 Depression Screening 1967 Dilated Eye Exam 1967 Foot Exam 1967 Hepatitis B Screening 1985 Regular Well Visit/Exam 18-64 1985 Pneumococcal vaccine <65 (3 of 3 - PCV20 or PCV21) 2017 04/10/2011, 04/10/2011 Zoster Vaccine (1 of 2) 2017 Lipid Panel 01/21/2024 01/20/2023, 12/28, 07/12/2019 Hemoglobin A1C 11/05/2024 05/05/2024, 08/29, 03/26/2023, Additional history exists Covid-19 Vaccine (3 - 2024-2 6 season) 2025 11/24/2020, 10/27/2020 Influenza Vaccine (#1) 2025 4, 09/22/2023, 07/17/2022, Additional history exists DTaP/Tdap/Td Vaccine (3 - Td or Tdap) 10/04/2025 10/04/2015, 06/06/2004, 06/02/2004 eGFR 05/09/2026 05/09/2025, 03/29, 10/11/2024, Additional history exists Hepatitis C Screening Completed 01/07/2023 Procedures Procedure Name Priority Date/Time Associated Diagnosis Comments EGFR STAT 05/09/2025 3:03 AM CDT HEMOGLOBIN A1C STAT 01/20/2023 1:31 PM CDT LIPID PANEL STAT 01/20/2023 1:31 PM CDT HEPATITIS PANEL, ACUTE Routine 01/07/2023 4:22 PM CDT from Last 3 Months or Most Recently Relevant to Health Maintenance Results * (ABNORMAL) eGFR (05/09/2025 3:03 AM CDT) eGFR 43(L) >=60 mL/min/1. 73 m2 Comment: Interpretive Data Reference Interval Normal >/= 90 mL/min/1.73m2 Mildly decreased* 60 - 89 mL/min/1.73m2 Mildly to moderately decreased 45 - 59 mL/min/1.73m2 Moderately to severely decreased 30 - 44 mL/min/1.73m2 Severely decreased 15 - 29 mL/min/1.73m2 Kidney Failure < 15 mL/min/1.73m2 *Relative to young adult level Estimated glomerular filtration rate is determined by the 2020 CKD-EPI equation recommended by the National Kidney Foundation (A Unifying Approach to GFR Estimation: Recommendations of the NKF-ASK Task Force on Reassessing the Inclusion of Race in Diagnosing Kidney Disease, JASN 2020). The CKD-EPI equation should not be used for patients with unstable renal function and has not been validated in children and those over 70. Current interpretive data was last reviewed 2021. Blood 05/09/2025 3:03 AM CDT 05/09/2025 3:13 AM CDT Emma Naranjo MD LAB BLOOD ORDERABLES Fi nal Result [facility] ([place]) [address] [place] [address] * (ABNORMAL) Hemoglobin A1c (01/20/2023 1:31 PM CDT) Hgb A1C 7.1(H) 4.0 - 5.6 % [facility] Estimated Average Glucose 157 mg/dL [facility] Comment: The ADA recommends reporting an estimated Average Glucose (eAG) with all Hemoglobin A1c results using the equation derived from a study of 507 normal and diabetic adults. Minority populations were underrepresented and children were not included. (Diabetes Care 2020; 43(S1): S66-S76). The eAG is not equivalent to a fasting glucose. Blood 01/20/2023 1:31 PM CDT 01/20/2023 2:25 PM CDT Too Urias MD LAB BLOOD ORDERABLES Kinsey l Result [facility] [place] [address] * (ABNORMAL) Lipid panel (01/20/2023 1:31 PM CDT) Cholesterol 169 30 - 199 mg/dL [facility] Comment: Interpretive Data Ages < or = 19 years Acceptable: <170 mg/dL Borderline high: 170-199 mg/dL High: >or= 200 mg/dL Ages > or = 20 years Desirable: <200 mg/dL Borderline high: 200-239 mg/dL High: >or= 240 mg/dL Literature References: 1. Expert Panel on Integrated Guidelines for Cardiovascular Health and Risk Reduction in Children and Adolescents. Pediatrics 2011;128:S213 2. NCEP Expert Panel. Circulation 2004;110:227 Current Interpretive Data was last revised on 2018. Triglycerides 141 <=149 mg/dL [facility] Comment: Interpretive Data Ages < or = 9 years Acceptable: <75 mg/dL Borderline high: 75-99 mg/dL High: >or= 100 mg/dL Ages 10 to 20 years Acceptable: <90 mg/dL Borderline high: 90-129 mg/dL High: >or= 130 mg/dL Ages > or = 20 years Desirable: <150 mg/dL Borderline high: 150-199 mg/dL High: 200-499 mg/dL Very high: >or= 499 mg/dL Literature References: 1. Expert Panel on Integrated Guidelines for Cardiovascular Health and Risk Reduction in Children and Adolescents. Pediatrics 2011;128:S213 2. NCEP Expert Panel. Circulation 2004;110:227 Current Interpretive Data was last revised on 2018. HDL 28(L) >=40 mg/dL [facility] Comment: Interpretive Data Ages < or = 19 years Acceptable: >45 mg/dL Borderline low: 40-45 mg/dL Low: <40 mg/dL Ages > or = 20 years Desirable: >or= 60 mg/dL Low: <40 mg/dL Literature References: 1. Expert Panel on Integrated Guidelines for Cardiovascular Health and Risk Reduction in Children and Adolescents. Pediatrics 2011;128:S213 2. NCEP Expert Panel. Circulation 2004;110:227 Current Interpretive Data was last revised on 2018. LDL, calculated 113 <=129 mg/dL [facility] Comment: Interpretive Data Ages < or = 19 years Acceptable: <110 mg/dL Borderline high: 110-129 mg/dL High: >or= 130 mg/dL Ages > or = 20 years Optimal: <100 mg/dL Near optimal: 100-129 mg/dL Borderline high: 130-159 mg/dL High: >160 mg/dL Literature References: 1. Expert Panel on Integrated Guidelines for Cardiovascular Health and Risk Reduction in Children and Adolescents. Pediatrics 2011;128:S213 2. NCEP Expert Panel. Circulation 2004;110:227 Current Interpretive Data was last revised on 2018. Non-HDL Cholesterol 141 mg/dL [facility] Comment: Interpretive Data Ages < or = 19 years Acceptable: <120 mg/dL Borderline high: 120-144 mg/dL High: >145 mg/dL Ages > or = 20 years When triglycerides are >200 mg/dL, Non-HDL cholesterol is a secondary target of therapy with treatment goals that are 30 mg/dL greater than the LDL cholesterol target. Literature References: 1. Expert Panel on Integrated Guidelines for Cardiovascular Health and Risk Reduction in Children and Adolescents. Pediatrics 2011;128:S213 2. NCEP Expert Panel. Circulation 2004;110:227 Current Interpretive Data was last revised on 2018. Chol/HDL ratio 6 [facility] Blood 01/20/2023 1:31 PM CDT 01/20/2023 2:15 PM CDT Too Urias MD LAB BLOOD ORDERABLES Kinsey darwin Result [facility] [place] [address] * Hepatitis panel, acute (01/07/2023 4:22 PM CDT) Hep A IgM Nonreactive Nonreactive [facility] ([place] Comment: Interpretive Data: If Hep A IgM Ab is reported as Equivocal, a new sample should be drawn in two weeks for testing. Current interpretive data was last revised on 19. Testing performed by: [facility], [address] [place] [address]., [id number] Hep B core IgM Nonreactive Nonreactive [facility] ([place] Comment: Interpretive Data If HepB Core IgM Ab is reported as Equivocal, a new sample should be drawn in two weeks for testing. Current interpretive data was last revised on 19. Testing performed by: [facility], [address] [place] [address]., [id number] Hep C Ab Nonreactive Nonreactive [facility] ([place]) Comment: Interpretive Data Nonreactive: Antibodies to HCV not detected. Does NOT exclude the possibility of recent exposure to HCV. Equivocal: Equivocal for HCV antibodies. Supplemental molecular testing will be automatically performed to determine infection status in accordance with current CDC screening recommendations. Reactive: Positive for HCV antibodies. This may represent current or past HCV infection. Supplemental molecular testing will be automatically performed to determine current infection status in accordance with current CDC screening recommendations. Interpretive data was last revised on 2019. Testing performed by: [facility], [facility] [facility], [place]., [address] HepBsAg Nonreactive Nonreactive [facility] ([place]) Comment:Testing performed by : [facility], [address] [facility], [place]., [address] Blood 01/07/2023 4:22 PM CDT 01/08/2023 12:12 PM CDT us Clement Scales MD LAB MICROBIOLOGY - GENERAL O RDERABLES Final Result [facility] ([place]) [address] [facility] Department [place] [address] from Last 3 Months or Most Recently Relevant to Health Maintenance Insurance [facility] [place] [address] [place] [address] MEDICARE MEDICARE Advance Directives For more information, please contact: [phone] * Full Code (Latest Code Status on File) Date Activated Date Inactivated Comments 09/08/2024 2:46 PM 09/19/2024 11:26 PM * Full Code Date Activated Date Inactivated Comments 02/19/2023 5:04 PM 02/22/2023 2:49 PM * Full Code Date Activated Date Inactivated Comments 01/20/2023 9:15 PM 01/24/2023 1:13 AM * Full Code Date Activated Date Inactivated Comments 01/07/2023 1:48 PM 01/16/2023 5:30 PM * Full Code Date Activated Date Inactivated Comments 10/23/2022 1:57 PM 11/20/2022 3:35 PM Care Teams Luggage Repairer Relationship Specialty Start Date End Date Siria Spangler NP [address] [place] [address] PCP - General Family Medicine 12/01/23 Shahbaz Shelby MD [address] [place] [address] Surgeon Orthopedic Surgery 10/29/22 Shahbaz Shelby DC [address] [facility] [address] [place] [address] Chiropractic Medicine 02/22/23
--- OUTSIDE RECORDS SUMMARY | 2025-09-23 15:28 | XMS_ITS | Encounter Summary ---
Author Organization [facility] Address 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
--- OUTSIDE RECORDS SUMMARY | 2025-09-23 15:28 | XMS_ITS | Encounter Summary ---
Author Organization [facility] Address 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
--- OUTSIDE RECORDS SUMMARY | 2025-09-23 15:28 | XMS_ITS | Encounter Summary ---
Author Organization [facility] Address 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
[2025-09-23 15:47] LABS: Hematocrit 29.9 % (37.0-47.0); Hemoglobin 9.5 g/dL (12.0-15.0); Immature Granulocyte Percent A 0.5 % (0-0.5); Lymphocytes Absolute Auto 1.10 K/mm3 (0.9-3.2); Mean Corpuscular HGB Conc 31.8 g/dl (32-36); Mean Corpuscular Hemoglobin 27.6 pg (26-34); Mean Corpuscular Volume 86.9 fl (80-100); Nucleated Red Blood Cells Absolute Auto 0.000 K/mm3 (0.0-0.012); Nucleated Red Blood Cells Perc 0.0 % (0.0-0.2); Platelet Count Result 212 k/mm3 (150-375); Red Blood Count 3.44 M/mm3 (4.2-5.4); White Blood Count 8.4 K/mm3 (4.5-10.0)
[2025-09-23] MEDS: SODIUM CHLORIDE 0.9% IV 1,000 ML 999 ML IV CONT (15:47)
[2025-09-23] MEDS: ONDANSETRON INJ 4 MG/2 ML VIAL IV PUSH (15:47)
[2025-09-23 15:48] VITALS: BP 151/59; PULSE 92; RESP 19; O2SAT 98
[2025-09-23 16:00] LABS: Alanine Aminotransferase 21 U/L (6-35); Albumin Level 3.8 g/dL (3.5-5.1); Alkaline Phosphatase 82 U/L (38-126); Anion Gap 4 mmol/L (4-12); Aspartate Amino Transferase 30 U/L (14-36); Bilirubin,Total 0.6 mg/dL (0.2-1.3); Blood Urea Nitrogen 21 mg/dL (7-17); Calcium 9.1 mg/dL (8.4-10.2); Carbon Dioxide 38 mmol/L (22-30); Chloride 94 mmol/L (98-107); Estimated CRCL calculation 95 ml/min; Estimated Glomerular Filt Rate 57; Glucose 187 mg/dL (65-110); Lipase 47 U/L (23-300); Potassium 3.7 mmol/L (3.4-5.0); Sodium 136 mmol/L (137-145); Total Protein 8.9 g/dL (6.3-8.2)
[2025-09-23 16:12] LABS: Add Urine Microscopic? YES; Appearance Urine Turbid (Clear); Glucose Urine UA Trace mg/dL (Negative); Leukocyte Esterase Ur 3+ LEU/UL (Negative); Need Manual Microscopic Reviewed; Nitrate Urine Negative (Negative); Non Pathogenic Casts >20; Specific Grav Ur 1.016 (1.001-1.035)
[2025-09-23 16:25] LABS: Influenza A QL RT-PCR Negative (Negative); Influenza B QL RT-PCR Negative (Negative); RSV RNA, RT-PCR Negative (Negative); SARS-CoV-2 RNA PCR Negative (Negative)
== END 2025-09-23 19:32 ==
PROVIDERS: Emergency Provider Emergency Medicine
DX: K52.9 Noninfective gastroenteritis and colitis, unspecified (principal); R82.998 Other abnormal findings in urine; Z20.822 Contact with and (suspected) exposure to COVID-19; I50.32 Chronic diastolic (congestive) heart failure; I11.0 Hypertensive heart disease with heart failure; J44.9 Chronic obstructive pulmonary disease, unspecified; J96.12 Chronic respiratory failure with hypercapnia; J96.11 Chronic respiratory failure with hypoxia; E78.5 Hyperlipidemia, unspecified; E66.01 Morbid (severe) obesity due to excess calories; Z68.44 Body mass index [BMI] 60.0-69.9, adult; E11.9 Type 2 diabetes mellitus without complications; D64.9 Anemia, unspecified; G47.33 Obstructive sleep apnea (adult) (pediatric); K21.9 Gastro-esophageal reflux disease without esophagitis; F41.9 Anxiety disorder, unspecified; F32.A Depression, unspecified; Z87.11 Personal history of peptic ulcer disease; Z79.899 Other long term (current) drug therapy
CPT/HCPCS: 36415; 80053; 81001; 83690; 85025; 87086; 87637; 96361; 96374; 99284; J2405; J7030